=== PATIENT | female | born 1955 | race Caucasian/White ===

== ENCOUNTER → 2016-10-20 | Outpatient (REF) | payer MEDICARE, MEDICAID ==
[~2016-10-20] MED LIST: BABY81CH; CALCIUM & VITAMIN D; CLARITAN; DEBROX; LACT10SO8; MULTIVIT; PANCREASE; PRIL40CA; ZOCO20TA
== END ==
LOC: M WUC 18:10
PROVIDERS: ATTEND Physician Assistant
DX: N39.0 Urinary tract infection, site not specified (principal)

== ENCOUNTER → 2016-10-27 | Outpatient (CLI) | payer MEDICARE, MEDICAID ==
[2016-10-27 09:36] LABS: MEAN CORPUSCULAR HEMOGLOBIN 28.7 pg (27.0-33.0); MEAN CORPUSCULAR HGB CONC 33.4 g/dl (32.0-36.5); MEAN CORPUSCULAR VOLUME 85.7 fl (80.0-96.0); RED CELL DISTRIBUTION WIDTH 12.4 % (11.5-14.5); WHITE BLOOD COUNT 5.4 K/mm3 (4.0-10.0)
--- NOTE | 2016-10-27 09:36 | REP ---
Clinical: thoracic pain. Technique: AP, lateral, and swimmers views. Comparison: 06/12/2008 Findings: Alignment and kyphosis is maintained. Vertebral bodies intact. No acute fracture / compression injury or subluxation. Mild age-related changes. Paravertebral soft tissues are normal. Impression: Age appropriate thoracic spine series. No acute fracture / compression injury or subluxation. Signed by Willy Crocker MD 10/27/2016 09:27 A
--- NOTE | 2016-10-27 09:37 | REP ---
Clinical: Pain. Technique: AP, lateral, bilateral oblique and coned-down views. Comparison: 06/12/2008. Findings: No acute fracture / compression injury or subluxation. Alignment and lordosis maintained. Advanced multilevel degenerative changes include osteophytosis, endplate sclerosis/irregularity and disc space narrowing along with hypertrophic facet changes. Findings appear chronic and mildly progressive compared to prior examination. Impression: Multilevel degenerative changes progressive when compared to prior examination. No acute fracture / compression injury or subluxation. Signed by Willy Crocker MD 10/27/2016 09:29 A
[2016-10-27 09:45] LABS: ALBUMIN 3.3 GM/DL (3.2-5.2); ALBUMIN/GLOBULIN RATIO 1.06 (1.00-1.93); BILIRUBIN,TOTAL 0.3 MG/DL (0.2-1.0); CALCIUM LEVEL 8.8 MG/DL (8.8-10.2); CREATININE FOR GFR 1.22 MG/DL (0.55-1.02); GLOMERULAR FILTRATION RATE 47.5 (>45); POTASSIUM SERUM 4.1 MEQ/L (3.5-5.1); TOTAL PROTEIN 6.4 GM/DL (6.4-8.2)
[2016-10-27 10:11] LABS: ERYTHROCYTE SEDIMENTATION RATE 33 mm/hr (0-30)
[2016-10-27 10:51] LABS: EOSINOPHILS 5 % (0-5)
[2016-10-27 10:52] LABS: ANISOCYTOSIS 1+
== END ==
LOC: M LAB 08:29
PROVIDERS: ATTEND Family Medicine
DX: M47.816 Spondylosis without myelopathy or radiculopathy, lumbar region (principal); M51.37 Other intervertebral disc degeneration, lumbosacral region

== ENCOUNTER → 2016-10-31 | Outpatient (CLI) | payer MEDICARE, MEDICAID ==
--- NOTE | 2016-10-31 19:17 | REP ---
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 I suspect there is a small effusion in the suprapatellar pouch. No fracture or dislocation. There is soft tissue calcifications anterior to the tibial tuberosity, likely degenerative. Signed by Bharathi Armstrong MD 10/31/2016 07:09 P
== END ==
LOC: M WUC 16:44
PROVIDERS: ATTEND Physician Assistant Medical
DX: M25.461 Effusion, right knee (principal); M25.462 Effusion, left knee; M17.4 Other bilateral secondary osteoarthritis of knee; M79.9 Soft tissue disorder, unspecified

== ENCOUNTER → 2016-12-01 | Outpatient (CLI) | payer MEDICARE, MEDICAID ==
[2016-12-01 09:51] LABS: BASO % 0.4 % (0.0-1.0); EOS # 0.1 K/mm3 (0.0-0.50); LARGE UNSTAINED CELL # 0.1 K/mm3 (0.0-0.4); LARGE UNSTAINED CELL % 1.8 % (0.0-4.0); LYMPH # 1.5 K/mm3 (1.5-4.5); LYMPH % 27.2 % (24.0-44.0); MEAN CORPUSCULAR HEMOGLOBIN 27.9 pg (27.0-33.0); MEAN CORPUSCULAR HGB CONC 32.4 g/dl (32.0-36.5); MEAN CORPUSCULAR VOLUME 86.3 fl (80.0-96.0); MONO # 0.4 K/mm3 (0.0-0.8); MONO % 6.8 % (0.0-5.0); NEUTROPHILS # 3.1 K/mm3 (1.8-7.7); NEUTROPHILS % 61.8 % (36.0-66.0); PLATELET COUNT, AUTOMATED 165 k/mm3 (150-450); RED CELL DISTRIBUTION WIDTH 12.4 % (11.5-14.5); WHITE BLOOD COUNT 5.1 K/mm3 (4.0-10.0)
[2016-12-01 09:56] LABS: ALBUMIN 3.4 GM/DL (3.2-5.2); ALBUMIN/GLOBULIN RATIO 1.17 (1.00-1.93); ALKALINE PHOSPHATASE 52 U/L (45-117); ALT/SGPT 25 U/L (12-78); ANION GAP 6 MEQ/L (8-16); AST/SGOT 22 U/L (15-37); BILIRUBIN,TOTAL 0.3 MG/DL (0.2-1.0); BLOOD UREA NITROGEN 14 MG/DL (7-18); CALCIUM LEVEL 8.9 MG/DL (8.8-10.2); CARBON DIOXIDE LEVEL 33 MEQ/L (21-32); CHLORIDE LEVEL 100 MEQ/L (98-107); CREATININE FOR GFR 1.26 MG/DL (0.55-1.02); GLOMERULAR FILTRATION RATE 45.8 (>45); GLUCOSE, FASTING 94 MG/DL (80-110); POTASSIUM SERUM 4.8 MEQ/L (3.5-5.1); SODIUM LEVEL 139 MEQ/L (136-145); TOTAL PROTEIN 6.3 GM/DL (6.4-8.2)
== END ==
LOC: M LAB 09:05
PROVIDERS: ATTEND Family Medicine
DX: E03.9 Hypothyroidism, unspecified (principal); B35.1 Tinea unguium; N18.3 Chronic kidney disease, stage 3 (moderate); E78.5 Hyperlipidemia, unspecified; R73.01 Impaired fasting glucose; M85.80 Other specified disorders of bone density and structure, unspecified site; K86.89 Other specified diseases of pancreas

== ENCOUNTER → 2017-01-10 | Outpatient (REF) | payer MEDICARE, MEDICAID ==
[2017-01-10 12:05] LABS: ALBUMIN 3.3 GM/DL (3.2-5.2); ALKALINE PHOSPHATASE 46 U/L (45-117); ALT/SGPT 17 U/L (12-78); AMYLASE 58 U/L (25-115); ANION GAP 5 MEQ/L (8-16); AST/SGOT 20 U/L (15-37); BILIRUBIN,TOTAL 0.3 MG/DL (0.2-1.0); BLOOD UREA NITROGEN 19 MG/DL (7-18); CALCIUM LEVEL 9.2 MG/DL (8.8-10.2); CARBON DIOXIDE LEVEL 33 MEQ/L (21-32); CHLORIDE LEVEL 99 MEQ/L (98-107); CREATININE FOR GFR 1.18 MG/DL (0.55-1.02); GLOMERULAR FILTRATION RATE 49.4 (>45); GLUCOSE, FASTING 63 MG/DL (80-110); POTASSIUM SERUM 4.5 MEQ/L (3.5-5.1); SODIUM LEVEL 137 MEQ/L (136-145); TOTAL PROTEIN 6.3 GM/DL (6.4-8.2)
[2017-01-10 12:06] LABS: BASOPHILS 3 % (0-4); EOSINOPHILS 1 % (0-5)
[2017-01-10 12:39] LABS: MEAN CORPUSCULAR HEMOGLOBIN 28.2 pg (27.0-33.0); MEAN CORPUSCULAR HGB CONC 32.2 g/dl (32.0-36.5); MEAN CORPUSCULAR VOLUME 87.3 fl (80.0-96.0); RED CELL DISTRIBUTION WIDTH 12.5 % (11.5-14.5); WHITE BLOOD COUNT 5.5 K/mm3 (4.0-10.0)
[2017-01-10 13:15] LABS: ERYTHROCYTE SEDIMENTATION RATE 7 mm/hr (0-30)
== END ==
LOC: M SFHCPLAZ 08:41
PROVIDERS: ATTEND Family Medicine
DX: M47.816 Spondylosis without myelopathy or radiculopathy, lumbar region (principal)

== ENCOUNTER → 2017-01-17 | Outpatient (REF) | payer MEDICARE, MEDICAID ==
[2017-01-17 14:00] LABS: ALBUMIN 3.5 GM/DL (3.2-5.2); ALBUMIN/GLOBULIN RATIO 1.25 (1.00-1.93); BILIRUBIN,TOTAL 0.4 MG/DL (0.2-1.0); CALCIUM LEVEL 9.2 MG/DL (8.8-10.2); CREATININE FOR GFR 1.2 MG/DL (0.55-1.02); FREE T4 0.94 NG/DL (0.76-1.46); GLOMERULAR FILTRATION RATE 48.5 (>45); MAGNESIUM LEVEL 1.9 MG/DL (1.8-2.4); PERCENT SATURATION 25.2 % (13.2-37.4); POTASSIUM SERUM 4.8 MEQ/L (3.5-5.1); TOTAL PROTEIN 6.3 GM/DL (6.4-8.2)
== END ==
LOC: M SFHCPLAZ 11:55
PROVIDERS: ATTEND Family Medicine
DX: N18.3 Chronic kidney disease, stage 3 (moderate) (principal); E03.9 Hypothyroidism, unspecified
CPT/HCPCS: 36415; 80053; 82306; 82728; 83550; 83735; 83970; 84439; 84443; G0463

== ENCOUNTER 2017-02-01 11:15 | Outpatient (CLI) | payer MEDICARE, MEDICAID ==
[2017-02-01] MEDS ORDERED: ZOLEDRONIC ACID 5 MG in APPROPRIATE DILUENT 1 EA IV ONE (11:30)
== END 2017-02-01 12:15 | disposition home or self-care (01) ==
LOC: M INFU 11:15
PROVIDERS: ATTEND Family Medicine
DX: M85.80 Other specified disorders of bone density and structure, unspecified site (principal); I10 Essential (primary) hypertension; E78.5 Hyperlipidemia, unspecified; K21.9 Gastro-esophageal reflux disease without esophagitis; F32.9 Major depressive disorder, single episode, unspecified; M19.90 Unspecified osteoarthritis, unspecified site; Z78.0 Asymptomatic menopausal state; Z88.5 Allergy status to narcotic agent; Z88.8 Allergy status to other drugs, medicaments and biological substances; Z79.82 Long term (current) use of aspirin; Z79.899 Other long term (current) drug therapy
CPT/HCPCS: 96365; J3489

== ENCOUNTER → 2017-05-27 | Outpatient (CLI) | payer MEDICARE, MEDICAID ==
--- NOTE | 2017-05-27 10:30 | REPMRS ---
Patient History The patient states she had a clinical breast exam in 05/2017. Digital Woman Screen Mammo: May 27, 2017 - Exam #: [id number] Bilateral CC and MLO view(s) were taken. Technologist: Geetha Butler, Technologist Prior study comparison: May 25, 2016, digital woman screen mammo performed at [facility]. May 25, 2015, digital woman screen mammo performed at [facility]. FINDINGS: The breast tissue is heterogeneously dense. This may lower the sensitivity of mammography. There has been no change in the appearance of the mammogram from the prior studies. There is a moderate amount of residual fibroglandular tissue which is fairly symmetric. There is no interval development of dominant mass, areas of architectural distortion, or clustered microcalcification typical of malignancy. ASSESSMENT: BI-RADS/ACR category 1 mammogram. Negative. Recommendation Routine screening mammogram in 1 year (for women over age 40). This mammogram was interpreted with the aid of an FDA-approved computer-aided dectection system. Electronically Signed By: Bharathi Goddard MD 05/27/17 [id number]
== END ==
LOC: M WHC 08:10
PROVIDERS: ATTEND Family Medicine
DX: Z01.419 Encounter for gynecological examination (general) (routine) without abnormal findings (principal); Z12.31 Encounter for screening mammogram for malignant neoplasm of breast
CPT/HCPCS: G0101; G0202

== ENCOUNTER → 2017-05-30 | Outpatient (REF) | payer MEDICARE, MEDICAID ==
[2017-05-30 12:46] LABS: BASO % 0.5 % (0.0-1.0); EOS # 0.1 K/mm3 (0.0-0.50); EOS % 1.3 % (0.0-3.0); LARGE UNSTAINED CELL # 0.1 K/mm3 (0.0-0.4); LARGE UNSTAINED CELL % 1.9 % (0.0-4.0); LYMPH # 1.3 K/mm3 (1.5-4.5); LYMPH % 23.7 % (24.0-44.0); MEAN CORPUSCULAR HEMOGLOBIN 29.1 pg (27.0-33.0); MEAN CORPUSCULAR HGB CONC 33.5 g/dl (32.0-36.5); MEAN CORPUSCULAR VOLUME 86.7 fl (80.0-96.0); MONO # 0.4 K/mm3 (0.0-0.8); MONO % 7.2 % (0.0-5.0); NEUTROPHILS # 3.6 K/mm3 (1.8-7.7); NEUTROPHILS % 65.4 % (36.0-66.0); PLATELET COUNT, AUTOMATED 169 k/mm3 (150-450); RED CELL DISTRIBUTION WIDTH 12.4 % (11.5-14.5); WHITE BLOOD COUNT 5.6 K/mm3 (4.0-10.0)
[2017-05-30 13:18] LABS: ALBUMIN 3.6 GM/DL (3.2-5.2); ALBUMIN/GLOBULIN RATIO 1.06 (1.00-1.93); ALKALINE PHOSPHATASE 48 U/L (45-117); ALT/SGPT 19 U/L (12-78); ANION GAP 5 MEQ/L (8-16); AST/SGOT 19 U/L (15-37); BILIRUBIN,TOTAL 0.5 MG/DL (0.2-1.0); BLOOD UREA NITROGEN 17 MG/DL (7-18); CALCIUM LEVEL 9.3 MG/DL (8.8-10.2); CARBON DIOXIDE LEVEL 32 MEQ/L (21-32); CHLORIDE LEVEL 100 MEQ/L (98-107); CHOLESTEROL LEVEL 203 MG/DL (<200); CREATININE FOR GFR 1.28 MG/DL (0.55-1.02); GLUCOSE, FASTING 73 MG/DL (80-110); POTASSIUM SERUM 4.5 MEQ/L (3.5-5.1); SODIUM LEVEL 137 MEQ/L (136-145); TRIGLYCERIDES LEVEL 105 MG/DL (<150)
[2017-05-31 10:11] LABS: THYROID PEROXIDASE ANTIBODY < 28.0 U/ML (<60.0)
== END ==
LOC: M SFHCPLAZ 10:48
PROVIDERS: ATTEND Family Medicine
DX: N18.3 Chronic kidney disease, stage 3 (moderate) (principal); E78.5 Hyperlipidemia, unspecified; R73.01 Impaired fasting glucose; K86.89 Other specified diseases of pancreas

== ENCOUNTER → 2017-08-27 | Outpatient (REF) | payer MEDICARE, MEDICAID | LOC: M SFHCPLAZ 11:42 | PROVIDERS: ATTEND Family Medicine | DX: R32 Unspecified urinary incontinence (principal); E03.9 Hypothyroidism, unspecified; R73.01 Impaired fasting glucose; Z53.8 Procedure and treatment not carried out for other reasons ==

== ENCOUNTER → 2017-08-28 | Outpatient (CLI) | payer MEDICARE, MEDICAID ==
[2017-08-28 07:32] LABS: BASO % 0.4 % (0.0-1.0); EOS # 0.1 10^3/uL (0.0-0.50); EOS % 1.5 % (0.0-3.0); IMMATURE GRANULOCYTE % 0.3 % (0-0); LYMPH # 1.8 10^3/uL (1.5-4.5); LYMPH % 25.8 % (24.0-44.0); MEAN CORPUSCULAR HEMOGLOBIN 28.2 pg (27.0-33.0); MEAN CORPUSCULAR HGB CONC 32.4 g/dl (32.0-36.5); MEAN CORPUSCULAR VOLUME 86.9 fl (80.0-96.0); MONO # 0.5 10^3/uL (0.0-0.8); MONO % 7.2 % (0.0-5.0); NEUTROPHILS # 4.4 10^3/uL (1.8-7.7); NEUTROPHILS % 64.8 % (36.0-66.0); PLATELET COUNT, AUTOMATED 196 10^3/uL (150-450); RED CELL DISTRIBUTION WIDTH 12.9 % (11.5-14.5); WHITE BLOOD COUNT 6.8 10^3/uL (4.0-10.0)
[2017-08-28 07:37] LABS: YEAST LIKE CELL URINE AUTO NONE SEEN
[2017-08-28 07:41] LABS: MICROSCOPIC INDICATED? NO (NO)
[2017-08-28 07:53] LABS: ALBUMIN 3.6 GM/DL (3.2-5.2); ALBUMIN/GLOBULIN RATIO 1.24 (1.00-1.93); BILIRUBIN,TOTAL 0.4 MG/DL (0.2-1.0); CALCIUM LEVEL 9.1 MG/DL (8.8-10.2); CREATININE FOR GFR 1.2 MG/DL (0.55-1.02); FREE T4 0.98 NG/DL (0.76-1.46); GLOMERULAR FILTRATION RATE 48.3 (>45); POTASSIUM SERUM 4.6 MEQ/L (3.5-5.1); TOTAL PROTEIN 6.5 GM/DL (6.4-8.2)
== END ==
LOC: M LAB 06:45
PROVIDERS: ATTEND Family Medicine
DX: R73.01 Impaired fasting glucose (principal); E03.9 Hypothyroidism, unspecified; Z79.899 Other long term (current) drug therapy

== ENCOUNTER → 2017-09-16 | Outpatient (REF) | payer MEDICARE, MEDICAID | LOC: M SFHCPLAZ 12:52 | PROVIDERS: ATTEND Family Medicine | DX: R32 Unspecified urinary incontinence (principal) | CPT/HCPCS: 51798; 81001; 87088; 87186; G0463 ==

== ENCOUNTER → 2017-12-04 | Outpatient (REF) | payer MEDICARE, MEDICAID | LOC: M LAB REF 09:10 | DX: R35.0 Frequency of micturition (principal) | CPT/HCPCS: 87086 ==

== ENCOUNTER → 2017-12-10 | Outpatient (CLI) | payer MEDICARE, MEDICAID | LOC: M SMT 13:42 | DX: J06.9 Acute upper respiratory infection, unspecified (principal); Z79.899 Other long term (current) drug therapy | CPT/HCPCS: 71046; 80053 ==

== ENCOUNTER → 2017-12-10 | Outpatient (REF) | payer MEDICARE, MEDICAID ==
[2017-12-10 15:49] LABS: BASO # 0.1 10^3/uL (0.0-0.2); BASO % 0.6 % (0.0-1.0); EOS # 0.1 10^3/uL (0.0-0.50); EOS % 1.6 % (0.0-3.0); HEMATOCRIT 44.2 % (36.0-47.0); HEMOGLOBIN 14.4 g/dl (12.0-16.0); IMMATURE GRANULOCYTE % 0.2 % (0-3.0); LYMPH # 1.8 10^3/uL (1.5-4.5); LYMPH % 21.2 % (24.0-44.0); MEAN CORPUSCULAR HEMOGLOBIN 27.8 pg (27.0-33.0); MEAN CORPUSCULAR HGB CONC 32.6 g/dl (32.0-36.5); MEAN CORPUSCULAR VOLUME 85.3 fl (80.0-96.0); MONO # 0.9 10^3/uL (0.0-0.8); MONO % 10.3 % (0.0-5.0); NEUTROPHILS # 5.7 10^3/uL (1.8-7.7); NEUTROPHILS % 66.1 % (36.0-66.0); PLATELET COUNT, AUTOMATED 198 10^3/uL (150-450); RED BLOOD COUNT 5.18 10^6/uL (4.00-5.40); WHITE BLOOD COUNT 8.7 10^3/uL (4.0-10.0)
[2017-12-10 15:53] LABS: APPEARANCE, URINE HAZY (CLEAR); BACTERIA, URINE AUTO NEGATIVE (NEGATIVE); BILIRUBIN, URINE AUTO NEGATIVE (NEGATIVE); BLOOD, URINE BLOOD NEGATIVE (NEGATIVE); COLOR, URINE YELLOW (YELLOW); GLUCOSE, URINE (UA) AUTO NEGATIVE (NEGATIVE); KETONE, URINE AUTO NEGATIVE (NEGATIVE); LEUKOCYTE ESTERASE, URINE AUTO TRACE (NEGATIVE); MUCUS, URINE SMALL (NEGATIVE); NITRITE, URINE AUTO NEGATIVE (NEGATIVE); PROTEIN, URINE AUTO NEGATIVE (NEGATIVE); RBC, URINE AUTO 0 /HPF (0-3); SPECIFIC GRAVITY URINE AUTO 1.016 (1.002-1.035); SQUAMOUS EPITHELIAL CELL UR AU 0 /HPF (0-6); UROBILINOGEN, URINE AUTO 0.2 mg/dL (0.0-2.0); WBC, URINE AUTO 7 /HPF (0-3)
[2017-12-10 16:07] LABS: ALBUMIN 3.8 GM/DL (3.2-5.2); ALBUMIN/GLOBULIN RATIO 1.19 (1.00-1.93); ALKALINE PHOSPHATASE 55 U/L (45-117); ALT/SGPT 23 U/L (12-78); ANION GAP 7 MEQ/L (8-16); AST/SGOT 23 U/L (7-37); BILIRUBIN,TOTAL 0.4 MG/DL (0.2-1.0); BLOOD UREA NITROGEN 24 MG/DL (7-18); CALCIUM LEVEL 9.3 MG/DL (8.8-10.2); CARBON DIOXIDE LEVEL 30 MEQ/L (21-32); CHLORIDE LEVEL 99 MEQ/L (98-107); GLUCOSE, FASTING 86 MG/DL (70-100); POTASSIUM SERUM 4.5 MEQ/L (3.5-5.1); SODIUM LEVEL 136 MEQ/L (136-145)
== END ==
LOC: M SFHCPLAZ 15:31
DX: J06.9 Acute upper respiratory infection, unspecified (principal); R32 Unspecified urinary incontinence
CPT/HCPCS: 80053

== ENCOUNTER → 2017-12-23 | Outpatient (CLI) | payer MEDICARE, MEDICAID | LOC: M WHC 10:29 | DX: M85.80 Other specified disorders of bone density and structure, unspecified site (principal); M81.0 Age-related osteoporosis without current pathological fracture | CPT/HCPCS: 77080 ==

== ENCOUNTER → 2018-02-17 | Outpatient (CLI) | payer MEDICARE, MEDICAID ==
[2018-02-17 06:50] LABS: BASO % 0.6 % (0.0-1.0); EOS % 2.4 % (0.0-3.0); HEMATOCRIT 41.7 % (36.0-47.0); HEMOGLOBIN 13.8 g/dl (12.0-15.5); IMMATURE GRANULOCYTE % 0.1 % (0-3.0); LYMPH # 1.8 10^3/uL (1.5-4.5); LYMPH % 26.7 % (24.0-44.0); MEAN CORPUSCULAR HEMOGLOBIN 28.5 pg (27.0-33.0); MEAN CORPUSCULAR HGB CONC 33.1 g/dl (32.0-36.5); MEAN CORPUSCULAR VOLUME 86.2 fl (80.0-96.0); MONO % 8.6 % (0.0-5.0); NEUTROPHILS # 4.2 10^3/uL (1.8-7.7); NEUTROPHILS % 61.6 % (36.0-66.0); PLATELET COUNT, AUTOMATED 180 10^3/uL (150-450); RED BLOOD COUNT 4.84 10^6/uL (4.00-5.40); RED CELL DISTRIBUTION WIDTH 13.2 % (11.5-14.5); WHITE BLOOD COUNT 6.8 10^3/uL (4.0-10.0)
[2018-02-17 06:51] LABS: EOS # 0.2 10^3/uL (0.0-0.50); MONO # 0.6 10^3/uL (0.0-0.8); RETIC HEMOGLOBIN EQUIVALENT 33.3 pg (24-36); RETICULOCYTE # 55.7 10^9/L (17-77); RETICULOCYTE % 1.2 % (0.5-1.5)
[2018-02-17 07:11] LABS: ESTIMATED AVERAGE GLUCOSE 123 MG/DL (60-110); HEMOGLOBIN A1c 5.9 %
[2018-02-17 07:23] LABS: ALBUMIN 3.5 GM/DL (3.2-5.2); ALBUMIN/GLOBULIN RATIO 1.06 (1.00-1.93); ALKALINE PHOSPHATASE 57 U/L (45-117); ALT/SGPT 34 U/L (12-78); ANION GAP 6 MEQ/L (8-16); AST/SGOT 34 U/L (7-37); BILIRUBIN,TOTAL 0.4 MG/DL (0.2-1.0); BLOOD UREA NITROGEN 20 MG/DL (7-18); CALCIUM LEVEL 8.7 MG/DL (8.8-10.2); CARBON DIOXIDE LEVEL 31 MEQ/L (21-32); CHLORIDE LEVEL 102 MEQ/L (98-107); CREATININE FOR GFR 1.41 MG/DL (0.55-1.30); GLOMERULAR FILTRATION RATE 40.1 (>45); GLUCOSE, FASTING 92 MG/DL (70-100); POTASSIUM SERUM 4.3 MEQ/L (3.5-5.1); SODIUM LEVEL 139 MEQ/L (136-145); TOTAL PROTEIN 6.8 GM/DL (6.4-8.2)
[2018-02-17 10:33] LABS: TOTAL 25(OH) VITAMIN D 63.3 NG/ML (30.0-100.0)
[2018-02-17 10:34] LABS: PTH INTACT 83.7 PG/ML (18.5-88.0)
== END ==
LOC: M LAB 06:24
DX: N18.3 Chronic kidney disease, stage 3 (moderate) (principal); E55.9 Vitamin D deficiency, unspecified; R73.01 Impaired fasting glucose
CPT/HCPCS: 80053

== ENCOUNTER → 2018-05-23 | Outpatient (CLI) | payer MEDICARE, MEDICAID ==
[2018-05-23 07:33] LABS: BASO % 0.5 % (0.0-1.0); EOS # 0.1 10^3/uL (0.0-0.50); EOS % 2.4 % (0.0-3.0); HEMATOCRIT 43.5 % (36.0-47.0); HEMOGLOBIN 14.3 g/dl (12.0-15.5); IMMATURE GRANULOCYTE % 0.3 % (0-3.0); LYMPH # 1.6 10^3/uL (1.5-4.5); MEAN CORPUSCULAR HEMOGLOBIN 28.4 pg (27.0-33.0); MEAN CORPUSCULAR HGB CONC 32.9 g/dl (32.0-36.5); MEAN CORPUSCULAR VOLUME 86.5 fl (80.0-96.0); MONO # 0.5 10^3/uL (0.0-0.8); MONO % 8.8 % (0.0-5.0); NEUTROPHILS # 3.6 10^3/uL (1.8-7.7); PLATELET COUNT, AUTOMATED 182 10^3/uL (150-450); RED BLOOD COUNT 5.03 10^6/uL (4.00-5.40); RED CELL DISTRIBUTION WIDTH 13.1 % (11.5-14.5); WHITE BLOOD COUNT 5.9 10^3/uL (4.0-10.0)
[2018-05-23 07:58] LABS: ALBUMIN 3.3 GM/DL (3.2-5.2); ALBUMIN/GLOBULIN RATIO 0.94 (1.00-1.93); ALKALINE PHOSPHATASE 51 U/L (45-117); ALT/SGPT 27 U/L (12-78); ANION GAP 6 MEQ/L (8-16); AST/SGOT 24 U/L (7-37); BILIRUBIN,TOTAL 0.3 MG/DL (0.2-1.0); BLOOD UREA NITROGEN 14 MG/DL (7-18); C REACTIVE PROTEIN QUANTITATIV < 0.30 MG/DL (0.00-0.30); CARBON DIOXIDE LEVEL 32 MEQ/L (21-32); CHLORIDE LEVEL 100 MEQ/L (98-107); CHOLESTEROL LEVEL 175 MG/DL (<200); CPK CREATINE PHOSPHOKINASE 94 U/L (26-192); CREATININE FOR GFR 1.21 MG/DL (0.55-1.30); FREE T4 0.99 NG/DL (0.76-1.46); GLOMERULAR FILTRATION RATE 47.8 (>45); GLUCOSE, FASTING 93 MG/DL (70-100); HDL CHOLESTEROL 72 MG/DL (>40); LDL CHOLESTEROL 76.2 MG/DL (<100); NON-HDL-C 103 MG/DL; POTASSIUM SERUM 4.4 MEQ/L (3.5-5.1); SODIUM LEVEL 138 MEQ/L (136-145); TOTAL PROTEIN 6.8 GM/DL (6.4-8.2); TRIGLYCERIDES LEVEL 134 MG/DL (<150)
[2018-05-23 09:50] LABS: ESTIMATED AVERAGE GLUCOSE 131 MG/DL (60-110); HEMOGLOBIN A1c 6.2 %
== END ==
LOC: M LAB 06:21
DX: N18.3 Chronic kidney disease, stage 3 (moderate) (principal); E78.5 Hyperlipidemia, unspecified; R73.09 Other abnormal glucose
CPT/HCPCS: 82550

== ENCOUNTER → 2018-06-10 | Outpatient (CLI) | payer MEDICARE, MEDICAID | LOC: M RAD 09:41 | DX: K86.89 Other specified diseases of pancreas (principal); K76.89 Other specified diseases of liver | CPT/HCPCS: 76700 ==

== ENCOUNTER → 2018-09-09 | Outpatient (CLI) | payer MEDICARE, MEDICAID | LOC: M WHC 13:31 | DX: Z01.419 Encounter for gynecological examination (general) (routine) without abnormal findings (principal); Z12.31 Encounter for screening mammogram for malignant neoplasm of breast (principal) | CPT/HCPCS: 77067 ==

== ENCOUNTER → 2018-10-08 | Outpatient (CLI) | payer MEDICARE, MEDICAID ==
[2018-10-08 07:50] LABS: APPEARANCE, URINE CLOUDY (CLEAR); BACTERIA, URINE AUTO 3+ (NEGATIVE); BILIRUBIN, URINE AUTO NEGATIVE (NEGATIVE); BLOOD, URINE BLOOD NEGATIVE (NEGATIVE); COLOR, URINE YELLOW (YELLOW); GLUCOSE, URINE (UA) AUTO NEGATIVE (NEGATIVE); KETONE, URINE AUTO NEGATIVE (NEGATIVE); LEUKOCYTE ESTERASE, URINE AUTO 3+ (NEGATIVE); NITRITE, URINE AUTO POSITIVE (NEGATIVE); PROTEIN, URINE AUTO NEGATIVE (NEGATIVE); RBC, URINE AUTO 19 /HPF (0-3); SPECIFIC GRAVITY URINE AUTO 1.019 (1.002-1.035); SQUAMOUS EPITHELIAL CELL UR AU 5 /HPF (0-6); UROBILINOGEN, URINE AUTO 0.2 mg/dL (0.0-2.0); WBC, URINE AUTO TNTC /HPF (0-3)
[2018-10-08 08:16] LABS: BILIRUBIN,TOTAL 0.3 MG/DL (0.2-1.0); CALCIUM LEVEL 8.5 MG/DL (8.8-10.2); CREATININE FOR GFR 1.35 MG/DL (0.55-1.30); TOTAL PROTEIN 6.4 GM/DL (6.4-8.2)
[2018-10-08 08:18] LABS: HEMOGLOBIN A1c 6.3 %
[2018-10-08 08:24] LABS: TOTAL 25(OH) VITAMIN D 57.3 NG/ML (30.0-100.0)
[2018-10-08 08:41] LABS: MALB URINE SIEMENS 58.5 MG/L; MAU/CREAT RATIO 28.5 MCG/MG (0.0-30.0)
== END ==
LOC: M LAB 07:10
PROVIDERS: ATTEND Family Medicine
DX: R73.01 Impaired fasting glucose (principal); E55.9 Vitamin D deficiency, unspecified

== ENCOUNTER → 2018-10-17 | Outpatient (REF) | payer MEDICARE, MEDICAID ==
[2018-10-17 13:38] LABS: AMORPHOUS SEDIMENT SMALL (NEGATIVE); APPEARANCE, URINE CLOUDY (CLEAR); BACTERIA, URINE AUTO NEGATIVE (NEGATIVE); BILIRUBIN, URINE AUTO NEGATIVE (NEGATIVE); BLOOD, URINE BLOOD NEGATIVE (NEGATIVE); COLOR, URINE YELLOW (YELLOW); GLUCOSE, URINE (UA) AUTO NEGATIVE (NEGATIVE); KETONE, URINE AUTO NEGATIVE (NEGATIVE); LEUKOCYTE ESTERASE, URINE AUTO 3+ (NEGATIVE); MUCUS, URINE SMALL (NEGATIVE); NITRITE, URINE AUTO POSITIVE (NEGATIVE); PROTEIN, URINE AUTO NEGATIVE (NEGATIVE); RBC, URINE AUTO 15 /HPF (0-3); SPECIFIC GRAVITY URINE AUTO 1.017 (1.002-1.035); SQUAMOUS EPITHELIAL CELL UR AU 1 /HPF (0-6); UROBILINOGEN, URINE AUTO 0.2 mg/dL (0.0-2.0); WBC, URINE AUTO TNTC /HPF (0-3)
== END ==
LOC: M LABDRAWP 11:56
PROVIDERS: ATTEND Family Medicine
DX: N39.0 Urinary tract infection, site not specified (principal)
CPT/HCPCS: 81001; 87088; 87186; G0463

== ENCOUNTER → 2018-11-05 | Outpatient (REF) | payer MEDICARE, MEDICAID ==
[2018-11-05 14:12] LABS: APPEARANCE, URINE CLOUDY (CLEAR); BACTERIA, URINE AUTO 1+ (NEGATIVE); BILIRUBIN, URINE AUTO NEGATIVE (NEGATIVE); BLOOD, URINE BLOOD 1+ (NEGATIVE); COLOR, URINE YELLOW (YELLOW); GLUCOSE, URINE (UA) AUTO NEGATIVE (NEGATIVE); KETONE, URINE AUTO NEGATIVE (NEGATIVE); LEUKOCYTE ESTERASE, URINE AUTO 3+ (NEGATIVE); NITRITE, URINE AUTO NEGATIVE (NEGATIVE); PROTEIN, URINE AUTO NEGATIVE (NEGATIVE); RBC, URINE AUTO 4 /HPF (0-3); SPECIFIC GRAVITY URINE AUTO 1.011 (1.002-1.035); SQUAMOUS EPITHELIAL CELL UR AU 1 /HPF (0-6); UROBILINOGEN, URINE AUTO 0.2 mg/dL (0.0-2.0); WBC, URINE AUTO 10 /HPF (0-3)
== END ==
LOC: M SFHCPLAZ 13:01
PROVIDERS: ATTEND Nurse Practitioner Family
DX: N39.0 Urinary tract infection, site not specified (principal)

== ENCOUNTER → 2018-11-17 | Outpatient (REF) | payer MEDICARE, MEDICAID ==
[2018-11-17 19:21] LABS: APPEARANCE, URINE CLEAR (CLEAR); BACTERIA, URINE AUTO NEGATIVE (NEGATIVE); BILIRUBIN, URINE AUTO NEGATIVE (NEGATIVE); BLOOD, URINE BLOOD NEGATIVE (NEGATIVE); COLOR, URINE YELLOW (YELLOW); GLUCOSE, URINE (UA) AUTO NEGATIVE (NEGATIVE); KETONE, URINE AUTO NEGATIVE (NEGATIVE); LEUKOCYTE ESTERASE, URINE AUTO TRACE (NEGATIVE); NITRITE, URINE AUTO NEGATIVE (NEGATIVE); PROTEIN, URINE AUTO NEGATIVE (NEGATIVE); RBC, URINE AUTO 0 /HPF (0-3); SQUAMOUS EPITHELIAL CELL UR AU 0 /HPF (0-6); UROBILINOGEN, URINE AUTO 0.2 mg/dL (0.0-2.0); WBC, URINE AUTO 5 /HPF (0-3)
== END ==
LOC: M SFHCPLAZ 17:17
PROVIDERS: ATTEND Nurse Practitioner Family
DX: N39.0 Urinary tract infection, site not specified (principal)

== ENCOUNTER → 2019-04-07 | Outpatient (REF) | payer MEDICARE, MEDICAID ==
[2019-04-07 13:40] LABS: ALBUMIN 3.6 GM/DL (3.2-5.2); BILIRUBIN,TOTAL 0.4 MG/DL (0.2-1.0); CALCIUM LEVEL 9.2 MG/DL (8.8-10.2); CREATININE FOR GFR 1.44 MG/DL (0.55-1.30); POTASSIUM SERUM 4.8 MEQ/L (3.5-5.1); TOTAL PROTEIN 6.9 GM/DL (6.4-8.2)
[2019-04-07 13:45] LABS: PTH INTACT 37.6 PG/ML (18.5-88.0)
== END ==
LOC: M SFHCPLAZ 10:55
PROVIDERS: ATTEND Family Medicine
DX: N18.3 Chronic kidney disease, stage 3 (moderate) (principal); R73.01 Impaired fasting glucose
CPT/HCPCS: 36415; 80053; 82306; 83036; 83970; G0463

== ENCOUNTER → 2019-07-03 | Outpatient (CLI) | payer MEDICARE, MEDICAID ==
[2019-07-03 07:50] LABS: BASO # 0.1 10^3/uL (0.0-0.2); BASO % 0.8 % (0.0-1.0); EOS # 0.1 10^3/uL (0.0-0.5); EOS % 2.3 % (0.0-3.0); HEMATOCRIT 40.8 % (36.0-47.0); HEMOGLOBIN 13.5 g/dl (12.0-15.5); LYMPH # 1.3 10^3/uL (1.5-5.0); LYMPH % 21.2 % (24.0-44.0); MEAN CORPUSCULAR HEMOGLOBIN 28.3 pg (27.0-33.0); MEAN CORPUSCULAR HGB CONC 33.1 g/dl (32.0-36.5); MEAN CORPUSCULAR VOLUME 85.5 fl (80.0-96.0); MONO # 0.6 10^3/uL (0.0-0.8); MONO % 9.3 % (0.0-5.0); NEUTROPHILS # 4.1 10^3/uL (1.5-8.5); NEUTROPHILS % 66.1 % (36.0-66.0); PLATELET COUNT, AUTOMATED 183 10^3/uL (150-450); RED BLOOD COUNT 4.77 10^6/uL (4.00-5.40); WHITE BLOOD COUNT 6.2 10^3/uL (4.0-10.0)
[2019-07-03 07:52] LABS: AMORPHOUS SEDIMENT SMALL (NEGATIVE); APPEARANCE, URINE CLOUDY (CLEAR); BACTERIA, URINE AUTO 3+ (NEGATIVE); BILIRUBIN, URINE AUTO NEGATIVE (NEGATIVE); BLOOD, URINE BLOOD 1+ (NEGATIVE); COLOR, URINE YELLOW (YELLOW); GLUCOSE, URINE (UA) AUTO NEGATIVE (NEGATIVE); KETONE, URINE AUTO NEGATIVE (NEGATIVE); LEUKOCYTE ESTERASE, URINE AUTO 3+ (NEGATIVE); MUCUS, URINE SMALL (NEGATIVE); NITRITE, URINE AUTO POSITIVE (NEGATIVE); PROTEIN, URINE AUTO NEGATIVE (NEGATIVE); RBC, URINE AUTO 12 /HPF (0-3); SPECIFIC GRAVITY URINE AUTO 1.012 (1.002-1.035); SQUAMOUS EPITHELIAL CELL UR AU 2 /HPF (0-6); TRANSITIONAL EPITHELIAL AUTO 3 /HPF; UROBILINOGEN, URINE AUTO 0.2 mg/dL (0.0-2.0); WBC, URINE AUTO 36 /HPF (0-3)
[2019-07-03 08:22] LABS: ALBUMIN 3.5 GM/DL (3.2-5.2); BILIRUBIN,TOTAL 0.5 MG/DL (0.2-1.0); CALCIUM LEVEL 9.1 MG/DL (8.8-10.2); CREATININE FOR GFR 1.43 MG/DL (0.55-1.30); FREE T4 0.97 NG/DL (0.76-1.46); GLOMERULAR FILTRATION RATE 39.3 (>45); POTASSIUM SERUM 4.4 MEQ/L (3.5-5.1); THYROID STIMULATING HORMONE 2.03 uIU/ML (0.358-3.740); TOTAL PROTEIN 6.5 GM/DL (6.4-8.2)
[2019-07-03 08:23] LABS: MALB URINE SIEMENS 17.4 MG/L
[2019-07-03 08:46] LABS: PTH INTACT 49.4 PG/ML (18.5-88.0)
== END ==
LOC: M LAB 06:41
PROVIDERS: ATTEND Family Medicine
DX: R73.01 Impaired fasting glucose (principal); Z79.899 Other long term (current) drug therapy

== ENCOUNTER → 2019-07-09 | Outpatient (CLI) | payer MEDICARE, MEDICAID ==
--- NOTE | 2019-07-09 09:58 | REP ---
RENAL ULTRASOUND WITH DUPLEX DOPPLER RENAL ARTERY EVALUATION: Real-time sonographic evaluation of the kidneys performed. Right kidney is atrophic 6.6 x 3.3 x 3.2 cm. Left kidney measures 9.0 x 4.7 x 5.4 cm. There is no hydronephrosis bilaterally. No renal mass is seen. Ureteral jets are not visualized in the urinary bladder with Doppler color evaluation. Real-time ultrasound evaluation and duplex Doppler interrogation of the renal arteries is performed bilaterally. Peak systolic velocity of the abdominal aorta at the level of the renal arteries is 105 cm/s. Peak systolic velocity of the main right renal artery is 98.4 cm/s, renal to aortic ratio is 0.94. Resistive indices are measured in the upper, middle, and lower thirds of the right kidney and range between 0.65 and 0.73. Acceleration times range between 0.034 and 0.058. Peak systolic velocity of the main left renal artery is 117 cm/s, renal to aortic ratio 1.11. Resistive indices of the left kidney range between 0.067 and 0.75. Acceleration times range between 0.036 and 0.046. IMPRESSION: Moderate right renal atrophy. No hydronephrosis. No compelling duplex Doppler sonographic evidence of significant renal artery stenosis bilaterally. Electronically Signed by Bharathi Goddard MD 07/09/2019 10:01 A
== END ==
LOC: M RAD 08:03
PROVIDERS: ATTEND Family Medicine
DX: N18.3 Chronic kidney disease, stage 3 (moderate) (principal); N26.1 Atrophy of kidney (terminal)

== ENCOUNTER → 2019-11-17 | Outpatient (CLI) | payer MEDICARE, MEDICAID ==
[2019-11-17 07:14] LABS: BASO # 0.1 10^3/uL (0.0-0.2); BASO % 0.8 % (0.0-1.0); EOS # 0.1 10^3/uL (0.0-0.5); EOS % 2.3 % (0.0-3.0); HEMATOCRIT 45.1 % (36.0-47.0); HEMOGLOBIN 14.2 g/dl (12.0-15.5); LYMPH # 1.7 10^3/uL (1.5-5.0); MEAN CORPUSCULAR HEMOGLOBIN 27.4 pg (27.0-33.0); MEAN CORPUSCULAR HGB CONC 31.5 g/dl (32.0-36.5); MEAN CORPUSCULAR VOLUME 87.1 fl (80.0-96.0); MONO # 0.5 10^3/uL (0.0-0.8); MONO % 8.7 % (0.0-5.0); NEUTROPHILS # 3.6 10^3/uL (1.5-8.5); PLATELET COUNT, AUTOMATED 189 10^3/uL (150-450); RED BLOOD COUNT 5.18 10^6/uL (4.00-5.40); WHITE BLOOD COUNT 6.1 10^3/uL (4.0-10.0)
[2019-11-17 07:32] LABS: HEMOGLOBIN A1c 6.2 %
[2019-11-17 07:50] LABS: ALBUMIN 3.6 GM/DL (3.2-5.2); ALT/SGPT 36 U/L (12-78); BILIRUBIN,TOTAL 0.3 MG/DL (0.2-1.0); BLOOD UREA NITROGEN 20 MG/DL (7-18); CALCIUM LEVEL 9.1 MG/DL (8.8-10.2); CARBON DIOXIDE LEVEL 34 MEQ/L (21-32); CHLORIDE LEVEL 98 MEQ/L (98-107); CHOLESTEROL LEVEL 197 MG/DL (<200); CHOLESTEROL RISK RATIO 2.736 (<5); CREATININE FOR GFR 1.36 MG/DL (0.55-1.30); FERRITIN 66 NG/ML (8-252); FREE T4 1.01 NG/DL (0.76-1.46); GLOMERULAR FILTRATION RATE 41.5 (>45); GLUCOSE, FASTING 94 MG/DL (70-100); HDL CHOLESTEROL 72 MG/DL (>40); LDL CHOLESTEROL 102 MG/DL (<100); NON-HDL-C 125 MG/DL; POTASSIUM SERUM 4.5 MEQ/L (3.5-5.1); SODIUM LEVEL 136 MEQ/L (136-145); TOTAL PROTEIN 6.8 GM/DL (6.4-8.2); TRIGLYCERIDES LEVEL 113 MG/DL (<150)
[2019-11-17 11:02] LABS: ALBUMIN 3.93 GM/DL (3.29-5.55); ALBUMIN % 57.8 % (55.8-66.1); ALPHA-1-GLOBULIN % 4.7 % (2.9-4.9); ALPHA-1-GLOBULINS 0.32 GM/DL (0.17-0.41); ALPHA-2-GLOBULINS 0.84 GM/DL (0.42-0.99); ALPHA-2-GLOBULINS % 12.3 % (7.1-11.8); BETA-1-GLOBULINS 0.46 GM/DL (0.28-0.60); BETA-1-GLOBULINS % 6.8 % (4.7-7.2); BETA-2-GLOBULINS % 4.4 % (3.2-6.5); GAMMA GLOBULINS 0.95 GM/DL (0.65-1.58)
== END ==
LOC: M LAB 06:36
PROVIDERS: ATTEND Family Medicine
DX: N18.3 Chronic kidney disease, stage 3 (moderate) (principal); E55.9 Vitamin D deficiency, unspecified; E78.5 Hyperlipidemia, unspecified; Z12.31 Encounter for screening mammogram for malignant neoplasm of breast; R73.01 Impaired fasting glucose

== ENCOUNTER → 2019-11-17 | Outpatient (CLI) | payer MEDICARE, MEDICAID ==
--- NOTE | 2019-11-17 12:35 | REPMRS ---
Patient History The patient states she has not had a clinical breast exam in over a year. No Hormone Replacement Therapy Digital Woman Screen Mammo: November 17, 2019 - Exam #: [id number] Bilateral CC and MLO view(s) were taken. Technologist: Geetha Butler, Technologist Prior study comparison: September 09, 2018, bilateral digital woman screen mammo performed at [facility]. May 27, 2017, digital woman screen mammo performed at [facility]. May 25, 2016, digital woman screen mammo performed at [facility]. FINDINGS: The breast tissue is heterogeneously dense. This may lower the sensitivity of mammography. There is a moderate amount of heterogeneously dense fibroglandular tissue which is fairly symmetric. There is no interval development of dominant mass, architectural distortion, or grouped microcalcification typical of malignancy. There has been no change in the appearance of the mammogram from the prior studies. Assessment: BI-RADS/ACR category 1 mammogram. Negative Mammogram. Recommendation Routine screening mammogram of both breasts in 1 year (for women over age 40). This patient's Lifetime Breast Cancer RIsk is estimated at 6.4 %. This mammogram was interpreted with the aid of an FDA-approved computer-aided dectection system. Electronically Signed By: Wagner Zapata MD 11/17/19 [id number]
== END ==
LOC: M WHC 11:37
PROVIDERS: ATTEND Family Medicine
DX: Z12.31 Encounter for screening mammogram for malignant neoplasm of breast (principal)

== ENCOUNTER → 2019-12-29 | Outpatient (CLI) | payer MEDICARE, MEDICAID ==
[2019-12-29 17:17] LABS: APPEARANCE, URINE CLOUDY (CLEAR); BACTERIA, URINE AUTO 3+ (NEGATIVE); BILIRUBIN, URINE AUTO NEGATIVE (NEGATIVE); BLOOD, URINE BLOOD 1+ (NEGATIVE); COLOR, URINE YELLOW (YELLOW); GLUCOSE, URINE (UA) AUTO NEGATIVE (NEGATIVE); KETONE, URINE AUTO NEGATIVE (NEGATIVE); LEUKOCYTE ESTERASE, URINE AUTO 3+ (NEGATIVE); NITRITE, URINE AUTO POSITIVE (NEGATIVE); PROTEIN, URINE AUTO NEGATIVE (NEGATIVE); RBC, URINE AUTO 44 /HPF (0-3); SPECIFIC GRAVITY URINE AUTO 1.012 (1.002-1.035); SQUAMOUS EPITHELIAL CELL UR AU 2 /HPF (0-6); UROBILINOGEN, URINE AUTO 0.2 mg/dL (0.0-2.0); WBC, URINE AUTO TNTC /HPF (0-3)
== END ==
LOC: M LAB 16:17
PROVIDERS: ATTEND Family Medicine
DX: R32 Unspecified urinary incontinence (principal)

== ENCOUNTER → 2020-03-24 | Outpatient (REF) | payer MEDICARE, MEDICAID ==
[2020-03-24 13:57] LABS: BASO # 0.1 10^3/uL (0.0-0.2); BASO % 0.9 % (0.0-1.0); EOS # 0.1 10^3/uL (0.0-0.5); EOS % 1.4 % (0.0-3.0); HEMATOCRIT 43.2 % (36.0-47.0); HEMOGLOBIN 14.2 g/dl (12.0-15.5); LYMPH # 1.5 10^3/uL (1.5-5.0); LYMPH % 23.5 % (24.0-44.0); MEAN CORPUSCULAR HEMOGLOBIN 28.2 pg (27.0-33.0); MEAN CORPUSCULAR HGB CONC 32.9 g/dl (32.0-36.5); MEAN CORPUSCULAR VOLUME 85.9 fl (80.0-96.0); MONO # 0.6 10^3/uL (0.0-0.8); MONO % 9.1 % (0.0-5.0); NEUTROPHILS # 4.3 10^3/uL (1.5-8.5); NEUTROPHILS % 64.8 % (36.0-66.0); PLATELET COUNT, AUTOMATED 204 10^3/uL (150-450); RED BLOOD COUNT 5.03 10^6/uL (4.00-5.40); WHITE BLOOD COUNT 6.6 10^3/uL (4.0-10.0)
[2020-03-24 14:06] LABS: ALBUMIN 3.6 GM/DL (3.2-5.2); BILIRUBIN,TOTAL 0.6 MG/DL (0.2-1.0); CALCIUM LEVEL 9.8 MG/DL (8.8-10.2); CREATININE FOR GFR 1.35 MG/DL (0.55-1.30); GLOMERULAR FILTRATION RATE 41.9 (>45); POTASSIUM SERUM 4.8 MEQ/L (3.5-5.1)
[2020-03-24 14:33] LABS: HEMOGLOBIN A1c 6.2 %
== END ==
LOC: M SFHCPLAZ 10:48
PROVIDERS: ATTEND Family Medicine
DX: R73.01 Impaired fasting glucose (principal)
CPT/HCPCS: 36415; 80053; 83036; 83525; 85025; G0463

== ENCOUNTER 2020-06-16 21:30 | Inpatient (IN) | payer MEDICARE, MEDICAID ==
[~2020-06-16] VITALS: Ht 172.7 cm; Wt 70.9 kg
[2020-06-16] MEDS ORDERED: PEGPOW PO (22:06)
[2020-06-16] MEDS ORDERED: ATIV1TAB10 PO ×2 (22:06→23:56)
[2020-06-16] MEDS ORDERED: PANC10CAEC PO (22:06)
[2020-06-16] MEDS ORDERED: SM E OTIC (22:06)
[2020-06-16] MEDS ORDERED: LEVO25TA5 PO (22:06)
[2020-06-16] MEDS ORDERED: CLAR10CA3 PO (22:06)
[2020-06-16] MEDS ORDERED: CALCCAP4 PO (22:06)
[2020-06-16] MEDS ORDERED: ROCA0.25 PO (22:06)
[2020-06-16 22:32] LABS: BASO % 0.3 % (0.0-1.0); EOS % 0.2 % (0.0-3.0); HEMATOCRIT 41.3 % (36.0-47.0); HEMOGLOBIN 14.3 g/dl (12.0-15.5); LYMPH # 0.7 10^3/uL (1.5-5.0); MEAN CORPUSCULAR HEMOGLOBIN 28.2 pg (27.0-33.0); MEAN CORPUSCULAR HGB CONC 34.6 g/dl (32.0-36.5); MEAN CORPUSCULAR VOLUME 81.5 fl (80.0-96.0); MONO # 0.6 10^3/uL (0.0-0.8); MONO % 6.8 % (0.0-5.0); NEUTROPHILS % 85.3 % (36.0-66.0); PLATELET COUNT, AUTOMATED 190 10^3/uL (150-450); RED BLOOD COUNT 5.07 10^6/uL (4.00-5.40); WHITE BLOOD COUNT 9.4 10^3/uL (4.0-10.0)
--- NOTE | 2020-06-16 22:32 | REPVR ---
PROCEDURE INFORMATION: Exam: CT Head Without Contrast Exam date and time: 06/16/2020 10:24 PM Age: 64 years old Clinical indication: Syncope and collapse TECHNIQUE: Imaging protocol: Computed tomography of the head without contrast. Radiation optimization: All CT scans at this facility use at least one of these dose optimization techniques: automated exposure control; mA and/or kV adjustment per patient size (includes targeted exams where dose is matched to clinical indication); or iterative reconstruction. COMPARISON: No relevant prior studies available. FINDINGS: Brain: Decreased attenuation of the supratentorial white matter is likely secondary to chronic microvascular ischemia. No acute intracranial hemorrhage. Ventricles: Ventricular and subarachnoid spaces are age appropriate. Bones/joints: Unremarkable. No acute fracture. Sinuses: Visualized sinuses are unremarkable. No fluid levels. Mastoid air cells: Partial opacification of the right mastoid air cells. Vasculature: Intracranial vascular calcification. Soft tissues: Unremarkable. IMPRESSION: No acute intracranial abnormality. Electronically signed by: Burke Rasheed On 06/16/2020 22:31:44 PM
--- NOTE | 2020-06-16 22:50 | REPVR ---
PROCEDURE INFORMATION: Exam: XR Chest, 1 View Exam date and time: 06/16/2020 10:10 PM Age: 64 years old Clinical indication: Other: Syncope; Additional info: Syncope/near-syncope TECHNIQUE: Imaging protocol: XR of the chest Views: 1 view. COMPARISON: CR Abdomen,Flat Upright,PA CHEST 07/29/2016 11:01 AM FINDINGS: Lungs: No consolidation. Pleural space: Unremarkable. No pleural effusion. No pneumothorax. Heart/Mediastinum: Cardiomegaly. Vasculature: Elongation of the thoracic aorta. Bones/joints: Osteopenia. IMPRESSION: No consolidation. Electronically signed by: Burke Rasheed On 06/16/2020 22:49:51 PM
[2020-06-16 23:00] LABS: BLOOD UREA NITROGEN 11 MG/DL (7-18); CALCIUM LEVEL 8.6 MG/DL (8.8-10.2); CARBON DIOXIDE LEVEL 29 MEQ/L (21-32); CHLORIDE LEVEL 88 MEQ/L (98-107); CK-MB VALUE MASS < 1.0 NG/ML (<3.6); CPK CREATINE PHOSPHOKINASE 63 U/L (26-192); CREATININE FOR GFR 1.08 MG/DL (0.55-1.30); GLOMERULAR FILTRATION RATE 54.2 (>45); GLUCOSE, FASTING 115 MG/DL (70-100); MB/CK RELATIVE INDEX 1.59 (< OR =4); POTASSIUM SERUM 3.7 MEQ/L (3.5-5.1); SODIUM LEVEL 125 MEQ/L (136-145); TROPONIN I < 0.02 NG/ML (< 0.10)
[2020-06-16 23:25] LABS: FREE T4 1.24 NG/DL (0.76-1.46)
[2020-06-16 23:29] LABS: OSMOLALITY SERUM 256 MOSM/KG (280-301)
[2020-06-16] MEDS ORDERED: LORA-436 PO (23:56)
[2020-06-16] MEDS ORDERED: DEBR6.5S4 AU (23:56)
[2020-06-16] MEDS ORDERED: VITMTA PO (23:56)
[2020-06-16] MEDS ORDERED: LACT10SO3 PO (23:56)
[2020-06-16] MEDS ORDERED: CALC1TAB74 PO (23:56)
[2020-06-16] MEDS ORDERED: OMEP-221 PO (23:56)
[2020-06-16] MEDS ORDERED: CALC1CAP31 PO (23:56)
[2020-06-16] MEDS ORDERED: SYNT25TA PO (23:56)
[2020-06-16] MEDS ORDERED: [UNRECOGNIZED DRUG - CODE] EXT (23:56)
[2020-06-16] MEDS ORDERED: ZENP1CAP PO (23:56)
[2020-06-16] MEDS ORDERED: SIMV20TA22 PO (23:56)
[2020-06-16] MEDS ORDERED: MIRA1POW3 PO (23:56)
[2020-06-17 03:41] LABS: CK-MB VALUE MASS < 1.0 NG/ML (<3.6); CPK CREATINE PHOSPHOKINASE 54 U/L (26-192); MB/CK RELATIVE INDEX 1.85 (< OR =4); TROPONIN I < 0.02 NG/ML (< 0.10)
--- NOTE | 2020-06-17 04:42 | IPNPDOC ---
Text Note Date of Service The patient was seen on 06/17/20. NOTE TIME OF SERVICE 610 AM is a 64 yr old w a hx of intellectual disability, pancreatic insufficiency 2/2 multiple episodes of pancreatitis, hypothyroidism, CKD3, neurogenic bladder & vertebral fx who was sent from [facility] for evaluation after passing out for 3-4 min. 1 Syncope Plan: admit to medical floor / telemetry f/u serial trops / day time team to consider EEG 2 Acute on chronic hyponatremia Uosmo, Milagros and serum osmol reviewed TSH wnl Since she is euvolemic and not taking any meds that cause hyponatremia suspect this may be due to SIADH or psychogenic polydipsia Plan: f/u serum cortisol / since it is not clear if she is symptomatic will consult Nephro for guidance on correction HPOA Bhavik Hood brother [phone] rest per 's note VS,Fishbone, I+O VS, Fishbone, I+O Laboratory Tests 06/16/20 22:18 Vital Signs Date Time Temp Pulse Resp B/P (MAP) Pulse Ox O2 Delivery O2 Flow Rate FiO2 06/16/20 21:35 96.8 62 18 153/74 (100) 98 Room Air JOSE F BURROUGHS MD Jun 17, 2020 04:42
[2020-06-17 05:32] LABS: MAGNESIUM LEVEL 1.9 MG/DL (1.8-2.4); PHOSPHORUS LEVEL 3.1 MG/DL (2.5-4.9)
--- NOTE | 2020-06-17 06:03 | HPEPDOC ---
General Date of Admission Jun 17, 2020 at 04:07 Date of Service: Jun 17, 2020 Chief Complaint The patient is a 64-year-old female admitted with a reason for visit of Syncope, Hyponatremia. Source: [facility] Caregiver/Aid Exam Limitations: Clinical conditions Severity: Moderate, Severe Associated Symptoms: Vomiting, Syncope History of Present Illness Patient is a 64 yo female with PMH of hyperlipedmiea, CKD stage 3, and GERD presented to [facility] due to syncope episode 06/16/2020 AM lasting for a few minutes when [facility] staff was feeding patient and noted patient's eye rolled back and forth. No fall was reported with involuntary limb movement or foaming of the mouth. Patient was sitting on the chair when the event happened. It was noted that prior to the syncope event, patient had loose BM and had 1 episode of emes is. She wears adult diaper/pull up usually and EMS arrived shortly thus it was difficult to tell whether pt has loss of BM/urinary event per report. No change of recent medication per report. Patient has mild MR but is able to answer name at baseline. Patient is able to follow [facility] staff' simple commands in ER and is able to move 4 extremities but very difficult to evaluate as she is not following commands consistently. Patient is noted to be more quietcompared to usual and per staff she is more quiet around people she is not familiar with, but but noted to make a comment about time earlier in the exam room per [facility] staff. It was noted that patient did not specifically voiced any chest pain, p alpitation, or dyspnea. Patient denied abdominal pain when being asked but was not answering further questions just smiling. Home Medications Scheduled Calcitriol (Calcitriol) 0.25 Mcg Capsule, 0.25 MCG PO DAILY, (Reported) Calcium Carbonate/Vitamin D3 (Calcium 600-Vit D3 400 Tablet) 1 Each Tablet, 1 TAB PO BID, (Reported) Carbamide Peroxide (Debrox) 15 Ml Drops, 5 DROP AU 1XWK, (Reported) SATURDAY AT [facility] [place] (Darian-Gel Tar) 118 Ml Shampoo, 1 DOSE EXT 2XW, (Reported) SATURDAY AND SATURDAY Lactulose (Lactulose) 10 Gm/15 Ml Solution, 30 ML PO QPM, (Reported) TAKES AT 1600 Levothyroxine Sodium (Synthroid) 25 Mcg Tablet, 25 MCG PO DAILY, (Reported) Lipase/Protease/Amylase (Zenpep Dr 10,000 Unit Capsule) 1 Each Capsule.dr, 1 CAP PO WMHS, (Reported) QAM, 1200, 1600, QHS Loratadine (Loratadine) 10 Mg Tablet, 10 MG PO QHS, (Reported) Lorazepam (Ativan) 0.5 Mg Tablet, 0.5 MG PO BID, (Reported) Multivitamins (Thera M Plus Tablet) 1 Each Tablet, 1 TAB PO DAILY, (Reported) Omeprazole (Omeprazole) 40 Mg Capsule.dr, 40 MG PO BID, (Reported) Polyethylene Glycol 3350 (Miralax) 17 Gm Powd.pack, 17 GM PO QPM, (Reported) TAKES AT 1600 Simvastatin (Simvastatin) 20 Mg Tablet, 20 MG PO QHS, (Reported) Allergies Coded Allergies: ibuprofen (Verified Adverse Reaction, Intermediate, Hx of PANCREATITIS, 06/16/20) codeine (Verified Adverse Reaction, Mild, GI, 06/16/20) Past Medical History Medical History Impaired fasting glucose CKD stage 3 Hx of recurrent nausea/vomiting probably behavioral per record Hx of Pancreatitis w/ secondary pancreatic insufficiency GERD Chronic constipation DJD LS spine Seborrheic dermatitis Hyperlipidemia 2B B/l venous insufficiency Allergic rhinitis/conjunctivitis Scalp psoriasis Mild mental retardation B/l sensorineural hearing loss Vitamin D deficiency Neurogenic b/adder c ho retention/incontinence/recurrent UTI Social History * Smoker: Denies A-FIB/CHADSVASC A-FIB History Current/History of A-Fib/PAF?: No Review of Systems Constitutional: Reports: Other (Limited ROS obtainable d/t patient clinical condition); Denies: Chills, Fever Gastrointestinal: Reports: Vomiting, Diarrhea; Denies: Abdominal Pain Genitourinary: Reports: Other Symptoms (Chronic adult pullup/diaper use) Neurological: Reports: Other Symptoms (Syncope) Psych: Reports: Other Psych (Hx hf mild MR) Physical Examination General Exam: Positive: Alert, No Acute Distress Eye Exam: Positive: Conjunctiva & lids normal, Other Eye Symptoms (Pupil equal and round b/l. No facial droop b/l. ); Negative: Sclera icteric ENT Exam: Positive: Atraumatic, Mucous membr. moist/pink Neck Exam: Positive: Supple Chest Exam: Positive: Clear to auscultation, Normal air movement; Negative: Rales, Rhonchi, Wheezing Heart Exam: Positive: Rate Normal, Regular Rhythm, Normal S1, Normal S2; Negative: Murmurs Abdomen Exam: Positive: Normal bowel sounds, Soft Extremity Exam: Negative: Edema, Swelling Neuro Exam: Positive: Normal Tone, Other (Facial nerve 3, 4, 6, 7, 8, 12 grossly intact but difficult to access as pt not following commands consist ently. Moving all 4 extremities when being asked to); Negative: Normal Speech Psych Exam: Positive: Mood NL; Negative: Memory Intact, Oriented x 3 Vital Signs Vital Signs Date Time Temp Pulse Resp B/P (MAP) Pulse Ox O2 Delivery O2 Flow Rate FiO2 06/16/20 21:35 96.8 62 18 153/74 (100) 98 Room Air Laboratory Data Labs 24H Laboratory Tests 2 06/16/20 22:18: Immature Granulocyte % (Auto) 0.4, Neutrophils (%) (Auto) 85.3H, Lymphocytes (%) (Auto) 7.0L, Monocytes (%) (Auto) 6.8H, Eosinophils (%) (Auto) 0.2, Basophils (%) (Auto) 0.3, Neutrophils # (Auto) 8.0, Lymphocytes # (Auto) 0.7L, Monocytes # (Auto) 0.6, Eosinophils # (Auto) 0.0, Basophils # (Auto) 0.0, Nucleated Red Blood Cells % (auto) 0.0, Anion Gap 8, Glomerular Filtration Rate 54.2, Osmolality 256L, Calcium Level 8.6L, Total Creatine Kinase 63, Creatine Kinase MB < 1.0, Creatine Kinase MB Relative Index 1.59, Troponin I < 0.02, Thyroid Stimulating Hormone (TSH) 1.540, Free Thyroxine 1.24 06/16/20 23:28: Urine Random Osmolality 512, Urine Random Creatinine 182.0, Urine Random Sodium 40 06/17/20 03:00: Total Creatine Kinase 54, Creatine Kinase MB < 1.0, Creatine Kinase MB Relative Index 1.85, Troponin I < 0.02 CBC/BMP Laboratory Tests 06/16/20 22:18 Assessment/Plan 1. Syncope likely 2/2 symptomatic hyponatremia. Ns=427. Nephrology consult ordered for further assist for symptomatic hyponatremia for possible hypertonic saline. Fluid restriction. BMP Q6H, seizure precaution, fall precaution, PT/OT. Carotid US/ Echo to r/o other causes of syncope although less likely. Pt will be on tele for syncope. Orthostatic vitals. Neuro check and vitals Q4H. Ct head showed no acute intracranial abnormality. Consider MRI/MRA head in AM if would like to r/o stroke 2. Euvolemic, hypo-osmotic hyponatremia, acute on chronic. Strict I&O, weigh daily. Urine osmo>100, etiology likely 2/2 SIADH, hypothyroidism, adrenal insuffiency. AM cortisol pending. TSH and free T4 wnl. BMP Q6H. FLuid restriction and nephro consult for possible hypertonic saline tx. Fall precaution/seizure precaution/neuro checks. 3. GERD. Cont home med Omeprazole 4. Chronic pancreatic insufficiency. May use home med Zanpep 5. Hypothyroidism. Cont home med levothyroxine. Thyroid panel wnl. 6. Hyperlipidemia. Cont home med statin 7. Vitamin D deficiency. Cont home med Calcitrol DVT prophylaxis: SCD/TEDS/lovenox Plan / VTE VTE Prophylaxis Ordered?: Yes CRYSTAL JOHNSON DO Jun 17, 2020 06:03
[2020-06-17] MEDS: LEVOTHYROXINE 25MCG TABLET (0.025MG) PO SCH (06:10)
[2020-06-17 09:47] LABS: HEMATOCRIT 44.2 % (36.0-47.0); MEAN CORPUSCULAR HGB CONC 33.9 g/dl (32.0-36.5); MEAN CORPUSCULAR VOLUME 82.6 fl (80.0-96.0); PLATELET COUNT, AUTOMATED 195 10^3/uL (150-450); RED BLOOD COUNT 5.35 10^6/uL (4.00-5.40); WHITE BLOOD COUNT 11.4 10^3/uL (4.0-10.0)
[2020-06-17 09:58] LABS: CALCIUM LEVEL 9.3 MG/DL (8.8-10.2); CREATININE FOR GFR 1.22 MG/DL (0.55-1.30); GLOMERULAR FILTRATION RATE 47.1 (>45)
[2020-06-17] MEDS: LORazepam 0.5 MG TAB PO SCH ×2 (09:58→21:17)
[2020-06-17] MEDS: OMEPRAZOLE 20 MG CAP PO SCH ×2 (09:58→21:17)
[2020-06-17] MEDS: CALCITRIOL 0.25 MCG CAP (S0169) PO SCH (09:58)
[2020-06-17] MEDS: MULTIVITAMINS/MINERALS THERAP 1 TAB PO SCH (09:58)
[2020-06-17 10:28] LABS: CORTISOL AM 16.9 UG/DL (4.3-22.4)
[2020-06-17] MEDS ORDERED: FUROSEMIDE 20 MG TAB PO SCH (11:30)
[2020-06-17] MEDS ORDERED: SODIUM CHLORIDE 1 GM TAB PO SCH (11:30)
[2020-06-17] MEDS: PANCRELIPASE PO SCH ×3 (12:30→21:17)
[2020-06-17 13:16] LABS: CALCIUM LEVEL 8.8 MG/DL (8.8-10.2); CREATININE FOR GFR 1.09 MG/DL (0.55-1.30); GLOMERULAR FILTRATION RATE 53.6 (>45); POTASSIUM SERUM 3.8 MEQ/L (3.5-5.1)
--- NOTE | 2020-06-17 14:52 | IPNPDOC ---
Text Note Date of Service The patient was seen on 06/17/20. NOTE Patient was seen and examined by me. occasional caregiver at the bed side. No overnight events PHYSICAL EXAMINATION: General: directable, Alert but not communicating ( baseline sometimes as she has MR) HEENT: Atraumatic, PERRLA CVS: normal rhythm Lungs: Good air entry bilaterally, No appreciable wheezing / rales / rhonchi Abdomen: Soft, Non-distended, Non-tender Extremities: No extremity swelling, limbs intact Skin: Warm Neoro. No focal deficits noted. Assessment/Plan Patient is a 64 yo female with PMH of hyperlipedmiea, CKD stage 3, and GERD presented to [facility] due to brief episode of blanking out and for a few minutes when [facility] staff was feeding patient and noted patient's eye rolled back and forth. No fall was reported with involuntary limb movement or foaming of the mouth. Patient was sitting on the chair when the event happened but it was noted that prior to the syncope event, patient had loose BM and had 1 episode of emesis. She wears adult diaper/pull up usually and EMS arrived shortly thus it was difficult to tell whether pt has loss of BM/urinary event per report. No change of recent medication per report. Patient has mild MR but is able to answer name at baseline and is very hard of hearing. This morning the pet care associate reported that, few days back she had two days of diarrhea 3-4 episodes a day and she has not been eating weel and just been drinking good amount of water. Her hyoNa is likely has component of both dehydration and low solute intake. 1. Seizure?/ AMS due to symptomatic hyponatremia. Na- 125. Most likely euvolumic hypona due to low solute intake with normal water intake. Urine Osms and Urine Na also pionting towards the same etiology of both extrarenal Na/Fluid loss in combination with low solute intake and free water intake. Will satrt the patinet on 75cc NS and give 500 cc bolus. Monitor Na every 6 hours and probable correction 6-8 meq in [address] head showed no acute intracranial abnormality. Will keep on seizure precautions . No indication of starting anti seizure medications. 2. Chronic pancreatic insufficiency. May use home med Zanpep 3. Hypothyroidism. Cont home med levothyroxine. Thyroid panel wnl. 4. Hyperlipidemia. Cont home med statin 5. Vitamin D deficiency. Cont home med Calcitrol DVT prophylaxis: SCD/TEDS/lovenox Disposition : Back to [facility] in 24 to 48 hours VS,Claudia, I+O VS, Jonhbone, I+O Laboratory Tests 06/16/20 22:18 06/17/20 09:24 06/17/20 12:29 Vital Signs Date Time Temp Pulse Resp B/P (MAP) Pulse Ox O2 Delivery O2 Flow Rate FiO2 06/17/20 11:51 98.0 66 18 148/61 (90) 97 Room Air SCOT CROCKETT MD Jun 17, 2020 14:52
[2020-06-17] MEDS ORDERED: NS 500 ML IV ONE (15:15)
[2020-06-17] MEDS: NS 1,000 ML IV SCH (16:04)
[2020-06-17 16:25] LABS: HEMATOCRIT 37.3 % (36.0-47.0); MEAN CORPUSCULAR HEMOGLOBIN 28.2 pg (27.0-33.0); MEAN CORPUSCULAR HGB CONC 34.3 g/dl (32.0-36.5); MEAN CORPUSCULAR VOLUME 82.2 fl (80.0-96.0); PLATELET COUNT, AUTOMATED 168 10^3/uL (150-450); RED BLOOD COUNT 4.54 10^6/uL (4.00-5.40); WHITE BLOOD COUNT 11.3 10^3/uL (4.0-10.0)
[2020-06-17 16:33] LABS: HEMOGLOBIN 12.8 g/dl (12.0-15.5)
[2020-06-17 16:43] LABS: CALCIUM LEVEL 8.5 MG/DL (8.8-10.2); CREATININE FOR GFR 1.08 MG/DL (0.55-1.30); GLOMERULAR FILTRATION RATE 54.2 (>45); POTASSIUM SERUM 3.9 MEQ/L (3.5-5.1)
[2020-06-17 20:31] LABS: CALCIUM LEVEL 8.3 MG/DL (8.8-10.2); CREATININE FOR GFR 1.17 MG/DL (0.55-1.30); GLOMERULAR FILTRATION RATE 49.4 (>45); POTASSIUM SERUM 3.8 MEQ/L (3.5-5.1)
[2020-06-17] MEDS: SIMVASTATIN 20 MG TAB PO SCH (21:17)
[2020-06-17] MEDS: LORATADINE 10 MG TAB PO SCH (21:17)
[2020-06-17 22:00] VITALS: BP 143/80
[2020-06-17] MEDS ORDERED: NS 250 ML IV ONE (22:00)
[2020-06-17 23:35] LABS: GLOMERULAR FILTRATION RATE 59.2 (>45); POTASSIUM SERUM 3.5 MEQ/L (3.5-5.1)
[2020-06-18 01:35] VITALS: BP 146/99
[2020-06-18] MEDS: NS 1,000 ML IV SCH ×2 (04:21→17:58)
[2020-06-18 04:38] VITALS: BP 131/76
[2020-06-18] MEDS: LEVOTHYROXINE 25MCG TABLET (0.025MG) PO SCH (05:44)
[2020-06-18 06:00] VITALS: BP 127/77
[2020-06-18 06:19] LABS: HEMATOCRIT 39.1 % (36.0-47.0); HEMOGLOBIN 13.3 g/dl (12.0-15.5); MEAN CORPUSCULAR HEMOGLOBIN 27.9 pg (27.0-33.0); MEAN CORPUSCULAR VOLUME 82.1 fl (80.0-96.0); PLATELET COUNT, AUTOMATED 165 10^3/uL (150-450); RED BLOOD COUNT 4.76 10^6/uL (4.00-5.40)
[2020-06-18 06:22] VITALS: BP 131/77
[2020-06-18 06:42] LABS: BLOOD UREA NITROGEN 14 MG/DL (7-18); CARBON DIOXIDE LEVEL 29 MEQ/L (21-32); CHLORIDE LEVEL 91 MEQ/L (98-107); CREATININE FOR GFR 0.98 MG/DL (0.55-1.30); GLOMERULAR FILTRATION RATE > 60.0 (>45); GLUCOSE, FASTING 92 MG/DL (70-100); POTASSIUM SERUM 3.7 MEQ/L (3.5-5.1); SODIUM LEVEL 125 MEQ/L (136-145)
--- NOTE | 2020-06-18 07:44 | CR ---
DATE OF CONSULTATION: 06/17/2020 REQUESTING PHYSICIAN: Dr. Vicky Garcia. REASON FOR CONSULTATION: Management of hyponatremia. CHIEF COMPLAINT: Patient was brought to the Emergency Room because of syncope. NOTE: History was obtained from patient's chart and from the medical team. Patient is unable to provide any reliable history. HISTORY OF PRESENT ILLNESS: Hannah Hood is a 64-year-old female with a past medical history of chronic kidney disease stage 3 as baseline. She is a resident of [facility] [[email or web address] She was brought into the Emergency Room yesterday due to syncope. There was no seizure activity noted. There is also documentation that patient was having diarrhea for the last few days, and she was only water and was not eating much. When patient arrived in the Emergency Room, she was found to have a sodium of 125. Nephrology service was called for further help in the management of this patient. I saw and evaluated the patient today morning at the bedside. Patient did not provide any review of systems or history to myself when I examined her. PAST MEDICAL HISTORY: Chronic kidney disease stage 3; best baseline creatinine of around 1.2, history of mental disorder, history of recurrent nausea and vomiting in the past, gastroesophageal reflux disease, mental retardation, history of neurogenic in the past. PAST SURGICAL HISTORY: No significant past surgical history known. ALLERGIES: He is allergic to codeine and Ibuprofen. FAMILY HISTORY: No family history known at this time. SOCIAL HISTORY: Patient is a resident of [facility] [[email or web address] REVIEW OF SYSTEMS: She was unable to give me any reliable review of systems. As per [facility] [[email or web address] staff, patient was having diarrhea recently. PHYSICAL EXAMINATION: GENERAL: Patient is awake, lying in bed, no apparent distress, not interested in communication. VITALS: Temperature 98 degrees Fahrenheit, blood pressure 148/61, pulse 66, respiratory rate 18, saturation 97% on room air. HEAD AND NECK: Extraocular muscles intact. Pupils equally round and reactive to light. Mucous membranes are moist. Neck is supple. There is no JVD. CARDIOVASCULAR: S1, S2, regular rate. No edema of the bilateral lower extremities. RESPIRATORY: Chest is clear to auscultation bilaterally. Bilateral equal air entry. No rales or rhonchi. ABDOMEN: Soft. Positive bowel sounds. Nontender. No organomegaly. MUSCULOSKELETAL: No clubbing or cyanosis. Pulses are 2+. FACULTY I ON CALL MEDICAL ASSISTANT: No focal deficit. Patient moves her extremities. PSYCH: Patient is nonverbal. She follows few commands and is not interested in communication. LABORATORY REVIEW: CBC showed WBC 11.3, hemoglobin 12.8, platelets 168,000. Urine study showed urine osmolality of 512, random creatinine of 192 and sodium was 40. BMP on arrival showed sodium 125, potassium 3.7, chloride 88, bicarb 29, BUN 11, creatinine 1.08. Osmolality was 256. TSH 1.5, free T4 1.24. Cortisol a.m. level 16.9. Repeat serum sodium in the morning was again 125. CURRENT INPATIENT MEDICATIONS: Patient's medications were all reviewed by myself. She is on Calcitriol 0.25 mcg p.o. daily, Levothyroxine 25 mcg p.o. daily, Ativan p.r.n., multivitamin one tablet p.o. daily, Omeprazole 40 mg p.o. twice a day, Simvastatin 20 mg p.o. q.h.s. ASSESSMENT: A 64-year-old female, who is a resident of [facility], admitted this time with syncope and hyponatremia. PLAN: 1. Hyponatremia: Patient has hypo-osmolar hyponatremia. This clinically looks euvolemic with high urine osmolality and high urine sodium. Clinically looks like SIADH, but I was told by the medical team that the patient was having diarrhea and was drinking only water. Initially plan was to give the patient Lasix and salt tablet, however after listening to the history, plan was changed and patient was started on normal saline. With normal saline hydration, sodium is coming up slowly. Okay to continue normal saline at 75 cc an hour for now. 2. Secondary hyperparathyroidism: Continue current dose of Calcitriol 0.25 mcg p.o. daily. 3. Chronic kidney disease stage 3: Patient's renal function is stable and at baseline. 4. Hypothyroidism: Continue home dose of Levothyroxine. MTDD
[2020-06-18] MEDS: PANCRELIPASE PO SCH ×4 (09:30→20:14)
[2020-06-18] MEDS: CALCITRIOL 0.25 MCG CAP (S0169) PO SCH (09:30)
[2020-06-18] MEDS: OMEPRAZOLE 20 MG CAP PO SCH ×2 (09:30→20:13)
[2020-06-18] MEDS: MULTIVITAMINS/MINERALS THERAP 1 TAB PO SCH (09:30)
[2020-06-18] MEDS: LORazepam 0.5 MG TAB PO SCH ×2 (09:30→20:13)
[2020-06-18 12:51] LABS: URIC ACID 3.6 MG/DL (2.6-6.0)
[2020-06-18 14:00] VITALS: BP 135/81
[2020-06-18] MEDS: LORATADINE 10 MG TAB PO SCH (20:13)
[2020-06-18] MEDS: SIMVASTATIN 20 MG TAB PO SCH (20:13)
[2020-06-18 22:00] VITALS: BP 150/81
[2020-06-19 06:00] VITALS: BP 141/75
[2020-06-19] MEDS: LEVOTHYROXINE 25MCG TABLET (0.025MG) PO SCH (06:08)
[2020-06-19 06:25] LABS: HEMATOCRIT 39.8 % (36.0-47.0); HEMOGLOBIN 13.7 g/dl (12.0-15.5); MEAN CORPUSCULAR HEMOGLOBIN 28.4 pg (27.0-33.0); MEAN CORPUSCULAR HGB CONC 34.4 g/dl (32.0-36.5); MEAN CORPUSCULAR VOLUME 82.4 fl (80.0-96.0); PLATELET COUNT, AUTOMATED 183 10^3/uL (150-450); RED BLOOD COUNT 4.83 10^6/uL (4.00-5.40); WHITE BLOOD COUNT 8.7 10^3/uL (4.0-10.0)
[2020-06-19 06:46] LABS: BLOOD UREA NITROGEN 10 MG/DL (7-18); CALCIUM LEVEL 8.6 MG/DL (8.8-10.2); CARBON DIOXIDE LEVEL 32 MEQ/L (21-32); CHLORIDE LEVEL 96 MEQ/L (98-107); CREATININE FOR GFR 0.92 MG/DL (0.55-1.30); GLOMERULAR FILTRATION RATE > 60.0 (>45); GLUCOSE, FASTING 101 MG/DL (70-100); POTASSIUM SERUM 3.9 MEQ/L (3.5-5.1); SODIUM LEVEL 129 MEQ/L (136-145)
[2020-06-19] MEDS: CALCITRIOL 0.25 MCG CAP (S0169) PO SCH (08:31)
[2020-06-19] MEDS: OMEPRAZOLE 20 MG CAP PO SCH ×3 (08:31→21:00)
[2020-06-19] MEDS: LORazepam 0.5 MG TAB PO SCH ×3 (08:31→21:00)
[2020-06-19] MEDS: MULTIVITAMINS/MINERALS THERAP 1 TAB PO SCH (08:31)
[2020-06-19] MEDS: NS 1,000 ML IV SCH ×2 (08:31→20:24)
[2020-06-19] MEDS: PANCRELIPASE PO SCH ×5 (08:32→21:00)
[2020-06-19 14:00] VITALS: BP 139/74
--- NOTE | 2020-06-19 17:08 | IPN ---
DATE: 06/18/2020 SUBJECTIVE: Ms. Hood is seen this morning at her bedside. She is a [facility] resident with cognitive deficit and not able to provide much reliable information. Her breakfast tray is still on the bedside and it seems that she ate pretty good. She has been drinking and eating and tolerating her diet well. She is also receiving I.V. normal saline at 75 mL per hour. PHYSICAL EXAMINATION: VITALS: Temperature 98.5 degrees Fahrenheit, heart rate 72 per minute, respiratory rate 16 per minute, blood pressure 131/77 mmHg, oxygen saturation 94% on room air. HEENT: Head atraumatic. There is no oral thrush or ulcers. NECK: Supple and without JVD or thyroid enlargement. HEART: Heart sounds are regular. LUNGS: Sound clear to auscultation bilaterally. ABDOMEN: Soft and nontender. Bowel sounds are normal. EXTREMITIES: Without any cyanosis or clubbing. NEUROLOGIC: She is awake and talking, but not able to provide any reliable information due to her mental retardation. She is moving all her extremities. LABORATORY DATA: Today labs: WBC 9.0, hemoglobin 13.3, hematocrit 39.1, platelets 165,000. Sodium still 125, potassium 3.7, chloride 91, CO2 29, BUN 14, creatinine 0.98. Calcium 8.0. PROBLEMS: Hyponatremia: Patient did have a urine sodium of 40 on June 16 and she has been receiving I.V. normal saline without any change in her sodium level over the last 24 hours. She is eating well and her oral intake is now adequate. 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 Her primary team felt that she had oral intake and some GI problems, which may have contributed to her hyponatremia. We will wait for another 24 hours as her sodium level is essentially unchanged and see if the normal saline makes any difference. I am going to recheck her electrolytes tomorrow morning and if her sodium is not improved, then we will consider stopping her normal saline and treat her with oral sodium chloride and Lasix with oral fluid restriction. Unfortunately, she is not able to restrict her fluid intake due to her significant mental retardation. Her potassium level is still reasonably normal and renal function is also normal. No other issues are being addressed by the nephrology service at this time. ROLANDO
[2020-06-19] MEDS: SIMVASTATIN 20 MG TAB PO SCH ×2 (20:24→21:00)
[2020-06-19] MEDS: LORATADINE 10 MG TAB PO SCH ×2 (20:24→21:00)
[2020-06-19 22:00] VITALS: BP 146/88
[2020-06-19] MEDS ORDERED: KETOROLAC TROMETHAMINE 10 MG TAB PO ONE (23:45)
[2020-06-20] VITALS (7 sets, daily range): BP systolic 138–170; BP diastolic 61–84
[2020-06-20] MEDS ORDERED: KETOROLAC 30 MG/ML 1ML VIAL IV ONE
[2020-06-20 05:14] LABS: HEMATOCRIT 35.4 % (36.0-47.0); HEMOGLOBIN 11.8 g/dl (12.0-15.5); MEAN CORPUSCULAR HEMOGLOBIN 27.7 pg (27.0-33.0); MEAN CORPUSCULAR HGB CONC 33.3 g/dl (32.0-36.5); MEAN CORPUSCULAR VOLUME 83.1 fl (80.0-96.0); PLATELET COUNT, AUTOMATED 171 10^3/uL (150-450); RED BLOOD COUNT 4.26 10^6/uL (4.00-5.40); WHITE BLOOD COUNT 9.9 10^3/uL (4.0-10.0)
[2020-06-20 05:32] LABS: MAGNESIUM LEVEL 1.7 MG/DL (1.8-2.4); POTASSIUM SERUM 3.5 MEQ/L (3.5-5.1)
[2020-06-20] MEDS: LEVOTHYROXINE 25MCG TABLET (0.025MG) PO SCH ×2 (05:45→05:50)
[2020-06-20 08:04] LABS: CALCIUM LEVEL 8.1 MG/DL (8.8-10.2); CREATININE FOR GFR 1.07 MG/DL (0.55-1.30); GLOMERULAR FILTRATION RATE 54.8 (>45)
[2020-06-20] MEDS: LORazepam 0.5 MG TAB PO SCH ×2 (08:39→21:59)
[2020-06-20] MEDS: OMEPRAZOLE 20 MG CAP PO SCH ×2 (08:39→21:58)
[2020-06-20] MEDS: PANCRELIPASE PO SCH ×4 (08:39→21:59)
[2020-06-20] MEDS: CALCITRIOL 0.25 MCG CAP (S0169) PO SCH (08:39)
[2020-06-20] MEDS: MULTIVITAMINS/MINERALS THERAP 1 TAB PO SCH (08:39)
[2020-06-20] MEDS ORDERED: POTASSIUM CHLORIDE 10 MEQ SR TABLET PO ONE (09:30)
--- NOTE | 2020-06-20 13:02 | IPNPDOC ---
Text Note Date of Service The patient was seen on 06/20/20. NOTE Pt does not respond to questioning today. This apparently is consistent with baseline. ROS unobtainable. PHYSICAL EXAMINATION: General: Alert but not communicating (apparently baseline sometimes as she has MR) HEENT: Atraumatic, PERRLA CVS: normal rhythm Lungs: CTAB, No appreciable wheezing / rales / rhonchi Abdomen: Soft, Non-distended, Non-tender Extremities: No extremity swelling, limbs intact Skin: Warm Neoro. No focal deficits noted. Assessment/Plan Patient is a 64 yo female with PMH of hyperlipedmiea, CKD stage 3, and GERD presented to [facility] due to brief syncopal event. Found to be severely hyponatremic upon admission. 1. Seizure?/ AMS due to symptomatic hyponatremia. Na had been slowly improving, but plateaued this morning. Nephrology has been consulted, their input is greatly appreciated. Management per their recommendations. 2. Chronic pancreatic insufficiency. May use home med Zanpep 3. Hypothyroidism. Cont home med levothyroxine. Thyroid panel wnl. 4. Hyperlipidemia. Cont home med statin 5. Vitamin D deficiency. Cont home med Calcitrol DVT prophylaxis: SCD/TEDS/lovenox Disposition : Back to [facility] when Na is improved VS,Jonhbone, I+O VS, Jonhbone, I+O Laboratory Tests 06/20/20 04:54 Vital Signs Date Time Temp Pulse Resp B/P (MAP) Pulse Ox O2 Delivery O2 Flow Rate FiO2 06/20/20 10:00 98.4 87 16 159/83 (108) 96 Room Air I&O- Last 24 Hours up to 6 AM 06/20/20 06:00 Intake Total 3160 ml Output Total 0 ml Balance 3160 ml JOSEY FOLEY DO Jun 20, 2020 13:02
[2020-06-20] MEDS: ACETAMINOPHEN TAB 650MG DOSE (2X325MG) PO PRN (18:42)
[2020-06-20] MEDS: SIMVASTATIN 20 MG TAB PO SCH (21:59)
[2020-06-20] MEDS: LORATADINE 10 MG TAB PO SCH (21:59)
[2020-06-21 02:00] VITALS: BP 148/82
[2020-06-21] MEDS: ACETAMINOPHEN TAB 650MG DOSE (2X325MG) PO PRN ×3 (02:37→16:33)
[2020-06-21] MEDS: LEVOTHYROXINE 25MCG TABLET (0.025MG) PO SCH (05:28)
[2020-06-21 05:52] LABS: HEMATOCRIT 35.8 % (36.0-47.0); HEMOGLOBIN 12.3 g/dl (12.0-15.5); MEAN CORPUSCULAR HEMOGLOBIN 27.9 pg (27.0-33.0); MEAN CORPUSCULAR HGB CONC 34.4 g/dl (32.0-36.5); MEAN CORPUSCULAR VOLUME 81.2 fl (80.0-96.0); PLATELET COUNT, AUTOMATED 170 10^3/uL (150-450); RED BLOOD COUNT 4.41 10^6/uL (4.00-5.40)
[2020-06-21 06:00] VITALS: BP 145/73
[2020-06-21 07:44] LABS: BLOOD UREA NITROGEN 12 MG/DL (7-18); CALCIUM LEVEL 8.3 MG/DL (8.8-10.2); CARBON DIOXIDE LEVEL 28 MEQ/L (21-32); CHLORIDE LEVEL 92 MEQ/L (98-107); CREATININE FOR GFR 0.83 MG/DL (0.55-1.30); GLOMERULAR FILTRATION RATE > 60.0 (>45); GLUCOSE, FASTING 96 MG/DL (70-100); POTASSIUM SERUM 3.8 MEQ/L (3.5-5.1); SODIUM LEVEL 125 MEQ/L (136-145)
--- NOTE | 2020-06-21 08:49 | IPN ---
DATE: 06/19/2020 Ms. Hood is seen this morning at her bedside. She was sleeping and I woke her up. She denies any complaints. She has been receiving IV fluids at 75 mL/hr. Nursing staff reports not new issues. She has been eating well. On physical examination, temperature 97.9 degrees Fahrenheit, heart rate 80 per minute and respiratory rate 18 per minute. Blood pressure 141/75 mmHg and oxygen saturation 97% on room air. Head is atraumatic. Neck supple and without JVD. Heart sounds regular and lungs clear to auscultation. Abdomen soft and nontender, and bowel sounds are normal. Extremities without any cyanosis or clubbing. Neurologically, she has no focal deficit and remains at her baseline mentation with some chronic mental retardation. Today's labs showed WBC count 8.7, hemoglobin 13.7 and hematocrit 39.8. Sodium is up to 129, potassium 3.9, BUN 10 and creatinine 0.92. Glucose 101 and calcium 8.6. PROBLEMS: Hyponatremia. Sodium level is gradually improving and she remains on IV normal saline at 75 mL/hr. We will continue with the same and recheck her electrolytes tomorrow morning. Her volume status is still well compensated. She is currently not receiving any diuretic. All other issues are stable and we will continue to monitor her electrolytes on a daily basis. IMANID
[2020-06-21] MEDS: PANCRELIPASE PO SCH ×4 (09:48→20:44)
[2020-06-21] MEDS: MULTIVITAMINS/MINERALS THERAP 1 TAB PO SCH (09:49)
[2020-06-21] MEDS: CALCITRIOL 0.25 MCG CAP (S0169) PO SCH (09:49)
[2020-06-21] MEDS: LORazepam 0.5 MG TAB PO SCH ×2 (09:49→20:44)
[2020-06-21] MEDS: OMEPRAZOLE 20 MG CAP PO SCH ×2 (09:50→20:44)
[2020-06-21 10:00] VITALS: BP 164/88
[2020-06-21] MEDS ORDERED: FUROSEMIDE 20 MG TAB PO ONE (12:00)
[2020-06-21] MEDS ORDERED: LACTULOSE 20 GM/30 ML SYRUP UD PO PRN (12:30)
[2020-06-21] MEDS ORDERED: MIRALAX *UNIT DOSE* 17GM PACKET PO PRN (12:30)
--- NOTE | 2020-06-21 13:15 | IPN ---
DATE: 06/20/2020 SUBJECTIVE: Ms. Hood is seen this morning at her bedside. A [facility] staff member is present at the bedside today and feeding her breakfast. Patient is mostly nonverbal but she does communicate. She is not in any acute distress. PHYSICAL EXAMINATION: VITAL SIGNS: Temperature 98.4 degrees Fahrenheit, heart rate is 88 per minute and respiratory rate is 16 per minute. Blood pressure 159/83 mmHg and oxygen saturation is 96%. HEAD: Atraumatic. NECK: Supple without JVD or thyroid enlargement. HEART: Heart sounds are regular. LUNGS: Clear to auscultation. ABDOMEN: Soft and nontender. Bowel sounds are normal. EXTREMITIES: Without any cyanosis or clubbing. LABORATORY DATA: Todays labs showed sodium of 128, potassium 3.5, BUN 13 and creatinine 1.07. Calcium 8.1 and magnesium 1.7. PROBLEMS: 1. Hyponatremia. Sodium level has essentially leveled off. She has been receiving IV Normal Saline for at least three days. I am going to stop it as her oral intake is adequate. We will monitor her electrolytes. 2. Hypokalemia, potassium level is borderline. She will be given one dose of potassium chloride 20 mEq today. MTDD
[2020-06-21 14:00] VITALS: BP 143/70
--- NOTE | 2020-06-21 14:39 | IPNPDOC ---
Text Note Date of Service The patient was seen on 06/21/20. NOTE Subjective: Patient is a 64 year old female with a PMHx of Mild Mental retardation, Chronic pancreatitis, DLP, CKD3, GERD who presented to the ER after she may have had a questionable seizure. While in the ER patient had lab work that revealed hyponatremia. She was admitted to the hospitalist service for further evaluation and treatment. Nephrology was called on consultation. Patient was seen and examined at the bedside. Currently patient does not respond to much questioning. Appears to be comfortable laying in bed and following instructions. Objective: Vitals (See below) General: Lying in bed, appears comfortable, Awake / Alert HEENT: NC, AT CVS: RRR, +S1S2 Lungs: Fair air entry b/l, -w/r/r Abdomen: Soft, ND, NT Extremities: No edema, - Calf tenderness Assessment and plan: Seizure?/ AMS - possibly 2/2 symptomatic hyponatremia - Sodium remains low - c/w Fluid restrictions - c/w Salt and Furosemide as per nephrology - Nephrology on consultation; appreciate their input Moderate intellectual disability - Patient is a resident of [facility] - Appears to be mostly non-verbal - Can follow commands Chronic pancreatic insufficiency - c/w Pancreatic enzyme supplementation Hypothyroidism. - c/w Levothyroxine DLP - c/w Simvastatin CKD3 - Cr at baseline Vitamin D deficiency - c/w Calcitrol GERD - c/w Omeprazole DVT prophylaxis - c/w TEDs/Sequentials Disposition: - Sodium continues to remain low - Nephrology on consult - Return to [facility] once Sodium improves VS,Fishbone, I+O VS, Fishbone, I+O Laboratory Tests 06/21/20 05:24 06/21/20 05:28 Vital Signs Date Time Temp Pulse Resp B/P (MAP) Pulse Ox O2 Delivery O2 Flow Rate FiO2 06/21/20 14:00 97.9 82 15 143/70 (94) 99 Room Air I&O- Last 24 Hours up to 6 AM 06/21/20 06:00 Intake Total 1890 ml Balance 1890 ml WILLIAM RAMIREZ MD Jun 21, 2020 14:39
[2020-06-21] MEDS: SODIUM CHLORIDE 1 GM TAB PO SCH ×2 (16:33→20:44)
[2020-06-21 18:00] VITALS: BP 140/70
[2020-06-21 18:10] LABS: CREATININE,RANDOM URINE 51.5 MG/DL
[2020-06-21] MEDS: LORATADINE 10 MG TAB PO SCH (20:44)
[2020-06-21] MEDS: SIMVASTATIN 20 MG TAB PO SCH (20:44)
[2020-06-21 22:00] VITALS: BP 131/83
[2020-06-22 02:00] VITALS: BP 132/84
[2020-06-22] MEDS: LEVOTHYROXINE 25MCG TABLET (0.025MG) PO SCH ×2 (05:29→05:43)
[2020-06-22 06:00] VITALS: BP 134/85
[2020-06-22 06:43] LABS: CALCIUM LEVEL 8.2 MG/DL (8.8-10.2); CREATININE FOR GFR 1.02 MG/DL (0.55-1.30); GLOMERULAR FILTRATION RATE 57.9 (>45)
[2020-06-22 07:31] LABS: HEMATOCRIT 36.3 % (36.0-47.0); HEMOGLOBIN 12.4 g/dl (12.0-15.5); MEAN CORPUSCULAR HEMOGLOBIN 28.1 pg (27.0-33.0); MEAN CORPUSCULAR HGB CONC 34.2 g/dl (32.0-36.5); MEAN CORPUSCULAR VOLUME 82.3 fl (80.0-96.0); PLATELET COUNT, AUTOMATED 190 10^3/uL (150-450); RED BLOOD COUNT 4.41 10^6/uL (4.00-5.40); WHITE BLOOD COUNT 7.7 10^3/uL (4.0-10.0)
[2020-06-22] MEDS: MULTIVITAMINS/MINERALS THERAP 1 TAB PO SCH (08:28)
[2020-06-22] MEDS: OMEPRAZOLE 20 MG CAP PO SCH (08:28)
[2020-06-22] MEDS: SODIUM CHLORIDE 1 GM TAB PO SCH (08:28)
[2020-06-22] MEDS: LORazepam 0.5 MG TAB PO SCH (08:28)
[2020-06-22] MEDS: CALCITRIOL 0.25 MCG CAP (S0169) PO SCH (08:28)
[2020-06-22] MEDS: PANCRELIPASE PO SCH ×2 (08:29→12:42)
--- NOTE | 2020-06-22 08:40 | IPNPDOC ---
Text Note Date of Service The patient was seen on 06/22/20. NOTE Subjective: Patient is a 64 year old female with a PMHx of Mild Mental retardation, Chronic pancreatitis, DLP, CKD3, GERD who presented to the ER after she may have had a questionable seizure. While in the ER patient had lab work that revealed hyponatremia. She was admitted to the hospitalist service for further evaluation and treatment. Nephrology was called on consultation. Patient was seen and examined at the bedside. Upon walking into room patient put her bed sheets over her head and went back to sleep. Did not answer any questions, but does not appear to be in any distress. Objective: Vitals (See below) General: Lying in bed, remains comfortable, awake / alert HEENT: NC, AT CVS: RRR, +S1S2 Lungs: Fair air entry b/l, no appreciable wheezing / rhonchi / rales Abdomen: Soft, non-distended, non-tender Extremities: LE are without any edema, - Calf tenderness Assessment and plan: Seizure?/ AMS - possibly 2/2 symptomatic hyponatremia - possibly 2/2 SIADH - Sodium has been improving with current regimen - c/w Fluid restrictions - c/w Salt tabs and Lasix as per nephrology - Nephrology on consultation; appreciate their input Moderate intellectual disability - Patient is a resident of [facility] - Appears to be mostly non-verbal Chronic pancreatic insufficiency - c/w Pancreatic enzyme supplementation Hypothyroidism. - c/w Levothyroxine DLP - c/w Simvastatin CKD3 - Cr at baseline Vitamin D deficiency - c/w Calcitrol Chronic constipation - Resumed bowel regimen GERD - c/w Omeprazole DVT prophylaxis - c/w TEDs/Sequentials Disposition: - Sodium slowly improving - Nephrology on consult - Return to [facility] once Sodium improves VS,Fishbone, I+O VS, Fishbone, I+O Laboratory Tests 06/22/20 05:37 06/22/20 05:40 Vital Signs Date Time Temp Pulse Resp B/P (MAP) Pulse Ox O2 Delivery O2 Flow Rate FiO2 06/22/20 06:00 98.1 73 18 134/85 (101) 95 Room Air I&O- Last 24 Hours up to 6 AM 06/22/20 06:00 Intake Total 1640 ml Output Total 200 ml Balance 1440 ml WILLIAM RAMIREZ MD Jun 22, 2020 08:40
[2020-06-22] MEDS ORDERED: FUROSEMIDE 20 MG TAB PO SCH (09:00)
[2020-06-22] MEDS ORDERED: HEPARIN SOD (PORCINE) 5000UNITS/ML 1ML VIAL/SYRINGE SQ SCH (09:00)
[2020-06-22] MEDS ORDERED: FURO20TA2 PO (09:51)
[2020-06-22] MEDS ORDERED: SODI1TAB6 PO (09:51)
[2020-06-22 10:00] VITALS: BP 141/65
--- NOTE | 2020-06-22 10:20 | DS.PDOC ---
Discharge Summary General Date of Admission Jun 17, 2020 at 04:07 Date of Discharge 06/22/2020 Discharge Summary PROCEDURES PERFORMED DURING STAY: [None]. ADMITTING DIAGNOSES / DISCHARGE DIAGNOSES: Seizure?/ AMS - possibly 2/2 symptomatic hyponatremia - possibly 2/2 SIADH Moderate intellectual disability Chronic pancreatic insufficiency Hypothyroidism. DLP CKD3 Vitamin D deficiency Chronic constipation GERD DVT prophylaxis COMPLICATIONS/CHIEF COMPLAINT: Syncope, Hyponatremia HISTORY OF PRESENT ILLNESS: Patient is a 64 year old female with a PMHx of Mild Mental retardation, Chronic pancreatitis, DLP, CKD3, GERD who presented to the ER after she may have had a questionable seizure. While in the ER patient had lab work that revealed hyponatremia. She was admitted to the hospitalist service for further evaluation and treatment. Nephrology was called on consultation. HOSPITAL COURSE: Seizure?/ AMS - possibly 2/2 symptomatic hyponatremia - possibly 2/2 SIADH - Sodium has been improving with current regimen - c/w Fluid restrictions - c/w Salt tabs and Lasix as per nephrology - Nephrology on consultation; has cleared for DC home with close followup - Patient has been advised to follow up with PCP and Nephrology within 7 days. Moderate intellectual disability - Patient is a resident of [facility] - Appears to be mostly non-verbal - Cleared PT for DC back to [facility] Chronic pancreatic insufficiency - c/w Pancreatic enzyme supplementation Hypothyroidism. - c/w Levothyroxine DLP - c/w Simvastatin CKD3 - Cr at baseline Vitamin D deficiency - c/w Calcitrol Chronic constipation - Resumed bowel regimen GERD - c/w Omeprazole DVT prophylaxis - c/w TEDs/Sequentials DISCHARGE MEDICATIONS: Please see below. ALLERGIES: Please see below. PHYSICAL EXAMINATION ON DISCHARGE: Vitals (See below) General: Lying in bed, remains comfortable, awake / alert HEENT: NC, AT CVS: RRR, +S1S2 Lungs: Fair air entry b/l, no appreciable wheezing / rhonchi / rales Abdomen: Soft, non-distended, non-tender Extremities: LE are without any edema, - Calf tenderness LABORATORY DATA: Please see below. ACTIVITY: [As tolerated]. DISCHARGE PLAN: Follow up with PCP and Nephrology within 7 days Remain complaint with treatment plan and medications Return to the ER if you experience any problems DISPOSITION: [facility] DISCHARGE CONDITION: [Stable]. TIME SPENT ON DISCHARGE: 35 minutes. Vital Signs/I&Os Vital Signs Date Time Temp Pulse Resp B/P (MAP) Pulse Ox O2 Delivery O2 Flow Rate FiO2 06/22/20 06:00 98.1 73 18 134/85 (101) 95 Room Air I&O- Last 24 Hours up to 6 AM 06/22/20 06:00 Intake Total 1640 ml Output Total 200 ml Balance 1440 ml Laboratory Data Labs 24H Laboratory Tests 2 06/21/20 17:33: Urine Random Osmolality 305L, Urine Random Creatinine 51.5, Urine Random Sodium 34 06/22/20 05:37: Nucleated Red Blood Cells % (auto) 0.0 06/22/20 05:40: Anion Gap 7L, Glomerular Filtration Rate 57.9, Calcium Level 8.2L CBC/BMP Laboratory Tests 06/22/20 05:37 06/22/20 05:40 Discharge Medications Scheduled Calcitriol (Calcitriol) 0.25 Mcg Capsule, 0.25 MCG PO DAILY, (Reported) Calcium Carbonate/Vitamin D3 (Calcium 600-Vit D3 400 Tablet) 1 Each Tablet, 1 TAB PO BID, (Reported) Carbamide Peroxide (Debrox) 15 Ml Drops, 5 DROP AU 1XWK, (Reported) SATURDAY AT [facility] Bradford Tar (Darian-Gel Tar) 118 Ml Shampoo, 1 DOSE EXT 2XW, (Reported) SATURDAY AND SATURDAY Furosemide (Furosemide) 20 Mg Tablet, 20 MG PO DAILY Lactulose (Lactulose) 10 Gm/15 Ml Solution, 30 ML PO QPM, (Reported) TAKES AT 1600 Levothyroxine Sodium (Synthroid) 25 Mcg Tablet, 25 MCG PO DAILY, (Reported) Lipase/Protease/Amylase (Zenpep Dr 10,000 Unit Capsule) 1 Each Capsule.dr, 1 CAP PO WMHS, (Reported) QAM, 1200, 1600, [facility] Loratadine (Loratadine) 10 Mg Tablet, 10 MG PO QHS, (Reported) Lorazepam (Ativan) 0.5 Mg Tablet, 0.5 MG PO BID, (Reported) Multivitamins (Thera M Plus Tablet) 1 Each Tablet, 1 TAB PO DAILY, (Reported) Omeprazole (Omeprazole) 40 Mg Capsule.dr, 40 MG PO BID, (Reported) Polyethylene Glycol 3350 (Miralax) 17 Gm Powd.pack, 17 GM PO QPM, (Reported) TAKES AT 1600 Simvastatin (Simvastatin) 20 Mg Tablet, 20 MG PO QHS, (Reported) Sodium Chloride (Sodium Chloride) 1 Gm Tablet, 1 GM PO TID Allergies Coded Allergies: ibuprofen (Verified Adverse Reaction, Intermediate, Hx of PANCREATITIS, 06/16/20) codeine (Verified Adverse Reaction, Mild, GI, 06/16/20) WILLIAM RAMIREZ MD Jun 22, 2020 10:20
[2020-06-22 11:44] LABS: MAGNESIUM LEVEL 1.9 MG/DL (1.8-2.4)
--- NOTE | 2020-06-22 16:29 | ECHO ---
DATE OF PROCEDURE: 06/17/2020 Age: 64 Gender: Female Height: Weight: REFERRING PHYSICIAN: Keya Sanford MD Patient location: EG Room 8 INDICATION: Syncope. MEASUREMENTS: 2D measurement: IVS 0.9 cm LV 4.7 cm LVPW 0.8 cm LA 3.1 cm IVC 1.1 cm Doppler measurements: Peak velocity across the aortic valve 1.5 cm/s Peak velocity across the LVOT 0.85 cm/s Mitral E 0.56 Mitral A 0.61 with a ratio of 0.8 2D COMMENTS: 1. Normal left ventricular size, wall thickness and left ventricular systolic function appears to be moderately depressed. The estimated global left ventricular systolic ejection fraction is 35 to 40%. 2. Normal left atrium. The right atrium and the right ventricle appear to be normal in limited views. 3. The aortic root was not well visualized. 4. The atrial septum appears to be normal without evidence of defect or shunt. 5. Trace pericardial effusion, no evidence of cardiac tamponade. 6. Mildly calcified aortic valve. Leaflet excursion appears to be normal. The mitral valve and the tricuspid valve appear to be normal. The pulmonic valve and proximal pulmonary artery branches were not well visualized. 7. The inferior vena cava was normal in size. Central venous pressure is most likely normal. DOPPLER: It detects mild aortic regurgitation, trace mitral regurgitation. Abnormal relaxation pattern was noted across the mitral valve leaflets, as well as the mitral valve annulus consistent with features of grade 1 left ventricular diastolic dysfunction. IMPRESSION: 1. Technically limited study due to poor acoustic window. 2. Probable moderately depressed left ventricular systolic function. There are some features of left ventricular diastolic dysfunction manifested by abnormal relaxation. 3. Aortic valve sclerosis with mild aortic regurgitation, but no aortic stenosis. 4. Trace mitral regurgitation. 5. The aortic root was not well visualized. 6. The right heart chambers were not well visualized. [facility]
--- NOTE | 2020-06-23 12:07 | IPN ---
DATE: 06/21/2020 SUBJECTIVE: Ms. Hood is seen this morning at her bedside. She has a known history of mental retardation and was admitted with weakness and hyponatremia. Her sodium level has partially improved. The patient does get fed by [facility] staff member. At present, there is nobody at her bedside. PHYSICAL EXAMINATION: VITAL SIGNS: Temperature 97 degrees Fahrenheit, heart rate about 100 per minute, respiratory rate 16 per minute. Blood pressure 164/88 mmHg and oxygen saturation 98% on room air. HEENT: Head is atraumatic. NECK: Supple without JVD or thyroid enlargement. HEART: Heart sounds are somewhat tachycardic. LUNGS: Clear to auscultation. ABDOMEN: Soft and nontender. Bowel sounds are normal. EXTREMITIES: Without any cyanosis or clubbing. NEUROLOGICAL: Grossly intact and without focal deficit. LABORATORY DATA: Todays labs shows the sodium level down to 125, potassium 3.8, chloride 92, CO2 28, BUN 12 and creatinine 0.83. Glucose 96 and calcium 8.3. PROBLEMS: 1. Hyponatremia. Her sodium level did get slightly worse compared to yesterday. Her IV fluids have already been stopped as even with IV normal saline her sodium level was not changing much and she seems well hydrated. I am going to put her on oral sodium chloride tablets and low dose furosemide 20 mg with one dose today. Electrolytes will be checked again tomorrow. Most likely her hyponatremia is related to SIADH. 2. Hypokalemia. Her potassium level has improved and she has good oral intake of her diet. At present, she is not receiving any potassium supplement. Will recheck her electrolytes tomorrow and consider giving her potassium if needed. IMANID
--- NOTE | 2020-06-24 11:45 | IPN ---
DATE: 06/22/2020 SUBJECTIVE: Ms. Hood is seen this morning at her bedside. She is a [facility] resident who is a poor historian. She is minimally communicative. She has no complaints and does not look in any distress. She has been fed by [facility] staff members. PHYSICAL EXAMINATION: VITAL SIGNS: Temperature 98 degrees Fahrenheit, heart rate is 85 per minute and respiratory rate 18 per minute. Blood pressure 141/65 mmHg and oxygen saturation 94% on room air. HEENT: Head is atraumatic. NECK: Supple without JVD or thyroid enlargement. HEART: Heart sounds are regular. LUNGS: Clear to auscultation. ABDOMEN: Soft and nontender. Bowel sounds are normal. EXTREMITIES: Without any cyanosis or clubbing. LABS: Todays labs shows sodium level 128, potassium 4.0, chloride 92, CO2 29, BUN 16 and creatinine 1.02. Glucose 85 and calcium 8.2. PROBLEMS: 1. Hyponatremia, most likely she has chronic hyponatremia. She does have some improvements since yesterday. For three days prior to yesterday she was receiving IV normal saline which did not really make any significant change in her sodium level. Yesterday, we started her on oral sodium chloride tablets and low dose Lasix. Sodium level remains stable at this point. 2. Disposition: I think from a renal standpoint the patient can be discharged back to [facility] and follow-up as an outpatient. Mild hyponatremia without any symptoms does not require continued hospitalization. I think she can be followed up as an outpatient in the office. She should see Dr. Reese next week in the office. I have discussed this with Dr. Joel. ROLANDO
--- NOTE | 2020-06-28 21:19 | ECGEPIP ---
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
--- NOTE | 2020-07-01 07:57 | ECGEPIP ---
SINUS RHYTHM WITH FREQUENT SUPRAVENTRICULAR PREMATURE COMPLEXES IN A BIGEMINAL PATTERN MARKED LEFT AXIS DEVIATION LEFT VENTRICULAR HYPERTROPHY AND ST-T CHANGE NO PREVIOUS SEE SCANNED DOWNTIME REPORT MTDD
--- NOTE | 2020-07-12 13:24 | REP ---
LEFT KNEE SERIES CLINICAL: Left knee pain and swelling. TECHNIQUE: AP, lateral, and bilateral oblique views of the left knee. FINDINGS: Osteopenia and advanced tricompartmental osteoarthritic degenerative changes are appreciated including osteophytosis, cortical irregularities, joint space narrowing, and chondrocalcinosis. Overlying soft tissue swelling and joint effusion are also noted. No obvious acute fracture or dislocation identified. IMPRESSION: Advanced tricompartmental osteoarthritic degenerative changes. Soft tissue swelling and effusion. No definite acute fracture. If the patient remains symptomatic, CT or MRI may be warranted for further investigation. MTDD
--- NOTE | 2020-07-12 13:24 | REP ---
CAROTID ULTRASOUND TECHNIQUE: Real-time ultrasound evaluation and duplex Doppler interrogation of the extracranial carotid vasculature is performed. FINDINGS: There is minimal plaquing diffusely bilaterally in the common carotid arteries and internal carotid arteries without duplex Doppler sonographic evidence of hemodynamically significant stenosis. The study is somewhat limited due to patient motion and mental status. There is no evidence of elevated peak systolic velocity in either internal carotid artery. The vertebral arteries could not be seen bilaterally. PEAK FLOW VELOCITY ANALYSIS RIGHT cm/s LEFT cm/s ICA PSV 52.1 60.4 ICA EDV 15.7 17.2 CCA PSV 67.1 60.9 ECA PSV 95.9 66.3 ICA/CCA RATIO 0.78 0.99 IMPRESSION: Somewhat limited exam due to patient mental status and motion. No compelling duplex Doppler sonographic evidence of hemodynamically significant stenosis bilaterally of the internal carotid arteries. MTDD
== END 2020-06-22 13:53 | disposition home or self-care (01) | DRG 641 ==
LOC: M ED 21:30 → M ED INP 06-17 04:07 → ENRESERVTM 06-17 14:33 → M MSPAV 06-17 15:02
PROVIDERS: ADMIT Internal Medicine; ATTEND Internal Medicine
DX: E87.1 Hypo-osmolality and hyponatremia (principal); F71 Moderate intellectual disabilities; K86.89 Other specified diseases of pancreas; E03.9 Hypothyroidism, unspecified; R56.9 Unspecified convulsions; N18.3 Chronic kidney disease, stage 3 (moderate); E55.9 Vitamin D deficiency, unspecified; K21.9 Gastro-esophageal reflux disease without esophagitis; K59.00 Constipation, unspecified; Z79.899 Other long term (current) drug therapy; Z88.6 Allergy status to analgesic agent; Z88.5 Allergy status to narcotic agent; E78.5 Hyperlipidemia, unspecified; L40.8 Other psoriasis

== ENCOUNTER → 2020-07-28 | Outpatient (REF) | payer MEDICARE, MEDICAID ==
[~2020-07-28] MED LIST changes: +ATIV1TAB10 PO; +CALC1CAP31 PO; +CALC1TAB74 PO; +CALCCAP4 PO; +CLAR10CA3 PO; +DEBR6.5S4 AU; +FURO20TA2 PO; +LACT10SO3 PO; +LEVO25TA5 PO; +LORA-436 PO; +MIRA1POW3 PO; +OMEP-221 PO; +PANC10CAEC PO; +PEGPOW PO; +ROCA0.25 PO; +SIMV20TA22 PO; +SM E OTIC; +SODI1TAB6 PO; +SYNT25TA PO; +VITMTA PO; +ZENP1CAP PO; +[UNRECOGNIZED DRUG - CODE] EXT
[2020-07-28 15:50] LABS: OSMOLALITY URINE 297 MOSM/KG (500-800)
[2020-07-28 16:03] LABS: SODIUM,RANDOM URINE 53 MEQ/L
[2020-07-28 16:12] LABS: ALBUMIN 3.6 GM/DL (3.2-5.2); BILIRUBIN,TOTAL 0.4 MG/DL (0.2-1.0); C REACTIVE PROTEIN QUANTITATIV 0.3 MG/DL (0.00-0.30); CALCIUM LEVEL 9.5 MG/DL (8.8-10.2); CHOLESTEROL RISK RATIO 2.671 (<5); CREATININE FOR GFR 1.37 MG/DL (0.55-1.30); GLOMERULAR FILTRATION RATE 41.1 (>45); POTASSIUM SERUM 4.2 MEQ/L (3.5-5.1); TOTAL PROTEIN 6.9 GM/DL (6.4-8.2)
[2020-07-28 16:31] LABS: HEMOGLOBIN A1c 5.9 %
[2020-07-28 17:24] LABS: PTH INTACT 33.1 PG/ML (18.5-88.0)
== END ==
LOC: M SFHCPLAZ 12:55
PROVIDERS: ATTEND Family Medicine
DX: R73.01 Impaired fasting glucose (principal); E55.9 Vitamin D deficiency, unspecified; E87.1 Hypo-osmolality and hyponatremia; Z79.899 Other long term (current) drug therapy

== ENCOUNTER → 2020-08-02 | Outpatient (REF) | payer MEDICARE, MEDICAID ==
[2020-08-02 11:00] LABS: ALBUMIN 3.4 GM/DL (3.2-5.2); CALCIUM LEVEL 9.5 MG/DL (8.8-10.2); CREATININE FOR GFR 1.2 MG/DL (0.55-1.30); GLOMERULAR FILTRATION RATE 47.8 (>45); POTASSIUM SERUM 4.4 MEQ/L (3.5-5.1)
== END ==
LOC: M PLALAB 08:12
PROVIDERS: ATTEND Family Medicine
DX: N18.30 Chronic kidney disease, stage 3 unspecified (principal)

== ENCOUNTER → 2020-08-12 | Outpatient (REF) | payer MEDICARE, MEDICAID ==
[2020-08-12 17:53] LABS: ALBUMIN 3.4 GM/DL (3.2-5.2); CALCIUM LEVEL 9.2 MG/DL (8.8-10.2); CREATININE FOR GFR 1.15 MG/DL (0.55-1.30); GLOMERULAR FILTRATION RATE 50.3 (>45); PHOSPHORUS LEVEL 4.5 MG/DL (2.5-4.9); POTASSIUM SERUM 4.5 MEQ/L (3.5-5.1)
== END ==
LOC: M SFHCPLAZ 13:18
PROVIDERS: ATTEND Family Medicine
DX: E87.1 Hypo-osmolality and hyponatremia (principal)
CPT/HCPCS: 36415; 80069; 83880; G0463

== ENCOUNTER → 2020-09-18 | Outpatient (CLI) | payer MEDICARE, MEDICAID ==
[2020-09-18 11:37] LABS: BASO % 0.5 % (0.0-1.0); EOS # 0.1 10^3/uL (0.0-0.5); EOS % 1.1 % (0.0-3.0); HEMATOCRIT 43.5 % (36.0-47.0); LYMPH # 1.2 10^3/uL (1.5-5.0); LYMPH % 15.6 % (24.0-44.0); MEAN CORPUSCULAR HEMOGLOBIN 27.8 pg (27.0-33.0); MEAN CORPUSCULAR HGB CONC 32.2 g/dl (32.0-36.5); MEAN CORPUSCULAR VOLUME 86.5 fl (80.0-96.0); MONO # 0.4 10^3/uL (0.0-0.8); NEUTROPHILS # 5.6 10^3/uL (1.5-8.5); NEUTROPHILS % 76.7 % (36.0-66.0); PLATELET COUNT, AUTOMATED 200 10^3/uL (150-450); RED BLOOD COUNT 5.03 10^6/uL (4.00-5.40); WHITE BLOOD COUNT 7.4 10^3/uL (4.0-10.0)
[2020-09-18 12:14] LABS: ALBUMIN 3.4 GM/DL (3.2-5.2); BILIRUBIN,TOTAL 0.4 MG/DL (0.2-1.0); CALCIUM LEVEL 9.4 MG/DL (8.8-10.2); CREATININE FOR GFR 1.42 MG/DL (0.55-1.30); GLOMERULAR FILTRATION RATE 39.4 (>45); PHOSPHORUS LEVEL 3.3 MG/DL (2.5-4.9); TOTAL PROTEIN 6.5 GM/DL (6.4-8.2)
== END ==
LOC: M LAB 10:45
PROVIDERS: ATTEND Family Medicine
DX: E87.1 Hypo-osmolality and hyponatremia (principal); E55.9 Vitamin D deficiency, unspecified; N18.30 Chronic kidney disease, stage 3 unspecified

== ENCOUNTER → 2020-12-13 | Outpatient (CLI) | payer MEDICARE, MEDICAID ==
[~2020-12-13] MED LIST changes: -LORA-436 PO; +LORA-930 PO; -PEGPOW PO; +POLY510P14 PO
--- NOTE | 2020-12-13 12:10 | REPMRS ---
Patient History The patient states she has not had a clinical breast exam in over a year. No Hormone Replacement Therapy [facility] lifetime risk for breast cancer is 6.0%. Volpara breast density c . Digital Woman Screen Mammo: December 13, 2020 - Exam #: [id number] Bilateral CC and MLO view(s) were taken. Technologist: Geetha Rios, Technologist Prior study comparison: November 17, 2019, bilateral digital woman screen mammo performed at [facility] [place]. September 09, 2018, bilateral digital woman screen mammo performed at [facility] [place]. FINDINGS: The breast tissue is heterogeneously dense. This may lower the sensitivity of mammography. There has been no change in the appearance of the mammogram from the prior studies. There is a moderate amount of residual fibroglandular tissue which is fairly symmetric. There is no interval development of dominant mass, areas of architectural distortion, or clustered microcalcification typical of malignancy. Assessment: BI-RADS/ACR category 1 mammogram. Negative Mammogram. Recommendation Routine screening mammogram in 1 year (for women over age 40). This mammogram was interpreted with the aid of an FDA-approved computer-aided dectection system. Electronically Signed By: Bharathi Goddard MD 12/13/20 [id number]
== END ==
LOC: M WHC 11:07
PROVIDERS: ATTEND Family Medicine
DX: Z12.31 Encounter for screening mammogram for malignant neoplasm of breast (principal)

== ENCOUNTER → 2021-02-02 | Outpatient (REF) | payer MEDICARE, MEDICAID | LOC: M PLALAB 12:42 | PROVIDERS: ATTEND Family Medicine | DX: I50.40 Unspecified combined systolic (congestive) and diastolic (congestive) heart failure (principal); E55.9 Vitamin D deficiency, unspecified; R73.01 Impaired fasting glucose ==

== ENCOUNTER → 2021-02-13 | Outpatient (CLI) | payer MEDICARE, MEDICAID ==
[2021-02-13 11:20] LABS: BASO % 0.7 % (0.0-1.0); EOS # 0.1 10^3/uL (0.0-0.5); EOS % 1.8 % (0.0-3.0); HEMATOCRIT 44.3 % (36.0-47.0); LYMPH # 1.4 10^3/uL (1.5-5.0); LYMPH % 24.4 % (24.0-44.0); MEAN CORPUSCULAR HEMOGLOBIN 27.5 pg (27.0-33.0); MEAN CORPUSCULAR HGB CONC 31.6 g/dl (32.0-36.5); MEAN CORPUSCULAR VOLUME 86.9 fl (80.0-96.0); MONO # 0.5 10^3/uL (0.0-0.8); NEUTROPHILS # 3.6 10^3/uL (1.5-8.5); NEUTROPHILS % 63.9 % (36.0-66.0); PLATELET COUNT, AUTOMATED 191 10^3/uL (150-450); WHITE BLOOD COUNT 5.7 10^3/uL (4.0-10.0)
[2021-02-13 15:15] LABS: ALBUMIN 3.5 GM/DL (3.2-5.2); BILIRUBIN,TOTAL 0.4 MG/DL (0.2-1.0); CALCIUM LEVEL 9.2 MG/DL (8.8-10.2); CREATININE FOR GFR 1.18 MG/DL (0.55-1.30); GLOMERULAR FILTRATION RATE 48.8 (>45); POTASSIUM SERUM 4.5 MEQ/L (3.5-5.1); TOTAL PROTEIN 6.6 GM/DL (6.4-8.2)
[2021-02-13 15:19] LABS: TOTAL 25(OH) VITAMIN D 45.5 NG/ML (30.0-100.0)
[2021-02-13 15:20] LABS: PTH INTACT 42.2 PG/ML (18.5-88.0)
== END ==
LOC: M PLALAB 08:29
PROVIDERS: ATTEND Family Medicine
DX: I50.40 Unspecified combined systolic (congestive) and diastolic (congestive) heart failure (principal); E03.9 Hypothyroidism, unspecified; E55.9 Vitamin D deficiency, unspecified; N18.30 Chronic kidney disease, stage 3 unspecified

== ENCOUNTER → 2021-08-02 | Outpatient (CLI) | payer MEDICARE, MEDICAID ==
[~2021-08-02] MED LIST changes: +GNP1SOL5 OTIC; -SM E OTIC
[2021-08-02 09:19] LABS: ALBUMIN 3.3 GM/DL (3.2-5.2); BILIRUBIN,TOTAL 0.4 MG/DL (0.2-1.0); C REACTIVE PROTEIN QUANTITATIV 0.3 MG/DL (0.00-0.30); CALCIUM LEVEL 9.4 MG/DL (8.8-10.2); CHOLESTEROL RISK RATIO 2.682 (<5); CREATININE FOR GFR 1.36 MG/DL (0.55-1.30); FREE T4 0.99 NG/DL (0.76-1.46); GLOMERULAR FILTRATION RATE 41.3 (>45); POTASSIUM SERUM 4.7 MEQ/L (3.5-5.1); THYROID STIMULATING HORMONE 1.35 uIU/ML (0.358-3.740); TOTAL PROTEIN 6.6 GM/DL (6.4-8.2)
[2021-08-02 09:38] LABS: HEMOGLOBIN A1c 5.7 %
== END ==
LOC: M LAB 07:12
PROVIDERS: ATTEND Family Medicine
DX: R73.01 Impaired fasting glucose (principal); E78.5 Hyperlipidemia, unspecified; E87.1 Hypo-osmolality and hyponatremia; E03.9 Hypothyroidism, unspecified

== ENCOUNTER → 2021-08-15 | Outpatient (CLI) | payer MEDICARE, MEDICAID ==
--- NOTE | 2021-08-16 10:00 | ECHO ---
ECHOCARDIOGRAM DATE OF PROCEDURE: 08/15/2021 Age: Gender: Height: 175 cm Weight: 73 kg REFERRING PHYSICIAN: Dr. 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 MEASUREMENTS: IVS: 0.9 LV: 4.2 LVPW: 0.8 LA: 2.9 Aorta: 2.7 Mitral E wave velocity is 62; A wave 88 E prime septal: 6.0 E prime lateral: 6.6 FINDINGS: This study if of fair technical quality, underlying sinus rhythm. Left ventricle has normal size and overall normal systolic function. Based on the fair quality of images, I cannot rule out subtle wall motion abnormalities. Overall, preserved left ventricular (LV) systolic function and I estimate ejection fraction around 60%. The right ventricle appears grossly normal in size and systolic function. Both atria appear normal. Aortic valve is tricuspid. It is mildly sclerotic but mobility is preserved. There are also degenerative abnormalities of mitral valve with mitral annulus calcifications but mobility of leaflets is intact. Tricuspid valve appears normal. Pulmonic valve was not seen. No pericardial effusion is noted. Inferior vena cava has normal size. Aortic root is normal. Aortic arch was not well seen. Abdominal aorta appears normal. Doppler interrogation reveals no aortic stenosis and trace aortic insufficiency. Mitral valve is functionally competent. There is trivial tricuspid and pulmonic insufficiency. Unfortunately, the quality of TR jet was poor and consequently I cannot estimate pulmonary artery pressure. Mitral inflow pattern and tissue Doppler imaging of mitral annulus revealed grade 1 diastolic dysfunction. CONCLUSIONS: 1. Study is of acceptable technical quality but unfortunately with fair visualization of especially ventricular segments. Underlying sinus rhythm. 2. Normal left ventricle (LV) size with grossly preserved left ventricular (LV) systolic function and grade 1 diastolic dysfunction. 3. No hemodynamically significant valvular disease. 4. Likely normal central venous pressure. 5. Unable to estimate pulmonary artery pressure.
== END ==
LOC: M CARPUL 08-03 10:26
PROVIDERS: ATTEND Family Medicine
DX: I50.40 Unspecified combined systolic (congestive) and diastolic (congestive) heart failure (principal)

== ENCOUNTER → 2021-08-18 | Outpatient (REF) | payer MEDICARE, MEDICAID | LOC: M LAB REF 16:55 | PROVIDERS: ATTEND Physician Assistant Medical | DX: H92.11 Otorrhea, right ear (principal) ==

== ENCOUNTER → 2021-09-05 | Outpatient (CLI) | payer MEDICARE, MEDICAID ==
--- NOTE | 2021-09-05 12:52 | REP ---
INDICATION: DIFFICULTY IN WALKING, NOT ELSEWHERE CLASSIFIED COMPARISON: None. TECHNIQUE: AP and frog-lateral views of the right hip FINDINGS: Generalized age-related changes include subtle increased sclerosis to the acetabulum with minimal joint space narrowing. No further overt osteoarthritic or significant degenerative changes are appreciated. No evidence for acute or healed injury. Surrounding soft tissues are normal. IMPRESSION: Generalized age-related degenerative changes. <Electronically signed by Willy Crocker > 09/05/21 [id number]
--- NOTE | 2021-09-05 12:53 | REP ---
INDICATION: DIFFICULTY IN WALKING, NOT ELSEWHERE CLASSIFIED COMPARISON: None. TECHNIQUE: AP, lateral, bilateral oblique views. FINDINGS: No acute fracture or dislocation. Skeletal structures and joint spaces are intact and normal. Ankle mortise appears stable. No subcutaneous emphysema or radiodense foreign body. IMPRESSION: Normal age-appropriate right ankle radiograph series. <Electronically signed by Willy Crocker > 09/05/21 [id number]
--- NOTE | 2021-09-05 12:54 | REP ---
INDICATION: DIFFICULTY IN WALKING, NOT ELSEWHERE CLASSIFIED COMPARISON: None. TECHNIQUE: AP, lateral, bilateral oblique and sunrise views. FINDINGS: Early advanced tricompartmental osteoarthritic degenerative changes include periarticular sclerosis, elements of joint space narrowing, osteophytosis and chondrocalcinosis. Small loose bodies within the joint space cannot be excluded. No evidence for acute fracture or dislocation. No obvious effusion. IMPRESSION: Early advanced tricompartmental osteoarthritic degenerative changes. <Electronically signed by Willy Crocker > 09/05/21 [id number]
== END ==
LOC: M PLAIMG 11:36
PROVIDERS: ATTEND Nurse Practitioner Family
DX: M17.11 Unilateral primary osteoarthritis, right knee (principal); R26.2 Difficulty in walking, not elsewhere classified

== ENCOUNTER 2021-09-19 08:06 | Outpatient (RCR) | payer MEDICARE, MEDICAID | END 2021-10-13 | LOC: M PT 08:06 | PROVIDERS: ATTEND Nurse Practitioner Family | DX: M17.0 Bilateral primary osteoarthritis of knee (principal); M16.11 Unilateral primary osteoarthritis, right hip ==

== ENCOUNTER → 2021-11-22 | Outpatient (CLI) | payer MEDICARE, MEDICAID ==
[~2021-11-22] MED LIST changes: +MULT400T10 PO; -OMEP-221 PO; +OMEP40CA5 PO; +[UNRECOGNIZED DRUG - CODE] XX
== END ==
LOC: M LABSMTC 09:20
PROVIDERS: ATTEND Anesthesiology
DX: Z01.812 Encounter for preprocedural laboratory examination (principal); Z11.52 Encounter for screening for COVID-19

== ENCOUNTER → 2022-02-08 | Outpatient (CLI) | payer MEDICARE, MEDICAID ==
[2022-02-08 12:48] LABS: BASO % 0.6 % (0.0-1.0); EOS # 0.1 10^3/uL (0.0-0.5); EOS % 1.3 % (0.0-3.0); HEMATOCRIT 43.1 % (36.0-47.0); HEMOGLOBIN 14.2 g/dl (12.0-15.5); LYMPH % 16.6 % (24.0-44.0); MEAN CORPUSCULAR HEMOGLOBIN 27.9 pg (27.0-33.0); MEAN CORPUSCULAR HGB CONC 32.9 g/dl (32.0-36.5); MEAN CORPUSCULAR VOLUME 84.7 fl (80.0-96.0); MONO # 0.5 10^3/uL (0.0-0.8); MONO % 8.1 % (2.0-8.0); NEUTROPHILS # 4.6 10^3/uL (1.5-8.5); NEUTROPHILS % 73.2 % (36.0-66.0); PLATELET COUNT, AUTOMATED 186 10^3/uL (150-450); RED BLOOD COUNT 5.09 10^6/uL (4.00-5.40); WHITE BLOOD COUNT 6.2 10^3/uL (4.0-10.0)
[2022-02-08 13:08] LABS: HEMOGLOBIN A1c 5.6 %
[2022-02-08 13:25] LABS: ALBUMIN 3.6 GM/DL (3.2-5.2); BILIRUBIN,TOTAL 0.8 MG/DL (0.2-1.0); CALCIUM LEVEL 9.4 MG/DL (8.8-10.2); CREATININE FOR GFR 1.41 MG/DL (0.55-1.30); GLOMERULAR FILTRATION RATE 39.6 (>45); MAGNESIUM LEVEL 2.2 MG/DL (1.8-2.4); POTASSIUM SERUM 4.4 MEQ/L (3.5-5.1); TOTAL PROTEIN 6.7 GM/DL (6.4-8.2)
== END ==
LOC: M WUC 08:47
PROVIDERS: ATTEND Family Medicine
DX: R73.01 Impaired fasting glucose (principal); D50.9 Iron deficiency anemia, unspecified; I50.32 Chronic diastolic (congestive) heart failure

== ENCOUNTER → 2022-04-12 | Outpatient (CLI) | payer MEDICARE, MEDICAID ==
[~2022-04-12] MED LIST changes: +OMEP-173; +VITA100093 PO
== END ==
LOC: M LABSMTC 10:17
PROVIDERS: ATTEND Anesthesiology
DX: Z01.812 Encounter for preprocedural laboratory examination (principal); Z20.822 Contact with and (suspected) exposure to COVID-19

== ENCOUNTER → 2022-04-13 | Outpatient (CLI) | payer MEDICARE, MEDICAID | LOC: M WHC 13:46 | PROVIDERS: ATTEND Family Medicine | DX: Z12.31 Encounter for screening mammogram for malignant neoplasm of breast (principal); M85.80 Other specified disorders of bone density and structure, unspecified site ==

== ENCOUNTER 2022-04-17 07:56 | Day surgery (SDC) | payer MEDICARE, MEDICAID ==
[~2022-04-17] VITALS: Ht 177.8 cm; Wt 69.9 kg
[2022-04-17] MEDS ORDERED: ONDANSETRON 4MG 2ML VIAL As Ordered ONE (09:06)
[2022-04-17] MEDS ORDERED: propofoL 200 MG/20 ML VIAL As Ordered ONE (09:06)
[2022-04-17] MEDS ORDERED: LIDOCAINE 2% INJ 100 MG/5 ML SYRINGE As Ordered ONE (09:06)
[2022-04-17] MEDS ORDERED: CIPRODEX OTIC SUSP 7.5ML As Ordered ONE (09:08)
[2022-04-17] MEDS ORDERED: oxyCODONE 5MG TAB PO PRN (10:00)
[2022-04-17] MEDS ORDERED: LR 1,000 ML IV SCH ×2 (10:00→10:15)
[2022-04-17] MEDS ORDERED: fentaNYL 100 MCG/2 ML INJECTION IV PRN (10:00)
[2022-04-17] MEDS ORDERED: HYDROMORPHONE HCL 0.5 MG/ 0.5 ML SYRINGE (J1170 PER 1) IV PRN (10:00)
[2022-04-17] MEDS ORDERED: ONDANSETRON 4MG 2ML VIAL IV PRN (10:00)
[2022-04-17] MEDS ORDERED: hydrALAZINE 20MG/ML 1ML VIAL (J0360 PER 20MG) IV PRN (10:30)
[2022-04-17] MEDS: LABETALOL 100MG/20ML VIAL IV PRN ×3 (10:37→10:49)
[2022-04-17] MEDS ORDERED: MIDAZOLAM INJ 2MG/2ML VIAL (J2250 PER 1MG) IV PRN (11:05)
[2022-04-17 11:49] VITALS: BP 162/82
== END 2022-04-17 11:52 | disposition home or self-care (01) ==
LOC: M SDC 07:56
PROVIDERS: ATTEND Otolaryngology
DX: H61.23 Impacted cerumen, bilateral (principal)
CPT/HCPCS: 69209; J0360; J2405

== ENCOUNTER 2022-04-29 11:45 | Emergency (ER) | payer MEDICARE, MEDICAID ==
[~2022-04-29] VITALS: Ht 162.6 cm; Wt 70.9 kg
[2022-04-29] MEDS ORDERED: ASPIRIN 81 MG CHEW TABLET PO ONE (12:00)
[2022-04-29 12:13] LABS: BASO # 0.1 10^3/uL (0.0-0.2); BASO % 0.7 % (0.0-1.0); EOS # 0.1 10^3/uL (0.0-0.5); EOS % 1.1 % (0.0-3.0); HEMATOCRIT 41.1 % (36.0-47.0); HEMOGLOBIN 13.6 g/dl (12.0-15.5); LYMPH # 1.7 10^3/uL (1.5-5.0); LYMPH % 22.6 % (24.0-44.0); MEAN CORPUSCULAR HEMOGLOBIN 28.5 pg (27.0-33.0); MEAN CORPUSCULAR HGB CONC 33.1 g/dl (32.0-36.5); MEAN CORPUSCULAR VOLUME 86.2 fl (80.0-96.0); MONO # 0.5 10^3/uL (0.0-0.8); MONO % 7.1 % (2.0-8.0); NEUTROPHILS # 5.1 10^3/uL (1.5-8.5); NEUTROPHILS % 68.2 % (36.0-66.0); PLATELET COUNT, AUTOMATED 184 10^3/uL (150-450); RED BLOOD COUNT 4.77 10^6/uL (4.00-5.40); WHITE BLOOD COUNT 7.5 10^3/uL (4.0-10.0)
[2022-04-29 12:28] LABS: INR 1.01; PROTHROMBIN TIME 13.8 SECONDS (12.7-14.5)
[2022-04-29] MEDS ORDERED: MAGNESIUM SULFATE IN WATER 2 GM in IV 1 EA IV STA ×2 (12:28)
[2022-04-29 12:29] LABS: PARTIAL THROMBOPLASTIN TIME 24.3 SECONDS (25.9-37.0)
[2022-04-29] MEDS ORDERED: AMIODARONE HCL 150 MG in IV 1 EA IV STA ×2 (12:30→14:03)
[2022-04-29 12:31] LABS: D-DIMER QUANT 590.45 ng/ml (<500)
[2022-04-29 13:04] LABS: CALCIUM LEVEL 8.6 MG/DL (8.8-10.2); CREATININE FOR GFR 1.41 MG/DL (0.55-1.30); FREE T4 0.96 NG/DL (0.76-1.46); GLOMERULAR FILTRATION RATE 39.6 (>45); THYROID STIMULATING HORMONE 3.77 uIU/ML (0.358-3.740)
[2022-04-29 13:20] LABS: MAGNESIUM LEVEL 1.6 MG/DL (1.8-2.4); PHOSPHORUS LEVEL 3.3 MG/DL (2.5-4.9)
[2022-04-29 13:20] LABS: RSV AMPLIFICATION NEGATIVE (NEGATIVE)
[2022-04-29 14:47] VITALS: BP 137/105
== END 2022-04-29 15:20 | disposition short-term general hospital (02) ==
LOC: EDBD 11:45 → M ED 11:45
DX: I47.2 Ventricular tachycardia (principal); I48.91 Unspecified atrial fibrillation; F72 Severe intellectual disabilities; F03.90 Unspecified dementia, unspecified severity, without behavioral disturbance, psychotic disturbance, mood disturbance, and anxiety; E03.9 Hypothyroidism, unspecified; I50.30 Unspecified diastolic (congestive) heart failure; Z79.890 Hormone replacement therapy; Z79.899 Other long term (current) drug therapy; Z88.5 Allergy status to narcotic agent; Z88.6 Allergy status to analgesic agent
CPT/HCPCS: 36415; 71045; 80048; 83735; 83880; 84100; 84439; 84443; 84484; 85025; 85379; 85610; 85730; 87631; 93005; 93041; 94760; 96365; 96367; 96368; 96375; 99285; J0282; J3475

== ENCOUNTER → 2022-05-03 | Outpatient (CLI) | payer MEDICARE, MEDICAID ==
[2022-05-03 18:50] LABS: BASO % 0.3 % (0.0-1.0); EOS % 0.3 % (0.0-3.0); HEMATOCRIT 41.8 % (36.0-47.0); HEMOGLOBIN 13.8 g/dl (12.0-15.5); LYMPH # 1.6 10^3/uL (1.5-5.0); MEAN CORPUSCULAR HEMOGLOBIN 28.4 pg (27.0-33.0); MONO # 0.8 10^3/uL (0.0-0.8); MONO % 9.2 % (2.0-8.0); NEUTROPHILS # 6.4 10^3/uL (1.5-8.5); NEUTROPHILS % 71.8 % (36.0-66.0); PLATELET COUNT, AUTOMATED 193 10^3/uL (150-450); RED BLOOD COUNT 4.86 10^6/uL (4.00-5.40)
[2022-05-03 19:43] LABS: ALBUMIN 3.5 GM/DL (3.2-5.2); BILIRUBIN,TOTAL 0.6 MG/DL (0.2-1.0); CALCIUM LEVEL 9.8 MG/DL (8.8-10.2); CREATININE FOR GFR 1.49 MG/DL (0.55-1.30); GLOMERULAR FILTRATION RATE 37.2 (>45); MAGNESIUM LEVEL 1.6 MG/DL (1.8-2.4); POTASSIUM SERUM 4.2 MEQ/L (3.5-5.1); TOTAL PROTEIN 6.6 GM/DL (6.4-8.2)
== END ==
LOC: M PLALAB 14:59
PROVIDERS: ATTEND Family Medicine
DX: I50.32 Chronic diastolic (congestive) heart failure (principal)

== ENCOUNTER → 2022-05-14 | Outpatient (CLI) | payer MEDICARE, MEDICAID | LOC: M PLAIMG 11:10 | PROVIDERS: ATTEND Otolaryngology | DX: H72.91 Unspecified perforation of tympanic membrane, right ear (principal); H74.91 Unspecified disorder of right middle ear and mastoid ==

== ENCOUNTER 2022-09-04 10:04 | Emergency (ER) | payer MEDICARE, MEDICAID ==
[2022-09-04 11:27] LABS: HEMATOCRIT 45.9 % (36.0-47.0); HEMOGLOBIN 14.8 g/dl (12.0-15.5); MEAN CORPUSCULAR HEMOGLOBIN 28.2 pg (27.0-33.0); MEAN CORPUSCULAR HGB CONC 32.2 g/dl (32.0-36.5); MEAN CORPUSCULAR VOLUME 87.6 fl (80.0-96.0); PLATELET COUNT, AUTOMATED 199 10^3/uL (150-450); RED BLOOD COUNT 5.24 10^6/uL (4.00-5.40); WHITE BLOOD COUNT 10.2 10^3/uL (4.0-10.0)
[2022-09-04 12:07] LABS: CALCIUM LEVEL 9.1 MG/DL (8.3-10.6); CREATININE FOR GFR 1.48 MG/DL (0.55-1.30); GLOMERULAR FILTRATION RATE 37.3 (>45); POTASSIUM SERUM 4.7 MMOL/L (3.5-5.1)
[2022-09-04] MEDS ORDERED: DIGOXIN INJ 0.5 MG/2 ML AMP IV ONE ×2 (14:50→16:10)
[2022-09-04] MEDS ORDERED: DIGO0.123 PO (16:49)
[2022-09-04 17:00] VITALS: BP 157/97
== END 2022-09-04 17:25 | disposition home or self-care (01) ==
LOC: M ED 10:04 → EDBD 10:04 → M ED 17:25
DX: I48.91 Unspecified atrial fibrillation (principal); R55 Syncope and collapse; R94.31 Abnormal electrocardiogram [ECG] [EKG]; I50.9 Heart failure, unspecified; N18.30 Chronic kidney disease, stage 3 unspecified; Z79.890 Hormone replacement therapy; Z79.899 Other long term (current) drug therapy; Z88.5 Allergy status to narcotic agent; Z88.8 Allergy status to other drugs, medicaments and biological substances
CPT/HCPCS: 70450; 80048; 85027; 93005; 96374; 96375; 99285; J1160

== ENCOUNTER → 2022-09-10 | Outpatient (CLI) | payer MEDICARE, MEDICAID ==
[~2022-09-10] MED LIST changes: +DIGO0.123 PO
== END ==
LOC: M WHC 08:05
PROVIDERS: ATTEND Family Medicine
DX: Z13.820 Encounter for screening for osteoporosis (principal); M85.80 Other specified disorders of bone density and structure, unspecified site; Z79.811 Long term (current) use of aromatase inhibitors

== ENCOUNTER → 2022-09-11 | Outpatient (CLI) | payer MEDICARE, MEDICAID ==
[2022-09-11 08:35] LABS: BASO % 0.8 % (0.0-1.0); EOS # 0.1 10^3/uL (0.0-0.5); EOS % 1.8 % (0.0-3.0); HEMATOCRIT 40.3 % (36.0-47.0); HEMOGLOBIN 13.1 g/dl (12.0-15.5); LYMPH # 1.2 10^3/uL (1.5-5.0); LYMPH % 24.6 % (24.0-44.0); MEAN CORPUSCULAR HEMOGLOBIN 28.7 pg (27.0-33.0); MEAN CORPUSCULAR HGB CONC 32.5 g/dl (32.0-36.5); MEAN CORPUSCULAR VOLUME 88.4 fl (80.0-96.0); MONO # 0.5 10^3/uL (0.0-0.8); MONO % 9.5 % (2.0-8.0); NEUTROPHILS # 3.1 10^3/uL (1.5-8.5); NEUTROPHILS % 62.9 % (36.0-66.0); PLATELET COUNT, AUTOMATED 163 10^3/uL (150-450); RED BLOOD COUNT 4.56 10^6/uL (4.00-5.40)
[2022-09-11 09:40] LABS: POTASSIUM SERUM 4.7 MMOL/L (3.5-5.1)
[2022-09-11 09:41] LABS: ALBUMIN 3.5 G/DL (3.2-5.2)
[2022-09-11 09:45] LABS: PTH INTACT 86.9 PG/ML (18.5-88.0)
[2022-09-11 09:46] LABS: CALCIUM LEVEL 9.3 MG/DL (8.3-10.6)
[2022-09-11 09:47] LABS: MAGNESIUM LEVEL 1.6 MG/DL (1.8-2.4)
[2022-09-11 09:48] LABS: BILIRUBIN,TOTAL 0.5 MG/DL (0.3-1.2); CHOLESTEROL RISK RATIO 2.84 (<5); CREATININE FOR GFR 1.29 MG/DL (0.55-1.30); FERRITIN 69.3 NG/ML (7.3-270.7); GLOMERULAR FILTRATION RATE 43.8 (>45); HDL CHOLESTEROL 52.4 MG/DL (>40); LDL CHOLESTEROL 71.6 MG/DL (<100); PHOSPHORUS LEVEL 3.5 MG/DL (2.4-5.1); TOTAL 25(OH) VITAMIN D 59.9 NG/ML (20.0-100.0)
[2022-09-11 09:49] LABS: THYROID STIMULATING HORMONE 2.279 uIU/ML (0.55-4.78)
[2022-09-11 09:50] LABS: FREE T4 1.13 NG/DL (0.89-1.76)
[2022-09-11 10:01] LABS: DIGOXIN LEVEL 0.5 NG/ML (0.8-2.0)
[2022-09-11 10:30] LABS: HEMOGLOBIN A1c 5.7 % (4.0-6.0)
== END ==
LOC: M LAB 07:57
PROVIDERS: ATTEND Family Medicine
DX: I48.91 Unspecified atrial fibrillation (principal); R55 Syncope and collapse; E55.9 Vitamin D deficiency, unspecified; R73.01 Impaired fasting glucose; E03.9 Hypothyroidism, unspecified

== ENCOUNTER 2022-10-25 07:47 | Emergency (ER) | payer MEDICARE, MEDICAID ==
[~2022-10-25] VITALS: Ht 177.8 cm; Wt 69.3 kg
[2022-10-25 07:48] VITALS: BP 170/60
== END 2022-10-25 10:54 | disposition home or self-care (01) ==
LOC: M ED 07:47
DX: S00.83XA Contusion of other part of head, initial encounter (principal); S01.511A Laceration without foreign body of lip, initial encounter; W01.0XXA Fall on same level from slipping, tripping and stumbling without subsequent striking against object, initial encounter; K57.90 Diverticulosis of intestine, part unspecified, without perforation or abscess without bleeding; E11.9 Type 2 diabetes mellitus without complications; K21.9 Gastro-esophageal reflux disease without esophagitis; N18.6 End stage renal disease; Z86.79 Personal history of other diseases of the circulatory system; Z79.01 Long term (current) use of anticoagulants; Z88.5 Allergy status to narcotic agent; Z88.6 Allergy status to analgesic agent; Y92.009 Unspecified place in unspecified non-institutional (private) residence as the place of occurrence of the external cause; Z79.52 Long term (current) use of systemic steroids; Z79.83 Long term (current) use of bisphosphonates; Z79.899 Other long term (current) drug therapy

== ENCOUNTER → 2022-11-26 | Outpatient (CLI) | payer MEDICARE, MEDICAID ==
[2022-11-26 09:19] LABS: BASO % 0.6 % (0.0-1.0); EOS # 0.1 10^3/uL (0.0-0.5); EOS % 1.4 % (0.0-3.0); HEMATOCRIT 43.4 % (36.0-47.0); HEMOGLOBIN 13.9 g/dl (12.0-15.5); LYMPH # 1.3 10^3/uL (1.5-5.0); LYMPH % 19.1 % (24.0-44.0); MEAN CORPUSCULAR HEMOGLOBIN 28.4 pg (27.0-33.0); MEAN CORPUSCULAR VOLUME 88.6 fl (80.0-96.0); MONO # 0.6 10^3/uL (0.0-0.8); NEUTROPHILS # 4.6 10^3/uL (1.5-8.5); NEUTROPHILS % 69.6 % (36.0-66.0); PLATELET COUNT, AUTOMATED 207 10^3/uL (150-450); WHITE BLOOD COUNT 6.6 10^3/uL (4.0-10.0)
[2022-11-26 09:39] LABS: DIGOXIN LEVEL 0.9 NG/ML (0.8-2.0)
[2022-11-26 09:44] LABS: ALBUMIN 3.3 G/DL (3.2-5.2); BILIRUBIN,TOTAL 0.5 MG/DL (0.3-1.2); CHOLESTEROL RISK RATIO 3.19 (<5); CREATININE FOR GFR 1.36 MG/DL (0.55-1.30); FERRITIN 83.3 NG/ML (7.3-270.7); FREE T4 1.13 NG/DL (0.89-1.76); GLOMERULAR FILTRATION RATE 41.2 (>45); HDL CHOLESTEROL 50.7 MG/DL (>40); LDL CHOLESTEROL 88.1 MG/DL (<100); MAGNESIUM LEVEL 1.9 MG/DL (1.8-2.4); PHOSPHORUS LEVEL 3.7 MG/DL (2.4-5.1); POTASSIUM SERUM 4.6 MMOL/L (3.5-5.1); PTH INTACT 55.6 PG/ML (18.5-88.0); THYROID STIMULATING HORMONE 2.098 uIU/ML (0.55-4.78); TOTAL PROTEIN 6.2 G/DL (5.7-8.2)
[2022-11-26 10:02] LABS: HEMOGLOBIN A1c 6.1 % (4.0-6.0)
== END ==
LOC: M LAB 08:12
PROVIDERS: ATTEND Family Medicine
DX: I48.0 Paroxysmal atrial fibrillation (principal); Z79.899 Other long term (current) drug therapy

== ENCOUNTER → 2023-02-14 | Outpatient (REF) | payer MEDICARE, MEDICAID, OTHER | LOC: M SFHCPLAZ 13:11 | PROVIDERS: ATTEND Family Medicine | DX: I48.0 Paroxysmal atrial fibrillation (principal); I50.32 Chronic diastolic (congestive) heart failure ==

== ENCOUNTER → 2023-05-14 | Outpatient (CLI) | payer MEDICARE, MEDICAID ==
[2023-05-14 10:57] LABS: BASO # 0.1 10^3/uL (0.0-0.2); BASO % 0.9 % (0.0-1.0); EOS # 0.1 10^3/uL (0.0-0.5); EOS % 1.5 % (0.0-3.0); HEMATOCRIT 42.7 % (36.0-47.0); HEMOGLOBIN 13.7 g/dl (12.0-15.5); LYMPH # 1.4 10^3/uL (1.5-5.0); MEAN CORPUSCULAR HEMOGLOBIN 28.2 pg (27.0-33.0); MEAN CORPUSCULAR HGB CONC 32.1 g/dl (32.0-36.5); MEAN CORPUSCULAR VOLUME 87.9 fl (80.0-96.0); MONO # 0.6 10^3/uL (0.0-0.8); MONO % 8.3 % (2.0-8.0); NEUTROPHILS # 4.8 10^3/uL (1.5-8.5); NEUTROPHILS % 69.2 % (36.0-66.0); PLATELET COUNT, AUTOMATED 175 10^3/uL (150-450); RED BLOOD COUNT 4.86 10^6/uL (4.00-5.40); WHITE BLOOD COUNT 6.9 10^3/uL (4.0-10.0)
[2023-05-14 11:29] LABS: ALBUMIN 3.5 G/DL (3.2-5.2); BILIRUBIN,TOTAL 0.5 MG/DL (0.3-1.2); CALCIUM LEVEL 9.5 MG/DL (8.3-10.6); CREATININE FOR GFR 1.29 MG/DL (0.55-1.30); GLOMERULAR FILTRATION RATE 43.8 (>45); MAGNESIUM LEVEL 1.8 MG/DL (1.8-2.4); POTASSIUM SERUM 5.4 MMOL/L (3.5-5.1); TOTAL PROTEIN 6.3 G/DL (5.7-8.2)
== END ==
LOC: M LAB 10:18
PROVIDERS: ATTEND Family Medicine
DX: I48.0 Paroxysmal atrial fibrillation (principal); I50.32 Chronic diastolic (congestive) heart failure

== ENCOUNTER 2023-07-30 10:25 | Emergency (ER) | payer MEDICARE, MEDICAID ==
[~2023-07-30] VITALS: Ht 175.3 cm; Wt 63.8 kg
[~2023-07-30 10:25] MED LIST changes: -OMEP-173; +OMEP-173 PO
[2023-07-30] MEDS ORDERED: NS 1,000 ML IV ONE (11:00)
[2023-07-30] MEDS ORDERED: LIDOCAINE 2% 5ML JELLY UROJET TOP ONE (11:30)
[2023-07-30 11:39] LABS: BASO % 0.6 % (0.0-1.0); EOS % 0.5 % (0.0-3.0); HEMATOCRIT 41.8 % (36.0-47.0); HEMOGLOBIN 13.3 g/dl (12.0-15.5); LYMPH # 1.2 10^3/uL (1.5-5.0); LYMPH % 18.7 % (24.0-44.0); MEAN CORPUSCULAR HEMOGLOBIN 28.1 pg (27.0-33.0); MEAN CORPUSCULAR HGB CONC 31.8 g/dl (32.0-36.5); MEAN CORPUSCULAR VOLUME 88.2 fl (80.0-96.0); MONO # 0.5 10^3/uL (0.0-0.8); MONO % 7.6 % (2.0-8.0); NEUTROPHILS # 4.6 10^3/uL (1.5-8.5); NEUTROPHILS % 72.4 % (36.0-66.0); PLATELET COUNT, AUTOMATED 179 10^3/uL (150-450); RED BLOOD COUNT 4.74 10^6/uL (4.00-5.40); WHITE BLOOD COUNT 6.3 10^3/uL (4.0-10.0)
[2023-07-30 11:56] LABS: ERYTHROCYTE SEDIMENTATION RATE 19 mm/hr (0-30)
[2023-07-30] MEDS ORDERED: GUAI100L31 PO (12:25)
[2023-07-30] MEDS ORDERED: ACET1TAB55 PO (12:25)
[2023-07-30] MEDS ORDERED: METO1TAB87 PO (12:25)
[2023-07-30] MEDS ORDERED: ELIQ5TAB PO (12:25)
[2023-07-30] MEDS ORDERED: MAGN64TASA PO (12:25)
[2023-07-30] MEDS ORDERED: TRIPOIN9 TOP (12:25)
[2023-07-30] MEDS ORDERED: HOME MED LIST COMPLETE! XX SCH (12:30)
[2023-07-30 13:01] LABS: LIPASE 36 U/L (12-53)
[2023-07-30 13:02] LABS: C REACTIVE PROTEIN QUANTITATIV < 0.40 MG/DL (<1.0)
[2023-07-30 13:03] LABS: CPK CREATINE PHOSPHOKINASE 36 U/L (34-145); DIGOXIN LEVEL < 0.1 NG/ML (0.8-2.0)
[2023-07-30 13:04] LABS: ALBUMIN 3.1 G/DL (3.2-5.2); ALKALINE PHOSPHATASE 48 U/L (46-116); ALT/SGPT 14 U/L (7.0-40); AST/SGOT 18 U/L (<34); BILIRUBIN,DIRECT 0.2 MG/DL (<0.4); BILIRUBIN,TOTAL 0.5 MG/DL (0.3-1.2); BLOOD UREA NITROGEN 27 MG/DL (9-23); CALCIUM LEVEL 9.4 MG/DL (8.3-10.6); CARBON DIOXIDE LEVEL 29 MMOL/L (20-31); CHLORIDE LEVEL 102 MMOL/L (98-107); CK-MB VALUE MASS < 1.0 NG/ML (<3.6); CREATININE FOR GFR 1.54 MG/DL (0.55-1.30); GLOMERULAR FILTRATION RATE 35.6 (>45); GLUCOSE, FASTING 98 MG/DL (74-106); MB/CK RELATIVE INDEX 2.77 (< OR =4); POTASSIUM SERUM 4.7 MMOL/L (3.5-5.1); SODIUM LEVEL 134 MMOL/L (136-145); TOTAL PROTEIN 5.6 G/DL (5.7-8.2)
[2023-07-30 13:05] LABS: THYROID STIMULATING HORMONE 0.734 uIU/ML (0.55-4.78)
[2023-07-30] MEDS ORDERED: cefTRIAXone SOD 1 GM in D5W MINI-BAG PLUS 50 ML IV ONE (13:25)
[2023-07-30] MEDS ORDERED: CEFD300C PO (14:11)
[2023-07-30 15:30] VITALS: BP 116/72; TEMP 97.6; O2SAT 100
== END 2023-07-30 15:43 | disposition home or self-care (01) ==
LOC: M ED 10:25
DX: N39.0 Urinary tract infection, site not specified (principal); M54.50 Low back pain, unspecified; N18.30 Chronic kidney disease, stage 3 unspecified; K21.9 Gastro-esophageal reflux disease without esophagitis; E03.9 Hypothyroidism, unspecified; Z79.01 Long term (current) use of anticoagulants; Z88.5 Allergy status to narcotic agent; Z88.6 Allergy status to analgesic agent; Z79.811 Long term (current) use of aromatase inhibitors; Z79.83 Long term (current) use of bisphosphonates; Z79.899 Other long term (current) drug therapy
CPT/HCPCS: 36415; 71045; 72072; 72110; 80048; 80076; 80162; 81001; 82550; 82553; 83605; 83690; 84443; 84484; 85025; 85652; 86140; 87086; 93005; 93041; 96361; 96365; 99285; J0696

== ENCOUNTER → 2023-08-19 | Outpatient (REF) | payer MEDICARE, MEDICAID ==
[~2023-08-19] MED LIST changes: +ACET1TAB55 PO; +CEFD300C PO; +ELIQ5TAB PO; +GUAI100L31 PO; +MAGN64TASA PO; +METO1TAB87 PO; +TRIPOIN9 TOP
[2023-08-19 12:02] LABS: AMORPHOUS SEDIMENT MODERATE (NEGATIVE); APPEARANCE, URINE TURBID (CLEAR); BACTERIA, URINE AUTO 3+ (NEGATIVE); BILIRUBIN, URINE AUTO NEGATIVE (NEGATIVE); BLOOD, URINE BLOOD 2+ (NEGATIVE); CALCIUM OXALATE CRYSTALS SMALL; COLOR, URINE AMBER (YELLOW); GLUCOSE, URINE (UA) AUTO NEGATIVE (NEGATIVE); KETONE, URINE AUTO NEGATIVE (NEGATIVE); LEUKOCYTE ESTERASE, URINE AUTO 2+ (NEGATIVE); NITRITE, URINE AUTO NEGATIVE (NEGATIVE); PROTEIN, URINE AUTO 1+ mg/dL (NEGATIVE); RBC, URINE AUTO 69 /HPF (0-3); SQUAMOUS EPITHELIAL CELL UR AU 2 /HPF (0-6); WBC, URINE AUTO 65 /HPF (0-3)
== END ==
LOC: M SMT 09:46
PROVIDERS: ATTEND Family Medicine
DX: R30.0 Dysuria (principal)

== ENCOUNTER → 2023-08-26 | Outpatient (REF) | payer MEDICARE, MEDICAID, OTHER | LOC: M SFHCPLAZ 12:36 | PROVIDERS: ATTEND Family Medicine | DX: Z12.11 Encounter for screening for malignant neoplasm of colon (principal) ==

== ENCOUNTER 2023-09-13 16:31 | Emergency (ER) | payer MEDICARE, MEDICAID ==
[~2023-09-13] VITALS: Ht 172.7 cm; Wt 61.8 kg
[2023-09-13 20:30] VITALS: TEMP 97.6
[2023-09-13 22:18] LABS: BASO % 0.3 % (0.0-1.0); EOS % 0.2 % (0.0-3.0); HEMATOCRIT 39.9 % (36.0-47.0); HEMOGLOBIN 13.2 g/dl (12.0-15.5); LYMPH % 10.3 % (24.0-44.0); MEAN CORPUSCULAR HEMOGLOBIN 28.7 pg (27.0-33.0); MEAN CORPUSCULAR HGB CONC 33.1 g/dl (32.0-36.5); MEAN CORPUSCULAR VOLUME 86.7 fl (80.0-96.0); MONO # 0.6 10^3/uL (0.0-0.8); MONO % 6.2 % (2.0-8.0); NEUTROPHILS # 8.4 10^3/uL (1.5-8.5); NEUTROPHILS % 82.8 % (36.0-66.0); PLATELET COUNT, AUTOMATED 180 10^3/uL (150-450); WHITE BLOOD COUNT 10.1 10^3/uL (4.0-10.0)
[2023-09-13] MEDS ORDERED: ISOVUE-370 76% 100ML VIAL As Ordered ONE (22:24)
[2023-09-13 22:48] LABS: CK-MB VALUE MASS 1.3 NG/ML (<3.6)
[2023-09-13 22:50] LABS: MB/CK RELATIVE INDEX 1.47 (< OR =4)
[2023-09-14 00:37] VITALS: BP 136/75; O2SAT 99
== END 2023-09-14 00:41 | disposition home or self-care (01) ==
LOC: M ED 16:31
DX: Z00.8 Encounter for other general examination (principal); T17.928A Food in respiratory tract, part unspecified causing other injury, initial encounter; E78.5 Hyperlipidemia, unspecified; N18.30 Chronic kidney disease, stage 3 unspecified
CPT/HCPCS: 36415; 70360; 71046; 71260; 80047; 82550; 82553; 84484; 85025; 93005; 99284; Q9967

== ENCOUNTER → 2023-10-11 | Outpatient (CLI) | payer MEDICARE, MEDICAID, OTHER ==
[2023-10-11 10:49] LABS: BASO % 0.6 % (0.0-1.0); EOS # 0.1 10^3/uL (0.0-0.5); EOS % 1.5 % (0.0-3.0); HEMATOCRIT 43.2 % (36.0-47.0); HEMOGLOBIN 13.8 g/dl (12.0-15.5); LYMPH % 19.6 % (24.0-44.0); MEAN CORPUSCULAR HEMOGLOBIN 28.2 pg (27.0-33.0); MEAN CORPUSCULAR HGB CONC 31.9 g/dl (32.0-36.5); MEAN CORPUSCULAR VOLUME 88.2 fl (80.0-96.0); MONO # 0.5 10^3/uL (0.0-0.8); NEUTROPHILS # 3.6 10^3/uL (1.5-8.5); NEUTROPHILS % 68.9 % (36.0-66.0); PLATELET COUNT, AUTOMATED 199 10^3/uL (150-450); WHITE BLOOD COUNT 5.2 10^3/uL (4.0-10.0)
[2023-10-11 11:06] LABS: ALBUMIN 3.3 G/DL (3.2-5.2); BILIRUBIN,TOTAL 0.3 MG/DL (0.3-1.2); CALCIUM LEVEL 9.2 MG/DL (8.3-10.6); CREATININE FOR GFR 1.19 MG/DL (0.55-1.30); GLOMERULAR FILTRATION RATE 47.9 (>45); POTASSIUM SERUM 5.1 MMOL/L (3.5-5.1); TOTAL PROTEIN 6.1 G/DL (5.7-8.2)
[2023-10-11 11:08] LABS: FREE T4 1.01 NG/DL (0.89-1.76); THYROID STIMULATING HORMONE 1.486 uIU/ML (0.55-4.78)
== END ==
LOC: M WUC 08:32
PROVIDERS: ATTEND Nurse Practitioner
DX: Z95.818 Presence of other cardiac implants and grafts (principal); I47.20 Ventricular tachycardia, unspecified; I48.91 Unspecified atrial fibrillation

== ENCOUNTER → 2023-12-10 | Outpatient (CLI) | payer MEDICARE, MEDICAID ==
[~2023-12-10] MED LIST changes: +BARIUM SULFATE 700 MG TABLET (E-Z-DISK) As Ordered ONE; +E-Z-PAQUE 96% w/w SUSP 176GM BTL As Ordered ONE; -MIRA1POW3 PO; +MIRA33506 PO; +VARIBAR NECTAR 40% w/v 240ML SUSP BTL As Ordered ONE; +VARIBAR PUDDING 40% w/v 230ML TUBE As Ordered ONE
== END ==
LOC: M RAD 11:40
PROVIDERS: ATTEND Physician Assistant
DX: R09.89 Other specified symptoms and signs involving the circulatory and respiratory systems (principal); K21.9 Gastro-esophageal reflux disease without esophagitis

== ENCOUNTER 2023-12-21 19:06 | Inpatient (IN) | payer MEDICARE, MEDICAID ==
[~2023-12-21] VITALS: Ht 172.7 cm; Wt 62.4 kg
[~2023-12-21 19:06] MED LIST changes: -BARIUM SULFATE 700 MG TABLET (E-Z-DISK) As Ordered ONE; -E-Z-PAQUE 96% w/w SUSP 176GM BTL As Ordered ONE; -VARIBAR NECTAR 40% w/v 240ML SUSP BTL As Ordered ONE; -VARIBAR PUDDING 40% w/v 230ML TUBE As Ordered ONE
[2023-12-21] MEDS: NS 500 ML IV ONE (19:30)
[2023-12-21 19:50] LABS: BASO % 0.4 % (0.0-1.0); EOS % 0.2 % (0.0-3.0); HEMATOCRIT 38.8 % (36.0-47.0); HEMOGLOBIN 12.9 g/dl (12.0-15.5); LYMPH # 1.7 10^3/uL (1.5-5.0); LYMPH % 19.4 % (24.0-44.0); MEAN CORPUSCULAR HEMOGLOBIN 28.7 pg (27.0-33.0); MEAN CORPUSCULAR HGB CONC 33.2 g/dl (32.0-36.5); MEAN CORPUSCULAR VOLUME 86.4 fl (80.0-96.0); MONO # 0.7 10^3/uL (0.0-0.8); NEUTROPHILS # 6.1 10^3/uL (1.5-8.5); NEUTROPHILS % 71.9 % (36.0-66.0); PLATELET COUNT, AUTOMATED 215 10^3/uL (150-450); RED BLOOD COUNT 4.49 10^6/uL (4.00-5.40); WHITE BLOOD COUNT 8.5 10^3/uL (4.0-10.0)
[2023-12-21 20:07] LABS: CPK CREATINE PHOSPHOKINASE 46 U/L (34-145)
[2023-12-21 20:13] LABS: BLOOD UREA NITROGEN 19 MG/DL (9-23); CALCIUM LEVEL 8.6 MG/DL (8.3-10.6); CARBON DIOXIDE LEVEL 28 MMOL/L (20-31); CHLORIDE LEVEL 99 MMOL/L (98-107); CK-MB VALUE MASS < 1.0 NG/ML (<3.6); CREATININE FOR GFR 1.18 MG/DL (0.55-1.30); GLOMERULAR FILTRATION RATE 48.3 (>45); GLUCOSE, FASTING 99 MG/DL (74-106); MAGNESIUM LEVEL 1.9 MG/DL (1.8-2.4); MB/CK RELATIVE INDEX 2.17 (< OR =4); PHOSPHORUS LEVEL 3.4 MG/DL (2.4-5.1); POTASSIUM SERUM 4.2 MMOL/L (3.5-5.1); SODIUM LEVEL 131 MMOL/L (136-145); THYROID STIMULATING HORMONE 1.822 uIU/ML (0.55-4.78)
[2023-12-21] MEDS ORDERED: ISOVUE-370 76% 100ML VIAL As Ordered ONE (20:28)
[2023-12-21 20:33] LABS: INR 1.4; PARTIAL THROMBOPLASTIN TIME 27.6 SECONDS (24.8-34.2); PROTHROMBIN TIME 16.7 SECONDS (12.5-14.5)
[2023-12-21] MEDS: PANTOPRAZOLE 40MG VIAL IV ONE (21:01)
[2023-12-21 21:15] LABS: CK-MB VALUE MASS < 1.0 NG/ML (<3.6); CPK CREATINE PHOSPHOKINASE 42 U/L (34-145); MB/CK RELATIVE INDEX 2.38 (< OR =4)
[2023-12-21] MEDS ORDERED: FLON1SPR NARES (22:55)
[2023-12-21] MEDS ORDERED: HOME MED LIST COMPLETE! XX SCH (23:00)
[2023-12-22] VITALS (10 sets, daily range): BP systolic 98–129; BP diastolic 60–75; TEMP 97.3–98.1; O2SAT 82–100
[2023-12-22] MEDS: DOCUSATE SODIUM 100MG CAPSULE PO SCH (00:31)
[2023-12-22] MEDS: NS 1,000 ML IV SCH (00:31)
[2023-12-22 00:53] LABS: HEMATOCRIT 37.1 % (36.0-47.0); HEMOGLOBIN 12.4 g/dl (12.0-15.5); MEAN CORPUSCULAR HEMOGLOBIN 28.5 pg (27.0-33.0); MEAN CORPUSCULAR HGB CONC 33.4 g/dl (32.0-36.5); MEAN CORPUSCULAR VOLUME 85.3 fl (80.0-96.0); PLATELET COUNT, AUTOMATED 196 10^3/uL (150-450); RED BLOOD COUNT 4.35 10^6/uL (4.00-5.40); WHITE BLOOD COUNT 8.7 10^3/uL (4.0-10.0)
[2023-12-22 04:45] LABS: HEMATOCRIT 37.8 % (36.0-47.0); HEMOGLOBIN 12.6 g/dl (12.0-15.5); MEAN CORPUSCULAR HEMOGLOBIN 28.9 pg (27.0-33.0); MEAN CORPUSCULAR HGB CONC 33.3 g/dl (32.0-36.5); MEAN CORPUSCULAR VOLUME 86.7 fl (80.0-96.0); PLATELET COUNT, AUTOMATED 182 10^3/uL (150-450); RED BLOOD COUNT 4.36 10^6/uL (4.00-5.40); WHITE BLOOD COUNT 8.6 10^3/uL (4.0-10.0)
[2023-12-22 05:12] LABS: CALCIUM LEVEL 8.2 MG/DL (8.3-10.6); CREATININE FOR GFR 1.04 MG/DL (0.55-1.30); GLOMERULAR FILTRATION RATE 55.9 (>45); POTASSIUM SERUM 3.9 MMOL/L (3.5-5.1)
[2023-12-22 05:14] LABS: INR 1.24; PROTHROMBIN TIME 15.2 SECONDS (12.5-14.5)
[2023-12-22] MEDS: LACTULOSE 20GM/30ML SYRUP UDC PO SCH (08:58)
[2023-12-22] MEDS: APIXABAN 5 MG TAB (ELIQUIS) PO SCH (08:59)
[2023-12-22] MEDS: LORazepam 0.5 MG TAB PO SCH (08:59)
[2023-12-22] MEDS: OMEPRAZOLE 20MG CAP PO SCH (08:59)
[2023-12-22] MEDS ORDERED: CALCIUM/VITAMIN D 500 MG TAB PO SCH (09:00)
[2023-12-22] MEDS: METOPROLOL TART 25 MG TABLET PO SCH (09:06)
[2023-12-22] MEDS: CALCIUM/VITAMIN D 500 MG TAB PO SCH (09:46)
[2023-12-22] MEDS: MAGNESIUM GLUCONATE 500 MG TAB PO SCH (09:46)
[2023-12-22] MEDS: FLUTICASONE PROP 0.05% NASAL SPRAY 16 GM (FLONASE) NARES SCH (09:46)
[2023-12-22] MEDS: LEVOTHYROXINE 25MCG TABLET (0.025MG) PO SCH (09:46)
[2023-12-22] MEDS: FLEET OIL RETENTION ENEMA PR SCH (10:50)
[2023-12-22] MEDS: METOPROLOL TART 25 MG TABLET PO ONE (11:49)
[2023-12-22] MEDS: DIGOXIN 0.25 MG TAB PO ONE (12:05)
[2023-12-22] MEDS: ZENPEP PO SCH (12:06)
[2023-12-22] MEDS: MIRALAX *UNIT DOSE* 17GM PACKET PO SCH (15:07)
[2023-12-22] MEDS: ACETAMINOPHEN TAB 650MG DOSE (2X325MG) PO PRN (15:07)
[2023-12-22] MEDS: SIMVASTATIN 20 MG TAB PO SCH (20:04)
[2023-12-22] MEDS: METOPROLOL TART 50 MG TAB PO SCH (20:05)
[2023-12-22] MEDS: LORATADINE 10 MG TAB PO SCH (20:05)
[2023-12-23] VITALS (27 sets, daily range): BP systolic 74–119; BP diastolic 44–69; TEMP 97–98.2; O2SAT 96–100
[2023-12-23] MEDS ORDERED: METOPROLOL 5 MG/5 ML VIAL As Ordered ONE (06:24)
[2023-12-23] MEDS: METOPROLOL 5 MG/5 ML VIAL IV SCH (06:27)
[2023-12-23 06:32] LABS: INR 1.28; PROTHROMBIN TIME 15.6 SECONDS (12.5-14.5)
[2023-12-23 08:17] LABS: HEMATOCRIT 39.8 % (36.0-47.0); HEMOGLOBIN 12.9 g/dl (12.0-15.5); MEAN CORPUSCULAR HEMOGLOBIN 28.5 pg (27.0-33.0); MEAN CORPUSCULAR HGB CONC 32.4 g/dl (32.0-36.5); MEAN CORPUSCULAR VOLUME 87.9 fl (80.0-96.0); PLATELET COUNT, AUTOMATED 179 10^3/uL (150-450); RED BLOOD COUNT 4.53 10^6/uL (4.00-5.40)
[2023-12-23] MEDS: LR 1,000 ML IV ONE ×2 (08:23→09:35)
[2023-12-23] MEDS: MIDODRINE 5 MG TAB PO SCH (08:27)
[2023-12-23 08:42] LABS: ALBUMIN 2.6 G/DL (3.2-5.2); BILIRUBIN,TOTAL 0.4 MG/DL (0.3-1.2); CALCIUM LEVEL 8.6 MG/DL (8.3-10.6); CREATININE FOR GFR 1.05 MG/DL (0.55-1.30); GLOMERULAR FILTRATION RATE 55.3 (>45); POTASSIUM SERUM 4.4 MMOL/L (3.5-5.1); TOTAL PROTEIN 5.4 G/DL (5.7-8.2)
[2023-12-23] MEDS: DIGOXIN 0.125 MG TAB PO ONE ×2 (08:57→17:48)
[2023-12-23 10:19] LABS: HEMOGLOBIN 12.1 g/dl (12.0-15.5); MEAN CORPUSCULAR HEMOGLOBIN 28.9 pg (27.0-33.0); MEAN CORPUSCULAR HGB CONC 32.7 g/dl (32.0-36.5); MEAN CORPUSCULAR VOLUME 88.5 fl (80.0-96.0); PLATELET COUNT, AUTOMATED 176 10^3/uL (150-450); RED BLOOD COUNT 4.18 10^6/uL (4.00-5.40); WHITE BLOOD COUNT 9.1 10^3/uL (4.0-10.0)
[2023-12-23 10:59] LABS: BLOOD UREA NITROGEN 16 MG/DL (9-23); CALCIUM LEVEL 8.3 MG/DL (8.3-10.6); CARBON DIOXIDE LEVEL 24 MMOL/L (20-31); CHLORIDE LEVEL 103 MMOL/L (98-107); CREATININE FOR GFR 0.96 MG/DL (0.55-1.30); GLOMERULAR FILTRATION RATE > 60.0 (>45); GLUCOSE, FASTING 110 MG/DL (74-106); MAGNESIUM LEVEL 1.7 MG/DL (1.8-2.4); POTASSIUM SERUM 4.5 MMOL/L (3.5-5.1); SODIUM LEVEL 132 MMOL/L (136-145)
[2023-12-23] MEDS: LR 1,000 ML IV SCH (11:15)
[2023-12-23] MEDS: CALCIUM GLUCONATE 1,000 MG in D5W MINI-BAG PLUS 100 ML IV ONE (11:23)
[2023-12-23] MEDS: MAG SULF 1GM/100ML (MAG RUN) 1 GM in IV 1 EA IV SCH (12:19)
[2023-12-23] MEDS ORDERED: DIGOXIN 0.25 MG TAB PO ONE ×2 (14:00→17:35)
[2023-12-23] MEDS ORDERED: DIGOXIN 0.125 MG TAB PO ONE (20:00)
[2023-12-23] MEDS: DIGOXIN 0.25 MG TAB PO ONE (22:30)
[2023-12-24] VITALS (8 sets, daily range): BP systolic 92–147; BP diastolic 50–68; TEMP 96.8–97.8; O2SAT 96–100
[2023-12-24] MEDS: DIGOXIN 0.125 MG TAB PO ONE (05:06)
[2023-12-24 05:11] LABS: BASO % 0.5 % (0.0-1.0); EOS # 0.2 10^3/uL (0.0-0.5); EOS % 1.7 % (0.0-3.0); HEMATOCRIT 35.4 % (36.0-47.0); HEMOGLOBIN 11.7 g/dl (12.0-15.5); LYMPH # 1.6 10^3/uL (1.5-5.0); LYMPH % 18.7 % (24.0-44.0); MEAN CORPUSCULAR HEMOGLOBIN 28.5 pg (27.0-33.0); MEAN CORPUSCULAR HGB CONC 33.1 g/dl (32.0-36.5); MEAN CORPUSCULAR VOLUME 86.3 fl (80.0-96.0); MONO # 0.7 10^3/uL (0.0-0.8); MONO % 8.5 % (2.0-8.0); NEUTROPHILS # 6.1 10^3/uL (1.5-8.5); NEUTROPHILS % 70.3 % (36.0-66.0); PLATELET COUNT, AUTOMATED 196 10^3/uL (150-450); WHITE BLOOD COUNT 8.7 10^3/uL (4.0-10.0)
[2023-12-24 06:04] LABS: BLOOD UREA NITROGEN 13 MG/DL (9-23); CALCIUM LEVEL 7.8 MG/DL (8.3-10.6); CARBON DIOXIDE LEVEL 29 MMOL/L (20-31); CHLORIDE LEVEL 100 MMOL/L (98-107); CREATININE FOR GFR 0.92 MG/DL (0.55-1.30); GLOMERULAR FILTRATION RATE > 60.0 (>45); GLUCOSE, FASTING 108 MG/DL (74-106); MAGNESIUM LEVEL 1.7 MG/DL (1.8-2.4); PHOSPHORUS LEVEL 3.3 MG/DL (2.4-5.1); POTASSIUM SERUM 4.6 MMOL/L (3.5-5.1); SODIUM LEVEL 130 MMOL/L (136-145)
[2023-12-24] MEDS: MAG SULF 1GM/100ML (MAG RUN) 1 GM in IV 1 EA IV SCH (06:18)
[2023-12-24] MEDS: METOPROLOL TART 12.5 MG PER 1/2 TAB PO SCH (08:13)
[2023-12-24] MEDS: MAGNESIUM OXIDE 400MG TAB (MAG-OX) PO SCH (08:14)
[2023-12-24] MEDS: METOPROLOL TART 12.5 MG PER 1/2 TAB PO ONE (08:18)
[2023-12-25] VITALS (9 sets, daily range): BP systolic 76–116; BP diastolic 47–88; TEMP 96.8–98; O2SAT 96–100
[2023-12-25 04:28] LABS: HEMATOCRIT 36.4 % (36.0-47.0); HEMOGLOBIN 12.1 g/dl (12.0-15.5); MEAN CORPUSCULAR HEMOGLOBIN 28.3 pg (27.0-33.0); MEAN CORPUSCULAR HGB CONC 33.2 g/dl (32.0-36.5); MEAN CORPUSCULAR VOLUME 85.2 fl (80.0-96.0); PLATELET COUNT, AUTOMATED 218 10^3/uL (150-450); RED BLOOD COUNT 4.27 10^6/uL (4.00-5.40)
[2023-12-25 04:52] LABS: ALBUMIN 2.4 G/DL (3.2-5.2); CALCIUM LEVEL 7.8 MG/DL (8.3-10.6); CREATININE FOR GFR 1.23 MG/DL (0.55-1.30); GLOMERULAR FILTRATION RATE 46.1 (>45); MAGNESIUM LEVEL 1.8 MG/DL (1.8-2.4); PHOSPHORUS LEVEL 3.8 MG/DL (2.4-5.1); POTASSIUM SERUM 4.8 MMOL/L (3.5-5.1)
[2023-12-25] MEDS ORDERED: DIGOXIN 0.25 MG TAB PO SCH ×2 (09:00)
[2023-12-25] MEDS: DIGOXIN 0.25 MG TAB PO SCH (11:07)
[2023-12-25] MEDS: NS 500 ML IV ONE (22:29)
[2023-12-26] VITALS (36 sets, daily range): BP systolic 78–134; BP diastolic 48–94; TEMP 96.9–97.9; O2SAT 78–99
[2023-12-26] MEDS: METOPROLOL 5 MG/5 ML VIAL IV STA ×2 (03:13→03:50)
[2023-12-26] MEDS: dilTIAZem 25MG/5ML VIAL IV STA (03:54)
[2023-12-26] MEDS: diltiaZEM 125 MG in NS 100 ML IV SCH (04:50)
[2023-12-26 07:01] LABS: HEMATOCRIT 34.4 % (36.0-47.0); HEMOGLOBIN 11.3 g/dl (12.0-15.5); MEAN CORPUSCULAR HEMOGLOBIN 28.5 pg (27.0-33.0); MEAN CORPUSCULAR HGB CONC 32.8 g/dl (32.0-36.5); MEAN CORPUSCULAR VOLUME 86.6 fl (80.0-96.0); PLATELET COUNT, AUTOMATED 214 10^3/uL (150-450); RED BLOOD COUNT 3.97 10^6/uL (4.00-5.40); WHITE BLOOD COUNT 6.6 10^3/uL (4.0-10.0)
[2023-12-26 07:33] LABS: CALCIUM LEVEL 8.2 MG/DL (8.3-10.6); CREATININE FOR GFR 1.28 MG/DL (0.55-1.30); MAGNESIUM LEVEL 1.9 MG/DL (1.8-2.4); POTASSIUM SERUM 4.8 MMOL/L (3.5-5.1)
[2023-12-26] MEDS ORDERED: PHENYLEPHRINE HCL INJ 50 MG in D5W 495 ML IV SCH (09:00)
[2023-12-26] MEDS: METOPROLOL TART 25 MG TABLET PO SCH ×2 (09:30→20:09)
[2023-12-26] MEDS: MAG SULF 1GM/100ML (MAG RUN) 1 GM in IV 1 EA IV ONE (11:04)
[2023-12-26] MEDS: AMIODARONE HCL 150 MG in IV 1 EA IV ONE ×2 (11:24→11:39)
[2023-12-27] VITALS (17 sets, daily range): BP systolic 100–153; BP diastolic 53–96; TEMP 96.7–97.6; O2SAT 95–99
[2023-12-27 05:18] LABS: CALCIUM LEVEL 8.6 MG/DL (8.3-10.6); CREATININE FOR GFR 1.2 MG/DL (0.55-1.30); GLOMERULAR FILTRATION RATE 47.4 (>45); MAGNESIUM LEVEL 1.7 MG/DL (1.8-2.4); POTASSIUM SERUM 4.3 MMOL/L (3.5-5.1)
[2023-12-27] MEDS: MAG SULF 1GM/100ML (MAG RUN) 1 GM in IV 1 EA IV ONE (05:42)
[2023-12-27] MEDS: MIDODRINE 5 MG TAB PO SCH (08:36)
[2023-12-27] MEDS: AMIODARONE HCL 150 MG in IV 1 EA IV STA (15:00)
[2023-12-27] MEDS: AMIODARONE 100MG TABLET (PACERONE) PO SCH (20:10)
[2023-12-28] VITALS (13 sets, daily range): BP systolic 94–137; BP diastolic 53–87; TEMP 97.4–98; O2SAT 94–99
[2023-12-28 00:46] LABS: ALBUMIN 2.1 G/DL (3.2-5.2); BILIRUBIN,TOTAL 0.2 MG/DL (0.3-1.2); CALCIUM LEVEL 8.4 MG/DL (8.3-10.6); CREATININE FOR GFR 0.99 MG/DL (0.55-1.30); GLOMERULAR FILTRATION RATE 59.2 (>45); TOTAL PROTEIN 4.7 G/DL (5.7-8.2)
[2023-12-28] MEDS: MAG SULF 1GM/100ML (MAG RUN) 1 GM in IV 1 EA IV ONE (01:37)
[2023-12-28 05:42] LABS: BLOOD UREA NITROGEN 18 MG/DL (9-23); CALCIUM LEVEL 8.2 MG/DL (8.3-10.6); CARBON DIOXIDE LEVEL 32 MMOL/L (20-31); CHLORIDE LEVEL 100 MMOL/L (98-107); CREATININE FOR GFR 0.97 MG/DL (0.55-1.30); GLOMERULAR FILTRATION RATE > 60.0 (>45); GLUCOSE, FASTING 80 MG/DL (74-106); MAGNESIUM LEVEL 2.1 MG/DL (1.8-2.4); POTASSIUM SERUM 4.3 MMOL/L (3.5-5.1); SODIUM LEVEL 134 MMOL/L (136-145)
[2023-12-28] MEDS: AMIODARONE 200 MG TAB (PACERONE) PO SCH ×2 (08:13→14:54)
[2023-12-29 03:38] VITALS: BP 102/55; TEMP 98.4; O2SAT 97
[2023-12-29 06:22] LABS: CALCIUM LEVEL 8.3 MG/DL (8.3-10.6); CREATININE FOR GFR 1.05 MG/DL (0.55-1.30); GLOMERULAR FILTRATION RATE 55.3 (>45); MAGNESIUM LEVEL 1.8 MG/DL (1.8-2.4); POTASSIUM SERUM 4.5 MMOL/L (3.5-5.1)
[2023-12-29 07:46] VITALS: BP 112/57; TEMP 98; O2SAT 98
[2023-12-29] MEDS ORDERED: AMIO200T49 PO (11:24)
== END 2023-12-29 13:57 | disposition home or self-care (01) | DRG 309 ==
LOC: EDBD 19:06 → M ED 19:06 → M ED INP 23:28 → ENRESERV 12-22 01:03 → M MSPAV 12-22 01:46 → M ICU 12-23 06:20 → M PCU 12-28 22:45
PROVIDERS: ADMIT Internal Medicine; ATTEND Student in an Organized Health Care Education/Training Program
PROC: B246ZZZ Ultrasonography of Right and Left Heart (ICD-10-PCS; principal; 2023-12-25)
DX: I48.91 Unspecified atrial fibrillation (principal); E87.1 Hypo-osmolality and hyponatremia; F79 Unspecified intellectual disabilities; R26.89 Other abnormalities of gait and mobility; R55 Syncope and collapse; K44.9 Diaphragmatic hernia without obstruction or gangrene; F80.1 Expressive language disorder; E55.9 Vitamin D deficiency, unspecified; N18.30 Chronic kidney disease, stage 3 unspecified; I95.1 Orthostatic hypotension; K59.00 Constipation, unspecified; E83.42 Hypomagnesemia; E03.9 Hypothyroidism, unspecified; K21.9 Gastro-esophageal reflux disease without esophagitis; E78.5 Hyperlipidemia, unspecified; F41.9 Anxiety disorder, unspecified; Z11.52 Encounter for screening for COVID-19; Z79.01 Long term (current) use of anticoagulants; Z79.899 Other long term (current) drug therapy; Z79.890 Hormone replacement therapy; Z88.5 Allergy status to narcotic agent; Z88.6 Allergy status to analgesic agent

== ENCOUNTER → 2024-01-09 | Outpatient (REF) | payer MEDICARE, MEDICAID, OTHER ==
[~2024-01-09] MED LIST changes: +AMIO200T49 PO; +FLON1SPR NARES
== END ==
LOC: M SFHCPLAZ 15:48
PROVIDERS: ATTEND Family Medicine
DX: E03.9 Hypothyroidism, unspecified (principal); E78.5 Hyperlipidemia, unspecified; N18.31 Chronic kidney disease, stage 3a; E55.9 Vitamin D deficiency, unspecified; R73.01 Impaired fasting glucose; I48.0 Paroxysmal atrial fibrillation

== ENCOUNTER → 2024-01-16 | Outpatient (CLI) | payer MEDICARE, OTHER, MEDICAID ==
[2024-01-16 11:19] LABS: BASO % 0.7 % (0.0-1.0); EOS # 0.1 10^3/uL (0.0-0.5); EOS % 1.3 % (0.0-3.0); HEMATOCRIT 40.2 % (36.0-47.0); LYMPH # 0.9 10^3/uL (1.5-5.0); MEAN CORPUSCULAR HEMOGLOBIN 28.3 pg (27.0-33.0); MEAN CORPUSCULAR HGB CONC 32.3 g/dl (32.0-36.5); MEAN CORPUSCULAR VOLUME 87.6 fl (80.0-96.0); MONO # 0.4 10^3/uL (0.0-0.8); MONO % 7.6 % (2.0-8.0); NEUTROPHILS # 3.2 10^3/uL (1.5-8.5); NEUTROPHILS % 70.2 % (36.0-66.0); PLATELET COUNT, AUTOMATED 239 10^3/uL (150-450); RED BLOOD COUNT 4.59 10^6/uL (4.00-5.40); WHITE BLOOD COUNT 4.6 10^3/uL (4.0-10.0)
[2024-01-16 11:37] LABS: ALBUMIN 3.3 G/DL (3.2-5.2); BILIRUBIN,TOTAL 0.5 MG/DL (0.3-1.2); CHOLESTEROL RISK RATIO 2.4 (<5); CREATININE FOR GFR 1.12 MG/DL (0.55-1.30); GLOMERULAR FILTRATION RATE 51.3 (>45); HDL CHOLESTEROL 70.7 MG/DL (>40); LDL CHOLESTEROL 76.5 MG/DL (<100); MAGNESIUM LEVEL 1.7 MG/DL (1.8-2.4); NON-HDL-C 99.3 MG/DL; POTASSIUM SERUM 4.4 MMOL/L (3.5-5.1); TOTAL PROTEIN 6.2 G/DL (5.7-8.2)
[2024-01-16 11:38] LABS: PTH INTACT 83.3 PG/ML (18.5-88.0); THYROID STIMULATING HORMONE 3.636 uIU/ML (0.55-4.78); TOTAL 25(OH) VITAMIN D 65.8 NG/ML (20.0-100.0)
[2024-01-16 11:39] LABS: FERRITIN 184.4 NG/ML (7.3-270.7); FREE T4 0.99 NG/DL (0.89-1.76)
== END ==
LOC: M LAB 09:55
PROVIDERS: ATTEND Family Medicine
DX: I48.0 Paroxysmal atrial fibrillation (principal); E78.00 Pure hypercholesterolemia, unspecified

== ENCOUNTER → 2024-01-17 | Outpatient (REF) | payer MEDICARE, MEDICAID, OTHER | LOC: M SFHCPLAZ 12:49 | PROVIDERS: ATTEND Family Medicine | DX: E03.9 Hypothyroidism, unspecified (principal); N18.31 Chronic kidney disease, stage 3a; E55.9 Vitamin D deficiency, unspecified; E78.5 Hyperlipidemia, unspecified; I48.0 Paroxysmal atrial fibrillation; R73.01 Impaired fasting glucose; I50.20 Unspecified systolic (congestive) heart failure ==

== ENCOUNTER → 2024-03-05 | Outpatient (CLI) | payer MEDICARE, MEDICAID | LOC: M WHC 14:58 | PROVIDERS: ATTEND Nurse Practitioner Family | DX: Z01.419 Encounter for gynecological examination (general) (routine) without abnormal findings (principal); Z12.31 Encounter for screening mammogram for malignant neoplasm of breast; R92.333 Mammographic heterogeneous density, bilateral breasts; N95.1 Menopausal and female climacteric states; Z79.899 Other long term (current) drug therapy; Z88.5 Allergy status to narcotic agent; Z88.6 Allergy status to analgesic agent | CPT/HCPCS: 77067; G0101 ==

== ENCOUNTER → 2024-05-07 | Outpatient (CLI) | payer MEDICARE, MEDICAID ==
[2024-05-07 08:33] LABS: BASO % 0.6 % (0.0-1.0); EOS % 0.6 % (0.0-3.0); HEMATOCRIT 39.7 % (36.0-47.0); HEMOGLOBIN 13.4 g/dl (12.0-15.5); LYMPH # 0.8 10^3/uL (1.5-5.0); LYMPH % 15.4 % (24.0-44.0); MEAN CORPUSCULAR HEMOGLOBIN 29.3 pg (27.0-33.0); MEAN CORPUSCULAR HGB CONC 33.8 g/dl (32.0-36.5); MEAN CORPUSCULAR VOLUME 86.7 fl (80.0-96.0); MONO # 0.4 10^3/uL (0.0-0.8); MONO % 7.9 % (2.0-8.0); NEUTROPHILS % 75.3 % (36.0-66.0); PLATELET COUNT, AUTOMATED 200 10^3/uL (150-450); RED BLOOD COUNT 4.58 10^6/uL (4.00-5.40); WHITE BLOOD COUNT 5.3 10^3/uL (4.0-10.0)
[2024-05-07 08:57] LABS: ALBUMIN 3.3 G/DL (3.2-5.2); BILIRUBIN,TOTAL 0.5 MG/DL (0.3-1.2); CALCIUM LEVEL 9.6 MG/DL (8.3-10.6); CREATININE FOR GFR 1.33 MG/DL (0.55-1.30); GLOMERULAR FILTRATION RATE 42.1 (>45); MAGNESIUM LEVEL 1.8 MG/DL (1.8-2.4); POTASSIUM SERUM 4.1 MMOL/L (3.5-5.1)
[2024-05-07 08:58] LABS: FREE T4 0.93 NG/DL (0.89-1.76); THYROID STIMULATING HORMONE 6.139 uIU/ML (0.55-4.78)
[2024-05-07 08:59] LABS: TOTAL 25(OH) VITAMIN D 70.4 NG/ML (20.0-100.0)
[2024-05-07 09:14] LABS: HEMOGLOBIN A1c 5.6 % (4.0-6.0)
== END ==
LOC: M LAB 08:02
PROVIDERS: ATTEND Family Medicine
DX: R73.01 Impaired fasting glucose (principal); E78.5 Hyperlipidemia, unspecified; E03.9 Hypothyroidism, unspecified; E55.9 Vitamin D deficiency, unspecified; N18.31 Chronic kidney disease, stage 3a; I48.0 Paroxysmal atrial fibrillation; I50.20 Unspecified systolic (congestive) heart failure

== ENCOUNTER → 2024-05-13 | Outpatient (REF) | payer MEDICARE, MEDICAID | LOC: M SFHCPLAZ 14:55 | PROVIDERS: ATTEND Physician Assistant Medical | DX: R30.0 Dysuria (principal) ==

== ENCOUNTER → 2024-06-04 | Outpatient (REF) | payer MEDICARE | LOC: M SFHCPLAZ 13:38 | PROVIDERS: ATTEND Family Medicine | DX: E03.9 Hypothyroidism, unspecified (principal); N18.31 Chronic kidney disease, stage 3a; E55.9 Vitamin D deficiency, unspecified; E78.5 Hyperlipidemia, unspecified; I48.0 Paroxysmal atrial fibrillation; R73.01 Impaired fasting glucose; I50.20 Unspecified systolic (congestive) heart failure ==

== ENCOUNTER 2024-07-04 19:47 | Inpatient (IN) | payer MEDICARE, MEDICAID ==
[~2024-07-04] VITALS: Ht 165.1 cm; Wt 50.3 kg
[2024-07-04] MEDS: SERTRALINE HCL 50 MG TAB PO SCH (21:00)
[2024-07-04 21:19] LABS: BASO % 0.2 % (0.0-1.0); EOS % 0.1 % (0.0-3.0); HEMOGLOBIN 14.2 g/dl (12.0-15.5); LYMPH # 0.5 10^3/uL (1.5-5.0); LYMPH % 3.9 % (24.0-44.0); MEAN CORPUSCULAR HGB CONC 33.8 g/dl (32.0-36.5); MEAN CORPUSCULAR VOLUME 88.6 fl (80.0-96.0); MONO # 0.8 10^3/uL (0.0-0.8); MONO % 5.5 % (2.0-8.0); NEUTROPHILS # 12.5 10^3/uL (1.5-8.5); PLATELET COUNT, AUTOMATED 181 10^3/uL (150-450); RED BLOOD COUNT 4.74 10^6/uL (4.00-5.40); WHITE BLOOD COUNT 13.8 10^3/uL (4.0-10.0)
[2024-07-04 21:43] LABS: ETHYL ALCOHOL (ETHANOL) < 0.003 % (0.000-0.010)
[2024-07-04 21:47] LABS: THYROID STIMULATING HORMONE 14.369 uIU/ML (0.55-4.78)
[2024-07-04 21:48] LABS: ALBUMIN 3.7 G/DL (3.2-5.2); ALKALINE PHOSPHATASE 56 U/L (46-116); ALT/SGPT 93 U/L (7.0-40); AST/SGOT 92 U/L (<34); BILIRUBIN,DIRECT < 0.1 MG/DL (<0.4); BILIRUBIN,TOTAL 0.4 MG/DL (0.3-1.2); BLOOD UREA NITROGEN 26 MG/DL (9-23); CALCIUM LEVEL 10.1 MG/DL (8.3-10.6); CARBON DIOXIDE LEVEL 30 MMOL/L (20-31); CHLORIDE LEVEL 97 MMOL/L (98-107); CK-MB VALUE MASS 2.2 NG/ML (<3.6); CPK CREATINE PHOSPHOKINASE 166 U/L (34-145); CREATININE FOR GFR 1.42 MG/DL (0.55-1.30); GLUCOSE, FASTING 105 MG/DL (74-106); MB/CK RELATIVE INDEX 1.32 (< OR =4); SODIUM LEVEL 128 MMOL/L (136-145)
[2024-07-04 23:01] LABS: CK-MB VALUE MASS 1.8 NG/ML (<3.6)
[2024-07-04 23:02] LABS: AMPHETAMINES LEVEL URINE NEGATIVE (NEGATIVE); BARBITURATES URINE NEGATIVE (NEGATIVE); BENZODIAZEPINES URINE NEGATIVE (NEGATIVE); CANNABINOIDS URINE NEGATIVE (NEGATIVE); COCAINE METABOLITE URINE NEGATIVE (NEGATIVE); METHADONE URINE NEGATIVE (NEGATIVE); OPIATES URINE NEGATIVE (NEGATIVE); PHENCYCLIDINE URINE NEGATIVE (NEGATIVE)
[2024-07-04 23:06] LABS: MB/CK RELATIVE INDEX 1.28 (< OR =4)
[2024-07-05] MEDS ORDERED: AMIO200T37 PO (00:53)
[2024-07-05] MEDS ORDERED: SERT-141 PO (00:54)
[2024-07-05] MEDS ORDERED: MED REC IN PROGRESS XX SCH (01:10)
[2024-07-05] MEDS ORDERED: MOM 30ML SUSPENSION UDC PO PRN (02:10)
[2024-07-05] MEDS ORDERED: ACETAMINOPHEN TAB 650MG DOSE (2X325MG) PO PRN (02:10)
[2024-07-05] MEDS: NS 1,000 ML IV ONE (02:20)
[2024-07-05 02:35] VITALS: BP 127/68; TEMP 97.2; O2SAT 91
[2024-07-05] MEDS ORDERED: guaiFENesin SYRUP 200MG 10ML UDC PO PRN (06:05)
[2024-07-05 07:54] LABS: HEMATOCRIT 38.1 % (36.0-47.0); HEMOGLOBIN 12.8 g/dl (12.0-15.5); MEAN CORPUSCULAR HEMOGLOBIN 29.5 pg (27.0-33.0); MEAN CORPUSCULAR HGB CONC 33.6 g/dl (32.0-36.5); MEAN CORPUSCULAR VOLUME 87.8 fl (80.0-96.0); PLATELET COUNT, AUTOMATED 179 10^3/uL (150-450); RED BLOOD COUNT 4.34 10^6/uL (4.00-5.40); WHITE BLOOD COUNT 8.4 10^3/uL (4.0-10.0)
[2024-07-05 08:21] LABS: CALCIUM LEVEL 9.1 MG/DL (8.3-10.6); CREATININE FOR GFR 1.16 MG/DL (0.55-1.30); GLOMERULAR FILTRATION RATE 49.3 (>45); POTASSIUM SERUM 4.1 MMOL/L (3.5-5.1)
[2024-07-05] MEDS: LORazepam 0.5 MG TAB PO SCH (08:48)
[2024-07-05] MEDS: APIXABAN 5 MG TAB (ELIQUIS) PO SCH (08:48)
[2024-07-05] MEDS: OMEPRAZOLE 20MG CAP PO SCH (08:48)
[2024-07-05] MEDS: FLUTICASONE PROP 0.05% NASAL SPRAY 16 GM (FLONASE) NARES SCH (08:48)
[2024-07-05] MEDS: AMIODARONE 200 MG TAB (PACERONE) PO SCH (08:48)
[2024-07-05] MEDS: CALCIUM/VITAMIN D 500 MG TAB PO SCH (08:49)
[2024-07-05] MEDS: MAGNESIUM GLUCONATE 500 MG TAB PO SCH (08:49)
[2024-07-05 09:20] VITALS: BP 132/71; TEMP 97.9; O2SAT 99
[2024-07-05 12:00] VITALS: BP 128/74; TEMP 97.7; O2SAT 98
[2024-07-05] MEDS: BISACODYL 10MG SUPP PR ONE (15:16)
[2024-07-05 20:10] VITALS: BP 112/63; TEMP 98.1; O2SAT 96
[2024-07-05] MEDS: MIRALAX *UNIT DOSE* 17GM PACKET PO SCH (21:53)
[2024-07-05] MEDS: SIMVASTATIN 20 MG TAB PO SCH (21:54)
[2024-07-06 03:10] VITALS: BP 129/64; TEMP 97.9; O2SAT 98
[2024-07-06] MEDS: LEVOTHYROXINE 25MCG TABLET (0.025MG) PO SCH (06:00)
[2024-07-06 06:40] LABS: HEMATOCRIT 36.1 % (36.0-47.0); HEMOGLOBIN 12.4 g/dl (12.0-15.5); MEAN CORPUSCULAR HEMOGLOBIN 30.2 pg (27.0-33.0); MEAN CORPUSCULAR HGB CONC 34.3 g/dl (32.0-36.5); MEAN CORPUSCULAR VOLUME 87.8 fl (80.0-96.0); PLATELET COUNT, AUTOMATED 188 10^3/uL (150-450); RED BLOOD COUNT 4.11 10^6/uL (4.00-5.40); WHITE BLOOD COUNT 13.8 10^3/uL (4.0-10.0)
[2024-07-06 07:09] LABS: ALBUMIN 2.9 G/DL (3.2-5.2); BILIRUBIN,TOTAL 0.6 MG/DL (0.3-1.2); CALCIUM LEVEL 8.9 MG/DL (8.3-10.6); CREATININE FOR GFR 1.45 MG/DL (0.55-1.30); GLOMERULAR FILTRATION RATE 38.1 (>45); POTASSIUM SERUM 4.4 MMOL/L (3.5-5.1); TOTAL PROTEIN 5.6 G/DL (5.7-8.2)
[2024-07-06] MEDS: LR 500 ML IV SCH (08:25)
[2024-07-06] MEDS ORDERED: LORA-1041 PO (09:40)
[2024-07-06] MEDS ORDERED: CVS13CRE TOP (09:43)
[2024-07-06] MEDS ORDERED: HOME MED LIST COMPLETE! XX SCH (09:50)
[2024-07-06 11:58] VITALS: BP 100/54; TEMP 97.2; O2SAT 89
[2024-07-06 12:05] VITALS: BP 82/50; O2SAT 92
[2024-07-06] MEDS: LR 1,000 ML IV ONE (12:41)
[2024-07-06 14:12] VITALS: BP 122/72
[2024-07-06 16:50] LABS: CALCIUM LEVEL 8.7 MG/DL (8.3-10.6); CREATININE FOR GFR 1.44 MG/DL (0.55-1.30); GLOMERULAR FILTRATION RATE 38.4 (>45); POTASSIUM SERUM 4.6 MMOL/L (3.5-5.1)
[2024-07-06 20:00] VITALS: BP 114/66; TEMP 97.7; O2SAT 94
[2024-07-07 04:00] VITALS: BP 153/83; TEMP 97.3; O2SAT 96
[2024-07-07 05:15] LABS: HEMATOCRIT 35.1 % (36.0-47.0); HEMOGLOBIN 11.7 g/dl (12.0-15.5); MEAN CORPUSCULAR HEMOGLOBIN 29.6 pg (27.0-33.0); MEAN CORPUSCULAR HGB CONC 33.3 g/dl (32.0-36.5); MEAN CORPUSCULAR VOLUME 88.9 fl (80.0-96.0); PLATELET COUNT, AUTOMATED 177 10^3/uL (150-450); RED BLOOD COUNT 3.95 10^6/uL (4.00-5.40)
[2024-07-07 05:38] LABS: CALCIUM LEVEL 8.8 MG/DL (8.3-10.6); CREATININE FOR GFR 1.31 MG/DL (0.55-1.30); GLOMERULAR FILTRATION RATE 42.9 (>45); MAGNESIUM LEVEL 1.9 MG/DL (1.8-2.4); POTASSIUM SERUM 4.3 MMOL/L (3.5-5.1)
[2024-07-07] MEDS: LEVOTHYROXINE 37.5MCG PER 1/2TAB (0.0375MG) PO SCH (05:44)
[2024-07-07 08:14] VITALS: BP 141/78; O2SAT 95
[2024-07-07 12:00] VITALS: BP 114/67; TEMP 97.3; O2SAT 97
== END 2024-07-07 14:44 | disposition home or self-care (01) | DRG 312 ==
LOC: M ED 19:47 → EDBD 19:47 → M ED INP 19:48 → INTOOBSV 07-05 01:25 → M ED INP 07-05 01:25 → UNDOADMOB 07-05 01:25 → M ED INP 07-05 02:46 → M MSPAV 07-05 02:46 → M ED INP 07-05 09:15 → M MSPAV 07-05 09:15 → OBSVTOIN 07-06 12:26
PROVIDERS: ADMIT Preventive Medicine Undersea and Hyperbaric Medicine; ATTEND Hospitalist
DX: R55 Syncope and collapse (principal); E87.1 Hypo-osmolality and hyponatremia; N17.9 Acute kidney failure, unspecified; I48.91 Unspecified atrial fibrillation; F79 Unspecified intellectual disabilities; K44.9 Diaphragmatic hernia without obstruction or gangrene; N18.30 Chronic kidney disease, stage 3 unspecified; M17.0 Bilateral primary osteoarthritis of knee; K21.9 Gastro-esophageal reflux disease without esophagitis; K59.00 Constipation, unspecified; E78.5 Hyperlipidemia, unspecified; E03.9 Hypothyroidism, unspecified; Z79.01 Long term (current) use of anticoagulants; Z79.890 Hormone replacement therapy; Z79.899 Other long term (current) drug therapy; Z88.5 Allergy status to narcotic agent; Z88.6 Allergy status to analgesic agent

== ENCOUNTER → 2024-07-17 | Outpatient (CLI) | payer MEDICARE, MEDICAID ==
[~2024-07-17] MED LIST changes: +AMIO200T37 PO; +CVS13CRE TOP; +LORA-1041 PO; +SERT-141 PO
[2024-07-17 16:57] LABS: BASO % 0.8 % (0.0-1.0); EOS % 0.2 % (0.0-3.0); HEMATOCRIT 38.5 % (36.0-47.0); HEMOGLOBIN 12.5 g/dl (12.0-15.5); LYMPH # 0.8 10^3/uL (1.5-5.0); LYMPH % 14.3 % (24.0-44.0); MEAN CORPUSCULAR HEMOGLOBIN 29.8 pg (27.0-33.0); MEAN CORPUSCULAR HGB CONC 32.5 g/dl (32.0-36.5); MEAN CORPUSCULAR VOLUME 91.7 fl (80.0-96.0); MONO # 0.3 10^3/uL (0.0-0.8); MONO % 5.9 % (2.0-8.0); NEUTROPHILS # 4.1 10^3/uL (1.5-8.5); NEUTROPHILS % 78.4 % (36.0-66.0); PLATELET COUNT, AUTOMATED 215 10^3/uL (150-450); WHITE BLOOD COUNT 5.3 10^3/uL (4.0-10.0)
[2024-07-17 17:04] LABS: HEMOGLOBIN A1c 5.4 % (4.0-6.0)
[2024-07-17 17:41] LABS: ALBUMIN 3.5 G/DL (3.2-5.2); BILIRUBIN,TOTAL 0.4 MG/DL (0.3-1.2); CALCIUM LEVEL 9.3 MG/DL (8.3-10.6); CREATININE FOR GFR 1.38 MG/DL (0.55-1.30); FERRITIN 79.2 NG/ML (7.3-270.7); GLOMERULAR FILTRATION RATE 40.2 (>39); MAGNESIUM LEVEL 2.2 MG/DL (1.8-2.4); POTASSIUM SERUM 4.2 MMOL/L (3.5-5.1); THYROID STIMULATING HORMONE 3.917 uIU/ML (0.55-4.78); TOTAL 25(OH) VITAMIN D 76.7 NG/ML (20.0-100.0); TOTAL PROTEIN 6.5 G/DL (5.7-8.2)
[2024-07-17 17:42] LABS: FREE T4 1.03 NG/DL (0.89-1.76)
[2024-07-20 09:06] LABS: INSULIN LEVEL 9.8 uIU/mL (<=18.4)
[2024-07-24 18:18] LABS: ALPHA 2-MACROGLOBULINS,QN 227 mg/dL (106-279); ALT (SGPT) P5P 25 U/L (6-29); APOLIPOPROTEIN A-1 216 mg/dL (101-198); BILIRUBIN, TOTAL 0.4 mg/dL (0.2-1.2); FIBROSIS SCORE 0.18; FIBROSIS STAGE NO FIBROSIS (F0); GGT 13 U/L (3-65); HAPTOGLOBIN 46 mg/dL (43-212); NECROINFLAM ACT GRADE NO ACTIVITY (A0)
== END ==
LOC: M WUC 14:02
PROVIDERS: ATTEND Family Medicine
DX: N18.31 Chronic kidney disease, stage 3a (principal); I48.0 Paroxysmal atrial fibrillation; E78.5 Hyperlipidemia, unspecified; E03.9 Hypothyroidism, unspecified; R73.01 Impaired fasting glucose; E55.9 Vitamin D deficiency, unspecified; I50.20 Unspecified systolic (congestive) heart failure; E87.1 Hypo-osmolality and hyponatremia; K76.0 Fatty (change of) liver, not elsewhere classified

== ENCOUNTER → 2025-01-18 | Outpatient (CLI) | payer MEDICARE, MEDICAID ==
[~2025-01-18] MED LIST changes: -LACT10SO3 PO; +LACT10SO94 PO
[2025-01-18 12:29] LABS: BASO % 0.4 % (0.0-1.0); EOS % 0.4 % (0.0-3.0); HEMATOCRIT 37.2 % (36.0-47.0); HEMOGLOBIN 12.3 g/dl (12.0-15.5); LYMPH # 0.9 10^3/uL (1.5-5.0); LYMPH % 15.8 % (24.0-44.0); MEAN CORPUSCULAR HEMOGLOBIN 31.5 pg (27.0-33.0); MEAN CORPUSCULAR HGB CONC 33.1 g/dl (32.0-36.5); MEAN CORPUSCULAR VOLUME 95.1 fl (80.0-96.0); MONO # 0.4 10^3/uL (0.0-0.8); MONO % 8.2 % (2.0-8.0); NEUTROPHILS % 74.8 % (36.0-66.0); PLATELET COUNT, AUTOMATED 172 10^3/uL (150-450); RED BLOOD COUNT 3.91 10^6/uL (4.00-5.40); WHITE BLOOD COUNT 5.4 10^3/uL (4.0-10.0)
[2025-01-18 12:34] LABS: ALBUMIN 3.6 G/DL (3.2-5.2); BILIRUBIN,TOTAL 0.5 MG/DL (0.3-1.2); CREATININE FOR GFR 1.29 MG/DL (0.55-1.30); GLOMERULAR FILTRATION RATE 44.7 (>39); POTASSIUM SERUM 4.4 MMOL/L (3.5-5.1); TOTAL PROTEIN 6.5 G/DL (5.7-8.2)
[2025-01-18 12:35] LABS: FREE T4 0.97 NG/DL (0.89-1.76); THYROID STIMULATING HORMONE 5.958 uIU/ML (0.55-4.78)
[2025-01-18 12:36] LABS: FERRITIN 29.4 NG/ML (7.3-270.7)
== END ==
LOC: M WUC 08:18
PROVIDERS: ATTEND Family Medicine
DX: N18.31 Chronic kidney disease, stage 3a (principal); I48.0 Paroxysmal atrial fibrillation; E78.5 Hyperlipidemia, unspecified; E03.9 Hypothyroidism, unspecified; R73.01 Impaired fasting glucose; I50.20 Unspecified systolic (congestive) heart failure; D50.9 Iron deficiency anemia, unspecified

== ENCOUNTER → 2025-05-31 | Outpatient (CLI) | payer MEDICARE, MEDICAID ==
[~2025-05-31] MED LIST changes: -AMIO200T49 PO; +AMIO200T54 PO
== END ==
LOC: M WHC 11:52
PROVIDERS: ATTEND Family Medicine
DX: Z12.31 Encounter for screening mammogram for malignant neoplasm of breast (principal); R92.1 Mammographic calcification found on diagnostic imaging of breast
CPT/HCPCS: 76641; 77065; G0279

== ENCOUNTER → 2025-06-10 | Outpatient (CLI) | payer MEDICARE, MEDICAID ==
[2025-06-10 10:47] LABS: BASO # 0.0 10^3/uL (0.0-0.2); BASO % 0.3 % (0.0-1.0); EOS # 0.1 10^3/uL (0.0-0.5); EOS % 1.2 % (0.0-3.0); LYMPH # 0.8 10^3/uL (1.5-5.0); LYMPH % 12.8 % (24.0-44.0); MONO # 0.6 10^3/uL (0.0-0.8); MONO % 9.6 % (2.0-8.0); NEUTROPHILS # 4.4 10^3/uL (1.5-8.5); NEUTROPHILS % 75.8 % (36.0-66.0); PLATELET COUNT, AUTOMATED 199 10^3/uL (150-450)
[2025-06-10 11:21] LABS: ALT/SGPT 36.0 U/L (7.0-40); AST/SGOT 38.0 U/L (<34); CALCIUM LEVEL 9.1 MG/DL (8.3-10.6); CARBON DIOXIDE LEVEL 33.0 MMOL/L (20-31); CHLORIDE LEVEL 100.0 MMOL/L (98-107); CHOLESTEROL LEVEL 168.0 MG/DL (<200); CHOLESTEROL RISK RATIO 2.11 (<5); CREATININE FOR GFR 1.7 MG/DL (0.55-1.30); GLOMERULAR FILTRATION RATE 32.1 (>39); LDL CHOLESTEROL 78.1 MG/DL (<100); MAGNESIUM LEVEL 2.0 MG/DL (1.8-2.4); NON-HDL-C 88.7 MG/DL; POTASSIUM SERUM 4.8 MMOL/L (3.5-5.1); PTH INTACT 47.7 PG/ML (18.5-88.0); SODIUM LEVEL 139.0 MMOL/L (136-145); TRIGLYCERIDES LEVEL 53.0 MG/DL (<150)
[2025-06-10 11:22] LABS: FREE T4 1.0 NG/DL (0.89-1.76)
[2025-06-10 11:23] LABS: TOTAL 25(OH) VITAMIN D 40.5 NG/ML (20.0-100.0)
[2025-06-10 11:24] LABS: VITAMIN B12 LEVEL 809.0 PG/ML (211-911)
== END ==
LOC: M PLALAB 09:42
PROVIDERS: ATTEND Family Medicine
DX: N18.31 Chronic kidney disease, stage 3a (principal); E55.9 Vitamin D deficiency, unspecified; E03.9 Hypothyroidism, unspecified; E78.5 Hyperlipidemia, unspecified; I50.20 Unspecified systolic (congestive) heart failure; D50.9 Iron deficiency anemia, unspecified; I16.0 Hypertensive urgency

== ENCOUNTER 2025-07-12 14:48 | Outpatient (CLI) | payer MEDICARE, MEDICAID ==
[~2025-07-12 14:48] MED LIST changes: +ALBUTEROL SULFATE 2.5 MG/0.5 ML INH CONCENTRATE NEB SOLN INH PRN; +EPINEPHrine INJ 1 MG/ML 1ML AMP IM PRN; +diphenhydrAMINE 50 MG/ML VIAL IV PRN
[2025-07-12 15:15] VITALS: BP 152/67; O2SAT 99
[2025-07-12] MEDS: FERRIC CARBOXYMALTOSE 750 MG (VIAL MATE) IN 100ML NS IV ONE (15:27)
[2025-07-12 16:00] VITALS: BP 146/66; O2SAT 98
== END 2025-07-12 16:15 | disposition home or self-care (01) ==
LOC: M INFU 14:48
PROVIDERS: ATTEND Family Medicine
DX: D50.9 Iron deficiency anemia, unspecified (principal); Z88.5 Allergy status to narcotic agent; Z88.6 Allergy status to analgesic agent
CPT/HCPCS: 96365; J1439

== ENCOUNTER → 2025-08-05 | Outpatient (CLI) | payer MEDICARE, MEDICAID ==
[~2025-08-05] MED LIST changes: -ALBUTEROL SULFATE 2.5 MG/0.5 ML INH CONCENTRATE NEB SOLN INH PRN; -EPINEPHrine INJ 1 MG/ML 1ML AMP IM PRN; -diphenhydrAMINE 50 MG/ML VIAL IV PRN
[2025-08-05 14:24] LABS: BASO # 0.0 10^3/uL (0.0-0.2); BASO % 0.5 % (0.0-1.0); EOS # 0.1 10^3/uL (0.0-0.5); EOS % 0.8 % (0.0-3.0); LYMPH # 0.7 10^3/uL (1.5-5.0); LYMPH % 11.5 % (24.0-44.0); MONO # 0.4 10^3/uL (0.0-0.8); MONO % 7.0 % (2.0-8.0); NEUTROPHILS # 5.0 10^3/uL (1.5-8.5); NEUTROPHILS % 79.9 % (36.0-66.0); PLATELET COUNT, AUTOMATED 199 10^3/uL (150-450)
[2025-08-05 14:40] LABS: ALT/SGPT 49.0 U/L (7.0-40); AST/SGOT 42.0 U/L (<34); CALCIUM LEVEL 9.4 MG/DL (8.3-10.6); CARBON DIOXIDE LEVEL 34.0 MMOL/L (20-31); CHLORIDE LEVEL 98.0 MMOL/L (98-107); CREATININE FOR GFR 1.48 MG/DL (0.55-1.30); FREE T4 1.08 NG/DL (0.89-1.76); GLOMERULAR FILTRATION RATE 37.6 (>39); MAGNESIUM LEVEL 2.0 MG/DL (1.8-2.4); POTASSIUM SERUM 5.0 MMOL/L (3.5-5.1); SODIUM LEVEL 139.0 MMOL/L (136-145)
[2025-08-05 14:54] LABS: ESTIMATED AVERAGE GLUCOSE 111.0 MG/DL (60-110)
== END ==
LOC: M PLALAB 09:26
PROVIDERS: ATTEND Family Medicine
DX: N18.31 Chronic kidney disease, stage 3a (principal); I48.0 Paroxysmal atrial fibrillation; D50.9 Iron deficiency anemia, unspecified; E03.9 Hypothyroidism, unspecified; R73.01 Impaired fasting glucose; I50.20 Unspecified systolic (congestive) heart failure

== ENCOUNTER 2025-08-13 21:56 | Emergency (ER) | payer MEDICAID, MEDICARE ==
[2025-08-13] MEDS: NS (Normal Saline) 0.9% 1,000 ML IV SCH (10:00)
[2025-08-13] MEDS ORDERED: ISOVUE-370 76% 100 ML VIAL As Ordered ONE (22:37)
[2025-08-13 22:43] LABS: BASO # 0.0 10^3/uL (0.0-0.2); BASO % 0.4 % (0.0-1.0); EOS # 0.1 10^3/uL (0.0-0.5); EOS % 1.0 % (0.0-3.0); LYMPH # 1.1 10^3/uL (1.5-5.0); LYMPH % 16.1 % (24.0-44.0); MONO # 0.8 10^3/uL (0.0-0.8); MONO % 11.1 % (2.0-8.0); NEUTROPHILS # 4.8 10^3/uL (1.5-8.5); NEUTROPHILS % 71.1 % (36.0-66.0); PLATELET COUNT, AUTOMATED 164 10^3/uL (150-450)
[2025-08-13] MEDS: PANTOPRAZOLE 40MG VIAL IV ONE (22:49)
[2025-08-13 23:01] LABS: INR 1.03
[2025-08-13 23:12] LABS: ALT/SGPT 48.0 U/L (7.0-40); AST/SGOT 55.0 U/L (<34); CALCIUM LEVEL 8.7 MG/DL (8.3-10.6); CARBON DIOXIDE LEVEL 29.0 MMOL/L (20-31); CHLORIDE LEVEL 99.0 MMOL/L (98-107); CREATININE FOR GFR 1.34 MG/DL (0.55-1.30); GLOMERULAR FILTRATION RATE 42.4 (>39); POTASSIUM SERUM 4.8 MMOL/L (3.5-5.1); SODIUM LEVEL 135.0 MMOL/L (136-145)
[2025-08-14 01:30] LABS: PLATELET COUNT, AUTOMATED 141 10^3/uL (150-450)
[2025-08-14 04:14] VITALS: BP 139/64; TEMP 97.1; O2SAT 99
== END 2025-08-14 04:15 | disposition short-term general hospital (02) ==
LOC: M ED 21:56
DX: K92.2 Gastrointestinal hemorrhage, unspecified (principal); R00.1 Bradycardia, unspecified; I49.1 Atrial premature depolarization; M19.90 Unspecified osteoarthritis, unspecified site; I44.4 Left anterior fascicular block; K21.9 Gastro-esophageal reflux disease without esophagitis; E55.9 Vitamin D deficiency, unspecified; E78.5 Hyperlipidemia, unspecified; F79 Unspecified intellectual disabilities; Z88.5 Allergy status to narcotic agent; Z88.6 Allergy status to analgesic agent; Z79.1 Long term (current) use of non-steroidal anti-inflammatories (NSAID); Z79.899 Other long term (current) drug therapy; Z79.01 Long term (current) use of anticoagulants
CPT/HCPCS: 74174; 80047; 80053; 85025; 85027; 85384; 85610; 85730; 86850; 86900; 86901; 93005; 93041; 94760; 96361; 96374; 99285; J2470; Q9967

== ENCOUNTER → 2025-09-03 | Outpatient (CLI) | payer MEDICARE, MEDICAID ==
[2025-09-03 15:56] LABS: ALT/SGPT 43 U/L (7.0-40); AST/SGOT 32 U/L (<34); BASO # 0.0 10^3/uL (0.0-0.2); BASO % 0.7 % (0.0-1.0); C REACTIVE PROTEIN QUANTITATIV < 0.50 MG/DL (<1.0); CALCIUM LEVEL 8.7 MG/DL (8.3-10.6); CARBON DIOXIDE LEVEL 30 MMOL/L (20-31); CHLORIDE LEVEL 99 MMOL/L (98-107); CREATININE FOR GFR 1.21 MG/DL (0.55-1.30); EOS # 0.0 10^3/uL (0.0-0.5); EOS % 0.5 % (0.0-3.0); FREE T4 1.04 NG/DL (0.89-1.76); GLOMERULAR FILTRATION RATE 47.9 (>39); LYMPH # 0.6 10^3/uL (1.5-5.0); LYMPH % 11.2 % (24.0-44.0); MONO # 0.4 10^3/uL (0.0-0.8); MONO % 7.2 % (2.0-8.0); NEUTROPHILS # 4.4 10^3/uL (1.5-8.5); NEUTROPHILS % 80.0 % (36.0-66.0); PLATELET COUNT, AUTOMATED 246 10^3/uL (150-450); POTASSIUM SERUM 4.3 MMOL/L (3.5-5.1); SODIUM LEVEL 139 MMOL/L (136-145); VITAMIN B12 LEVEL 1098 PG/ML (211-911)
== END ==
LOC: M PLALAB 12:06
PROVIDERS: ATTEND Family Medicine
DX: D50.9 Iron deficiency anemia, unspecified (principal); I48.0 Paroxysmal atrial fibrillation; E03.9 Hypothyroidism, unspecified; K75.81 Nonalcoholic steatohepatitis (NASH)